=== PATIENT | male | born 1960 | race Caucasian/White ===

== ENCOUNTER 2017-03-23 21:33 | Observation (INO) | payer SELFPAY ==
[~2017-03-23] VITALS: Ht 175.3 cm; Wt 68.0 kg
[~2017-03-23 21:33] MED LIST: ACHD5005 PO; AMOX-355 PO; APIX5TAB PO; MULT-609 PO; OXYC-471 PO; PRD10T PO; RIVA15TA PO
[2017-03-23] MEDS ORDERED: LACTATED RINGERS 1,000 ML IV ONE (21:44)
[2017-03-23 21:58] LABS: BASOPHILS # (AUTO) 0.1 10^3/uL (0.0-0.1); BASOPHILS % (AUTO) 1 % (0-10); EOSINOPHILS # (AUTO) 0.2 10^3/uL (0.0-0.3); EOSINOPHILS % (AUTO) 2 % (0-10); HEMATOCRIT 48 % (40-54); HEMOGLOBIN 17.4 G/DL (13.3-17.7); LYMPHOCYTES # (AUTO) 3.4 X 10^3 (1.0-4.0); LYMPHOCYTES % (AUTO) 42 % (12-44); MEAN CORPUSCULAR HEMOGLOBIN 37 PG (25-34); MEAN CORPUSCULAR HGB CONC 36 G/DL (32-36); MEAN CORPUSCULAR VOLUME 101 FL (80-99); MEAN PLATELET VOLUME 9.2 FL (7.4-10.4); MONOCYTES # (AUTO) 0.6 X 10^3 (0.0-1.0); MONOCYTES % (AUTO) 7 % (0-12); NEUTROPHILS # (AUTO) 3.9 X 10^3 (1.8-7.8); NEUTROPHILS % (AUTO) 48 % (42-75); PLATELET COUNT 192 10^3/uL (130-400); RED BLOOD COUNT 4.77 10^6/uL (4.35-5.85); RED CELL DISTRIBUTION WIDTH 13.4 % (10.0-14.5); WHITE BLOOD COUNT 8.2 10^3/uL (4.3-11.0)
[2017-03-23 22:11] LABS: INR 0.8 (0.8-1.4); PROTHROMBIN TIME PATIENT 11.6 SEC (12.2-14.7)
[2017-03-23] MEDS ORDERED: PRD20T (22:17)
[2017-03-23] MEDS ORDERED: ALBU2.5V4 (22:17)
[2017-03-23 22:18] LABS: ALANINE AMINOTRANSFERASE 16 U/L (0-55); ALBUMIN 4.4 GM/DL (3.2-4.5); ALKALINE PHOSPHATASE 69 U/L (40-136); AMYLASE 195 U/L (25-125); BILIRUBIN,TOTAL 0.9 MG/DL (0.1-1.0); BUN/CREATININE RATIO 9; CALCIUM 9.2 MG/DL (8.5-10.1); CARBON DIOXIDE 25 MMOL/L (21-32); CHLORIDE 99 MMOL/L (98-107); CREATININE SERUM 0.85 MG/DL (0.60-1.30); GFR ESTIMATED > 60; GLUCOSE 88 MG/DL (70-105); LIPASE 370 U/L (8-78); SODIUM 139 MMOL/L (135-145); TOTAL PROTEIN 7.2 GM/DL (6.4-8.2)
[2017-03-23 22:22] LABS: BILIRUBIN,URINE NEGATIVE (NEGATIVE); CLARITY,URINE CLEAR; COLOR,URINE YELLOW; GLUCOSE, URINE (UA) NEGATIVE (NEGATIVE); KETONES,URINE NEGATIVE (NEGATIVE); LEUKOCYTE ESTERASE ,URINE NEGATIVE (NEGATIVE); NITRITE,URINE NEGATIVE (NEGATIVE); PH,URINE 6.5 (5-9); PROTEIN,URINE NEGATIVE (NEGATIVE); UROBILINOGEN,URINE NORMAL (NORMAL)
[2017-03-23 22:29] LABS: SQUAMOUS EPITHELIAL CELL,UR RARE /HPF
[2017-03-23 22:43] LABS: AMPHETAMINE SCREEN, URINE NEGATIVE (NEGATIVE); BARBITURATE SCREEN URINE NEGATIVE (NEGATIVE); BENZODIAZEPINES SCREEN URINE NEGATIVE (NEGATIVE); CANNABINOID SCREEN, URINE NEGATIVE (NEGATIVE); COCAINE SCREEN URINE NEGATIVE (NEGATIVE); METHADONE STAT NEGATIVE (NEGATIVE); METHAMPHETAMINE SCREEN URINE S NEGATIVE (NEGATIVE); OPIATE SCREEN URINE NEGATIVE (NEGATIVE); OXYCODONE STAT NEGATIVE (NEGATIVE); PROPOXYPHENE STAT NEGATIVE (NEGATIVE); TRICYCLIC ANTIDEPRESSANTS SCRE NEGATIVE (NEGATIVE)
[2017-03-24] VITALS (16 sets, daily range): BP systolic 92–113; BP diastolic 64–84
[2017-03-24] MEDS ORDERED: D5 1/2 NS 1000 ML IV SOLUTION 1,000 ML IV ONE (01:34)
[2017-03-24] MEDS: D5 1/2 NS 1000 ML IV SOLUTION 1,000 ML IV SCH ×2 (02:53→10:21)
[2017-03-24 04:06] LABS: BASOPHILS % (AUTO) 0 % (0-10); EOSINOPHILS # (AUTO) 0.2 10^3/uL (0.0-0.3); EOSINOPHILS % (AUTO) 3 % (0-10); HEMATOCRIT 42 % (40-54); LYMPHOCYTES # (AUTO) 2.3 X 10^3 (1.0-4.0); LYMPHOCYTES % (AUTO) 33 % (12-44); MEAN CORPUSCULAR HEMOGLOBIN 36 PG (25-34); MEAN CORPUSCULAR HGB CONC 36 G/DL (32-36); MEAN CORPUSCULAR VOLUME 101 FL (80-99); MEAN PLATELET VOLUME 9.6 FL (7.4-10.4); MONOCYTES # (AUTO) 0.6 X 10^3 (0.0-1.0); MONOCYTES % (AUTO) 9 % (0-12); NEUTROPHILS # (AUTO) 3.8 X 10^3 (1.8-7.8); NEUTROPHILS % (AUTO) 56 % (42-75); PLATELET COUNT 191 10^3/uL (130-400); RED BLOOD COUNT 4.16 10^6/uL (4.35-5.85); RED CELL DISTRIBUTION WIDTH 13.2 % (10.0-14.5); WHITE BLOOD COUNT 6.9 10^3/uL (4.3-11.0)
[2017-03-24 04:36] LABS: ALANINE AMINOTRANSFERASE 13 U/L (0-55); ALBUMIN 3.6 GM/DL (3.2-4.5); ALKALINE PHOSPHATASE 58 U/L (40-136); AMYLASE 97 U/L (25-125); BILIRUBIN,TOTAL 0.7 MG/DL (0.1-1.0); BUN/CREATININE RATIO 10; CALCIUM 8.5 MG/DL (8.5-10.1); CARBON DIOXIDE 26 MMOL/L (21-32); CHLORIDE 107 MMOL/L (98-107); GFR ESTIMATED > 60; GLUCOSE 105 MG/DL (70-105); LIPASE 75 U/L (8-78); MAGNESIUM 1.6 MG/DL (1.8-2.4); PHOSPHORUS 2.2 MG/DL (2.3-4.7); SODIUM 143 MMOL/L (135-145); TOTAL PROTEIN 5.7 GM/DL (6.4-8.2)
[2017-03-24] MEDS ORDERED: POTASSIUM CL 10MEQ/50ML IVPB 50 ML IV SCH (06:00)
[2017-03-24] MEDS ORDERED: MAGNESIUM 1 GM/100 ML IVPB 100 ML IV SCH (06:00)
[2017-03-24] MEDS ORDERED: KCL 20 MEQ TAB (K-DUR) PO SCH (06:00)
[2017-03-24] MEDS: MAGNESIUM 1 GM/100 ML IVPB 100 ML IV SCH ×2 (06:37→08:37)
--- NOTE | 2017-03-24 07:42 | Diagnostic Imaging Report ---
INDICATION: Trauma. Exam compared with CT chest, abdomen and pelvis performed 08/14/2015 which include sagittal and coronal reconstructions. FINDINGS: Endplate concavities with vertebral stature loss involving the C7, T2, T3, T4 and T5 levels are redemonstrated from prior and showed no progressive stature loss and these are believed stable and chronic. There are old healed deformities to the sternum partially visualized at this exam. Lower thoracic stature is unremarkable. The lumbar vertebral body heights and their alignment appeared unremarkable. The visualized ribs segments showed no acute fracture. There is no evidence for paravertebral hematoma. Advanced COPD with right greater than left biapical parenchymal scarring. No dislocation. IMPRESSION: Stable old healed spinal deformities. No acute injury evident. Dictated by: Dictated on workstation # [id number]
--- NOTE | 2017-03-24 07:54 | Diagnostic Imaging Report ---
PROCEDURE: CT chest, abdomen, and pelvis with contrast. TECHNIQUE: Multiple contiguous axial images were obtained through the chest, abdomen, and pelvis after the administration of intravenous contrast. INDICATION: Trauma. Chest: Exam compared with previous dated 08/14/2015. Old healed deformities to the clavicles, left shoulder, multiple ribs and multiple lower cervical and upper thoracic vertebral bodies are unchanged. An acute or unhealed fracture deformity is not identified. Severe COPD chronic with right greater than left apical pleural-parenchymal scarring. No findings of lung contusion. No pneumothorax or hemothorax. The aorta is intact. No pericardial hemorrhage. Abdomen and pelvis: There is no free fluid or hemoperitoneum. There is no free air. No acute fracture deformity. No mass or adenopathy. No bowel, biliary or urinary tract obstruction. IMPRESSION: Chest: COPD and old osseous deformities. No acute posttraumatic sequelae identified. Abdomen and pelvis: No findings of solid or hollow visceral injury or acute bony injury. Dictated by: Dictated on workstation # [id number]
--- NOTE | 2017-03-24 07:59 | Diagnostic Imaging Report ---
PROCEDURE: CT head, face, and cervical spine without contrast. TECHNIQUE: Multiple contiguous axial images were obtained through the head, neck, and facial bones without the use of intravenous contrast. Sagittal and coronal reformations through the cervical spine and facial bones were also performed. INDICATION: Fall, bruising and pain CT HEAD: There is no hemorrhage, hydrocephalus, edema, mass, mass effect or evidence for elevated intracranial pressures. There is some right preseptal and facial soft tissue swelling, the calvarium revealed no fracture deformity or depressed injury. There is no hemo-sinus although there is membrane thickening of ethmoid air cells anteriorly as well as the left maxillary sinus. The mastoids are clear. No fracture deformity evident. CT cervical spine: Chronic superior end plate concavity smooth and well marginated. C7 is unchanged when correlated with reconstruction views obtained during the time of a chest CT 08/14/2015. Remaining levels maintain a normal stature and are aligned anatomically. The skull base intact. Incidental incomplete fusion of the C1 arch posteriorly is a variant noted. No paravertebral hemorrhage. No substantial canal stenosis. CT facial bones: Mandible is intact. Zygomatic arches intact. Nasal bones and bony nasal septum intact. There is mild paranasal sinus membrane thickening without air-fluid level or hemo-sinus. Pterygoid plates intact. There is some preseptal orbital soft tissue swelling on the right, no retrobulbar or post-septal hematoma. No proptosis. Globe morphology unremarkable. Anterior and posterior portillo of frontal sinus is intact. IMPRESSION: CT head: Negative. CT cervical spine: Chronic stature loss and endplate concavity is at the C7 level stable from priors. No acute cervical abnormality. CT facial bones: Right facial and preseptal orbital soft tissue swelling with chronic paranasal sinus membrane thickening. However, no facial fracture or hemo-sinus demonstrated. Dictated by: Dictated on workstation # [id number]
[2017-03-24] MEDS ORDERED: THIAMINE INJECTION 100 MG, FOLIC ACID INJECTION 1 MG, VITAMIN MULTI INJECTION 10 ML, MA... IV SCH ×5 (09:00)
[2017-03-24] MEDS ORDERED: MUPIROCIN 2% OINT 22 GM (BACTROBAN) TUBE TOP SCH (09:00)
[2017-03-24] MEDS ORDERED: TRAM50TA2 PO (12:02)
--- NOTE | 2017-03-24 12:03 | Discharge Inst-Simple/Standard ---
Discharge Inst-Standard Discharge Medications New, Converted or Re-Newed RX: RX on Chart Patient Instructions/Follow Up Plan of Care/Instructions/FU: Triple antibiotic ointment to the face. F/.U with his primary Activity as Tolerated: Yes Discharge Diet: No Restrictions Planned Outpatient Orders/Ref. Pneu Vac Indicated: Yes LAILA SALAMANCA MD Mar 24, 2017 12:03 pm
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
--- OUTSIDE RECORDS SUMMARY | 2017-03-25 10:48 | XMS REPORT ---
Author Author MARCIA GUZMÁN Organization [employer] Address Unknown Phone Unavailable Care Team Providers Care Grocery Sacker Name Role Phone MARCIA GUZMÁN CP Unavailable Allergies No Known Allergies Problems Problem Type Condition Code Onset Dates Condition Status Problem Acute deep vein thrombosis (DVT) of proximal vein of left lower extremity I82.4Y2 Active Medications Medication Code System Code Instructions Start Date End Date Status Dosage Eliquis [facility] [address]-59 5 mg Orally 2 times a day Nov 17, 2015 1 tablet Results No Known Results Summary Purpose [employer] Submission
--- OUTSIDE RECORDS SUMMARY | 2017-03-25 10:49 | XMS REPORT ---
Author Author RIC LI [facility] Address [address] [place] [address] Care Team Providers Care Plant Control Aide Name Role Phone RIC LI Unavailable PROBLEMS Type Condition ICD9-CM Code PUL34-LQ Code Onset Dates Condition Status SNOMED Code Problem Pulmonary emphysema, unspecified emphysema type J43.9 Active 11094296 Problem Age related osteoporosis M81.0 Active 932525237 Problem Chronic deep vein thrombosis (DVT) of popliteal vein of both lower extremities I82.533 Active 479728387701680 Problem Acute deep vein thrombosis (DVT) of proximal vein of left lower extremity I82.4Y2 Active 480262307036 ALLERGIES Unknown Allergies SOCIAL HISTORY No smoking Hx information available PLAN OF CARE VITAL SIGNS MEDICATIONS Unknown Medications RESULTS No Results PROCEDURES No Known procedures IMMUNIZATIONS No Known Immunizations
--- OUTSIDE RECORDS SUMMARY | 2017-03-25 10:49 | XMS REPORT ---
Author Author RIC LI Organization [facility] Address [address] [place] [address] Care Team Providers Care Green Prize Packer Name Role Phone RIC LI Unavailable PROBLEMS Type Condition ICD9-CM Code LXZ83-LN Code Onset Dates Condition Status SNOMED Code Problem Acute exacerbation of chronic obstructive pulmonary disease (COPD) J44.1 Active 358075086 Problem Chronic deep vein thrombosis (DVT) of popliteal vein of both lower extremities I82.533 Active 184479252628466 Problem Acute deep vein thrombosis (DVT) of proximal vein of left lower extremity I82.4Y2 Active 734101535699 Problem Pulmonary emphysema, unspecified emphysema type J43.9 Active 34433067 Problem Age related osteoporosis M81.0 Active 482566705 ALLERGIES No Known Allergies SOCIAL HISTORY Never Assessed PLAN OF CARE Activity Details Follow Up 3 Months with [place] Reason: VITAL SIGNS Height 67 in 2016-07-04 Weight 110 lbs 2016-07-04 Temperature 98 degrees Fahrenheit 2016-07-04 Heart Rate 80 bpm 2016-07-04 Respiratory Rate 20 2016-07-04 BMI 17.23 kg/m2 2016-07-04 Blood pressure systolic 90 mmHg 2016-07-04 Blood pressure diastolic 60 mmHg 2016-07-04 MEDICATIONS Medication Instructions Dosage Frequency Start Date End Date Duration Status Eliquis 5 mg Orally 2 times a day 1 tablet 12h Nov, Active Combivent Respimat 20-100 MCG/ACT Inhalation Four times a day 1 puff 6h June, Active Advair Diskus 100-50 MCG/DOSE Inhalation Twice a day 1 puff 12h Active Combivent Active RESULTS No Results PROCEDURES Procedure Date Ordered Result Body Site PCV 13 July 04, 2016 SINGLE IMMUNIZATION ADMIN July 04, 2016 IMMUNIZATIONS Vaccine Route Administration Date Status PCV 13 IM Intramuscular July 04, 2016 Administered MEDICAL (GENERAL) HISTORY Type Description Date Medical History 2016 blood clot Medical History emphysema Surgical History thoracoscopy Surgical History osteomyelitis right leg x 4 Hospitalization History pneumonia Hospitalization History blood clots x5 Hospitalization History broken ribs, clavicle, scapula and collapsed left lung.
--- OUTSIDE RECORDS SUMMARY | 2017-03-25 10:49 | XMS REPORT ---
Author Author RIC LI Organization [employer] Address Unknown Phone Unavailable Care Team Providers Care Senior Financial Accountant Name Role Phone RIC LI CP Unavailable Allergies No Known Allergies Problems No Known Problems Medications No Known Medications Results No Known Results Summary Purpose [employer] Submission
--- OUTSIDE RECORDS SUMMARY | 2017-03-25 10:49 | XMS REPORT ---
Author Author MARCIA GUZMÁN [facility] [employer] Address Unknown Phone Unavailable Care Team Providers Care Power Screwdriver Operator Name Role Phone MARCIA GUZMÁN CP Unavailable Allergies, Adverse Reactions, Alerts Substance Reaction Event Type N.K.D.A. Info Not Available Non Drug Allergy Problems Problem Type Condition Code Onset Dates Condition Status Assessment Acute deep vein thrombosis (DVT) of proximal vein of left lower extremity I82.4Y2 Active Problem Acute deep vein thrombosis (DVT) of proximal vein of left lower extremity I82.4Y2 Active Medications Medication Code System Code Instructions Start Date End Date Status Dosage Eliquis [facility] [address]-57 5 mg Orally 2 times a day Nov 17, 2015 as directed Procedures Procedure Coding System Code Date Office Visit, New Pt., Level 3 CPT-4 37823 Nov 17, 2015 Vital Signs Date/Time: Nov 17, 2015 Cardiac Monitoring Heart Rate 96 bpm Weight 99.4 lbs Height 67 in BMI 15.57 Index Blood Pressure Diastolic 70 mmHg Blood Pressure Systolic 118 mmHg Results No Known Results Summary Purpose [employer] Submission
--- OUTSIDE RECORDS SUMMARY | 2017-03-25 10:49 | XMS REPORT ---
Author Author RIC LI Organization [employer] Address Unknown Phone Unavailable Care Team Providers Care Reproduction Technician Name Role Phone RIC LI CP Unavailable Allergies, Adverse Reactions, Alerts Substance Reaction Event Type N.K.D.A. Info Not Available Non Drug Allergy Problems Problem Type Condition Code Onset Dates Condition Status Problem Age related osteoporosis M81.0 Active Problem Chronic deep vein thrombosis (DVT) of popliteal vein of both lower extremities I82.533 Active Problem Pulmonary emphysema, unspecified emphysema type J43.9 Active Assessment Tobacco use Z72.0 Active Assessment Encounter for immunization Z23 Active Assessment Chronic lung disease J98.4 Active Assessment Acute deep vein thrombosis (DVT) of both lower extremities, unspecified vein I82.403 Active Medications Medication Code System Code Instructions Start Date End Date Status Dosage Eliquis NDC [address]-55 5 mg Orally 2 times a day Nov 17, 2015 1 tablet Combivent NDC 0 not defined Procedures Procedure Coding System Code Date SINGLE IMMUNIZATION ADMIN CPT-4 20403 Dec 01, 2015 Office Visit, Est Pt., Level 4 CPT-4 26335 Dec 01, 2015 FLUARIX QUAD P-FREE 3 AND UP .50 2015 CPT-4 12974 Dec 01, 2015 Vital Signs Date/Time: Dec 01, 2015 Cardiac Monitoring Heart Rate 88 bpm Weight 105 lbs Height 67 in BMI 16.44 Index Blood Pressure Diastolic 80 mmHg Blood Pressure Systolic 118 mmHg Results No Known Results Immunizations Vaccine Administration Date FLUARIX QUAD P-FREE 3 AND UP .50 2015Dec 01, 2015 Summary Purpose [employer] Submission
--- NOTE | 2017-03-26 12:23 | ED Fall/Injury ---
General Chief Complaint: Trauma-Non Activation Stated Complaint: CLOSED HEAD INJURY W/UNKNOWN LOSS OF CONSCIOUSNESS Nursing Triage Note: fell leaving bar- laceration times 2 over rt eye and at heair line- bleeding controlled. C/O neck and head pain, rt side pain in ribs. C Collar on at 2135 Source: EMS Exam Limitations: intoxication, other (PT ABLE TO GIVE ONLY MINIMAL INFORMATION DUE TO INTOXICATION) History of Present Illness Date Seen by Provider: Mar 23, 2017 Time Seen by Provider: 21:37 Initial Comments PT ARRIVES VIA EMS--NO CERVICAL COLLAR IN PLACE PT VERY INTOXICATED AND REPORTEDLY PT FELL HE WAS WALKING OUT OF LOCAL BAR IS UNKNOWN IF PT HAD LOSS OF CONSCIOUSNESS OR IF THIS WAS WITNESSED BY ANYONE ON ARRIVAL TO ER, PT C/O NECK PAIN AND PT IMMEDIATELY PLACED IN CERVICAL COLLAR C/O RIGHT RIB PAIN NO PARESTHESIAS OR MOTOR DEFICITS NO NAUSEA/VOMITING PT HAS BEEN INCONTINENT OF STOOL PRIOR TO ARRIVAL TO ER. Location Injury Occurred: bar NO PCP--MOVED HERE 2 YEARS AGO FROM [place] Allergies and Home Medications Allergies Coded Allergies: No Known Drug Allergies (Unverified , 03/23/17) Home Medications Albuterol Sulfate 2.5 Mg/3 Ml Vial.neb, (Reported) Multivitamin 1 Each Tablet, 1 EACH PO, (Reported) Prednisone 20 Mg Tab, (Reported) Rivaroxaban 15 Mg Tablet, 15 MG PO BID, #42 Prescribed by: MEE AGUILAR on 11/15/15 1922 Tramadol HCl 50 Mg Tablet, 50 MG PO Q12H PRN for PAIN-MODERATE, #20 Prescribed by: LAILA SALAMANCA on 03/24/17 1202 Constitutional: no symptoms reported Eyes: No Symptoms Reported Ears, Nose, Mouth, Throat: no symptoms reported Respiratory: no symptoms reported Cardiovascular: see HPI, chest pain Gastrointestinal: no symptoms reported Genitourinary: no symptoms reported Musculoskeletal: see HPI, neck pain Skin: no symptoms reported Psychiatric/Neurological: No Symptoms Reported Past Tcyxyxj-Dndtep-Fdzoty Hx Patient Social History Alcohol Use: Regular Use (HEAVY, DAILY USE--VODKA AND BEER) Number of Drinks Today: FF Alcohol Beverage of Choice: Beer, Vodka Recreational Drug Use: No Smoking Status: Current Everyday Smoker Type Used: Cigarettes Recent Foreign Travel: No Contact w/Someone Who Travel: No Recent Infectious Disease Expo: No Recent Hopitalizations: No Physical Abuse: No Sexual Abuse: No Mistreated: No Fear: No Immunizations Up To Date Tetanus Booster (TDap): Unknown Date of Pneumonia Vaccine: Sep 07, 2011 Date of Influenza Vaccine: Oct 22, 2016 Seasonal Allergies Seasonal Allergies: No Surgeries History of Surgeries: Yes (thoracoscopy rt lobe, rt knee scope & bone graft; BILATERAL CHEST TUBES--LAST ONE IN 2016 ON LEFT. ) Surgeries: Orthopedic Respiratory History of Respiratory Disorde: Yes Respiratory Disorders: Asthma, COPD, Emphysema Currently Using CPAP: No Currently Using BIPAP: No Cardiovascular History of Cardiac Disorders: Yes (HYPOTENSION) Cardiac Disorders: Deep Vein Thrombosis Neurological History of Neurological Disord: No Reproductive System Hx Reproductive Disorders: No Gastrointestinal History of Gastrointestinal Di: Yes Gastrointestinal Disorders: Gastroesophageal Reflux, Wallis's Esophagus, Polyps, Ulcer Musculoskeletal History of Musculoskeletal Dis: Yes (MULTIPLE FALLS, LIKELY RELATED TO ALCOHOL ABUSE. RIB FRACTURES ) Musculoskeletal Disorders: Osteoporosis, Arthritis, Back Injury, Chronic Back Pain Endocrine History of Endocrine Disorders: No Cancer History of Cancer: No Psychosocial History of Psychiatric Problem: Yes Behavioral Health Disorders: Anxiety, PTSD, Bipolar, Personality Disorder, Depression Suicide Risk Score: 0 Integumentary History of Skin or Integumenta: No Blood Transfusions History of Blood Disorders: Yes (hx of DVT) Adverse Reaction to a Blood Tr: No Family Medical History Significant Family History: No Pertinent Family Hx Family Medial History: Asthma 19 MOTHER Cardiovascular disease G8 SISTER (blood clots) Colon cancer 19 MOTHER (polyps/hiatal hernia) Congenital disease 19 MOTHER (nuerogenic syncope) Neoplasm Physical Exam Vital Signs Vital Signs - First Documented 03/23/17 21:35 Temp 97.4 Pulse 87 Resp 18 B/P (MAP) 100/77 (85) Pulse Ox 95 Capillary Refill : Less Than 3 Seconds General Appearance: no apparent distress, thin, other (PT REEKS OF ETOH AND CIRAGETTES. ) HEENT: PERRL/EOMI, other (EXTENSIVE ABRASIONS /SKIN AVULSIONS TO FOREHEAD, PERIORBITAL HEMATOMA TO RIGHT EYE AND IT IS SWOLLEN SHUT AT THIS TIME. ) Neck: tender lateral, tender midline Cardiovascular: regular rate, rhythm, no murmur Respiratory: no respiratory distress, wheezing, expiration, other (DIFFUSE CHEST WALL / RIB TENDERNESS, BUT MOST TENDER OVER RIGHT LOWER RIBS. 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 UNABLE TO DETERMINE LEVEL OF ORIENTATION DUE TO INTOXICATION) Skin: normal color, warm/dry Progress/Results/Core Measures Results/Orders Lab Results Laboratory Tests Test 03/23/17 21:45 03/23/17 22:16 Range/Units White Blood Count 8.2 4.3-11.0 10^3/uL Red Blood Count 4.77 4.35-5.85 10^6/uL Hemoglobin 17.4 13.3-17.7 G/DL Hematocrit 48 40-54 % Mean Corpuscular Volume 101 H 80-99 FL Mean Corpuscular Hemoglobin 37 H 25-34 PG Mean Corpuscular Hemoglobin Concent 36 32-36 G/DL Red Cell Distribution Width 13.4 10.0-14.5 % Platelet Count 192 130-400 10^3/uL Mean Platelet Volume 9.2 7.4-10.4 FL Neutrophils (%) (Auto) 48 42-75 % Lymphocytes (%) (Auto) 42 12-44 % Monocytes (%) (Auto) 7 0-12 % Eosinophils (%) (Auto) 2 0-10 % Basophils (%) (Auto) 1 0-10 % Neutrophils # (Auto) 3.9 1.8-7.8 X 10^3 Lymphocytes # (Auto) 3.4 1.0-4.0 X 10^3 Monocytes # (Auto) 0.6 0.0-1.0 X 10^3 Eosinophils # (Auto) 0.2 0.0-0.3 10^3/uL Basophils # (Auto) 0.1 0.0-0.1 10^3/uL Prothrombin Time 11.6 L 12.2-14.7 SEC INR Comment 0.8 0.8-1.4 Activated Partial Thromboplast Time 28 24-35 SEC Sodium Level 139 135-145 MMOL/L Potassium Level 4.0 3.6-5.0 MMOL/L Chloride Level 99 98-107 MMOL/L Carbon Dioxide Level 25 21-32 MMOL/L Anion Gap 15 H 5-14 MMOL/L Blood Urea Nitrogen 8 7-18 MG/DL Creatinine 0.85 0.60-1.30 MG/DL Estimat Glomerular Filtration Rate > 60 BUN/Creatinine Ratio 9 Glucose Level 88 70-105 MG/DL Calcium Level 9.2 8.5-10.1 MG/DL Magnesium Level 2.0 1.8-2.4 MG/DL Total Bilirubin 0.9 0.1-1.0 MG/DL Aspartate Amino Transf (AST/SGOT) 27 5-34 U/L Alanine Aminotransferase (ALT/SGPT) 16 0-55 U/L Alkaline Phosphatase 69 40-136 U/L Troponin I < 0.30 <0.30 NG/ML Total Protein 7.2 6.4-8.2 GM/DL Albumin 4.4 3.2-4.5 GM/DL Amylase Level 195 H 25-125 U/L Lipase 370 H 8-78 U/L Serum Alcohol 306 *H <10 MG/DL Urine Color YELLOW Urine Clarity CLEAR Urine pH 6.5 5-9 Urine Specific [place] 1.010 L 1.016-1.022 Urine Protein NEGATIVE NEGATIVE Urine Glucose (UA) NEGATIVE NEGATIVE Urine Ketones NEGATIVE NEGATIVE Urine Nitrite NEGATIVE NEGATIVE Urine Bilirubin NEGATIVE NEGATIVE Urine Urobilinogen NORMAL NORMAL MG/DL Urine Leukocyte Esterase NEGATIVE NEGATIVE Urine RBC (Auto) NEGATIVE NEGATIVE Urine RBC NONE /HPF Urine WBC NONE /HPF Urine Squamous Epithelial Cells RARE /HPF Urine Crystals NONE /LPF Urine Bacteria NONE /HPF Urine Casts NONE /LPF Urine Mucus NEGATIVE /LPF Urine Culture Indicated NO Urine Opiates Screen NEGATIVE NEGATIVE Urine Oxycodone Screen NEGATIVE NEGATIVE Urine Methadone Screen NEGATIVE NEGATIVE Urine Propoxyphene Screen NEGATIVE NEGATIVE Urine Barbiturates Screen NEGATIVE NEGATIVE Ur Tricyclic Antidepressants Screen NEGATIVE NEGATIVE Urine Phencyclidine Screen NEGATIVE NEGATIVE Urine Amphetamines Screen NEGATIVE NEGATIVE Urine Methamphetamines Screen NEGATIVE NEGATIVE Urine Benzodiazepines Screen NEGATIVE NEGATIVE Urine Cocaine Screen NEGATIVE NEGATIVE Urine Cannabinoids Screen NEGATIVE NEGATIVE My Orders Orders - MARYCRUZ,JUAN ANTONIO K DO Saline Lock/Iv-Start (03/23/17 21:44) Ekg Tracing (03/23/17 21:44) Monitor-Rhythm Ecg Trace Only (03/23/17 21:44) Ct Head/Face/Cervical Wo (03/23/17 21:44) Ct Thoracic/Lumbar Spine Wo (03/23/17 21:44) Alcohol (03/23/17 21:44) Amylase (03/23/17 21:44) Cbc With Automated Diff (03/23/17 21:44) Comprehensive Metabolic Panel (03/23/17 21:44) Drug Screen Stat (Urine) (03/23/17 21:44) Lipase (03/23/17 21:44) Magnesium (03/23/17 21:44) Protime With Inr (03/23/17 21:44) Partial Thromboplastin Time (03/23/17 21:44) Troponin I (03/23/17 21:44) Ua Culture If Indicated (03/23/17 21:44) Saline Lock/Iv-Start (03/23/17 21:44) Lactated Ringers (Lr 1000 Ml Iv Solution (03/23/17 21:44) Ct Chest/Abdomen/Pelvis W (03/23/17 21:44) Vital Signs/I&O Vital Sign - Last 12Hours 03/23/17 21:35 Temp 97.4 Pulse 87 Resp 18 B/P (MAP) 100/77 (85) Pulse Ox 95 Blood Pressure Mean: 86 Progress Note : Progress Note PT REMAINED BELLIGERANT DURING ER STAY TO ALL STAFF MEMBERS PT RIPPED CERVICAL COLLAR OFF MORE THAN ONCE DURING ER STAY PT GOT UP AND STOOD ON BED IN CT SCAN, AND ALSO DID SAME WHEN BACK IN ER ROOM [place] [employer] CONTACTED FOR ASSIST. NO DETERIORATION IN PT'S CONDITION DURING ER STAY PT TRYING TO LEAVE--IS VERY OBVIOUS THAT PT IS TOO INTOXICATED TO LEAVE, WELL HAVING HAD A HEAD INJURY, AND HAS NECK PAIN, AND IS AT RISK FOR INJURING HIMSELF BASED ON BEHAVIOR DURING ER STAY WOUNDS TO FOREHEAD ARE NOT REPAIRABLE, ARE DEEP ABRASIONS, SKIN AVULSIONS. PT REFUSES TETANUS VACCINATION ECG Initial ECG Impression Date: Mar 23, 2017 Initial ECG Impression Time: 23:30 Initial ECG Rate: 96 Initial ECG Rhythm: Normal Sinus Initial ECG Impression: Nonspecific Changes Initial ECG Comparisson: No Previous ECG Available Departure Communication (Admissions) Time/Spoke to Admitting Phy: 00:[address] SALAMANCA, TRAUMA SURGEON PATHOLOGY TECH, ACCEPTS PT FOR ADMIT. Impression Impression: Primary Impression: Alcohol intoxication in active alcoholic Additional Impressions: HEAD INJURY WITH UNKNOWN LOSS OF CONSCIOUSNESS Neck pain Chest wall contusion MILDLY ELEVATED PANCREATIC ENZYMES Disposition: ADMITTED INPATIENT Condition: Stable/Unchanged Admissions Decision to Admit Reason: Admit from ER (Trauma) Decision to Admit/Date: Mar 24, 2017 Time/Decision to Admit Time: 00:30 Departure-Patient Inst. Referrals: [facility] (PCP) Primary Care Physician RIC LI MD (Family) Primary Care Physician Patient Instructions: Closed Head Injury Scripts Tramadol HCl (Tramadol HCl) 50 Mg Tablet 50 MG PO Q12H Y for PAIN-MODERATE, #20 TAB Prov: LAILA SALAMANCA MD 03/24/17 JUAN ANTONIO JOEL DO Mar 26, 2017 12:23
== END 2017-03-24 12:02 | disposition home or self-care (01) ==
LOC: EDUNIT# 21:33 → ER 21:34 → ICU 21:35 → UNDOADMOB 03-24 00:30 → ICU 03-24 00:30 → UNDODISOB 03-24 13:33
PROVIDERS: ADMIT Surgery; ATTEND Surgery
DX: S00.81XA Abrasion of other part of head, initial encounter (principal); S20.20XA Contusion of thorax, unspecified, initial encounter; F10.129 Alcohol abuse with intoxication, unspecified; R74.8 Abnormal levels of other serum enzymes; M81.0 Age-related osteoporosis without current pathological fracture; K21.9 Gastro-esophageal reflux disease without esophagitis; J43.8 Other emphysema; Z86.718 Personal history of other venous thrombosis and embolism; F31.9 Bipolar disorder, unspecified; F41.9 Anxiety disorder, unspecified; F43.10 Post-traumatic stress disorder, unspecified; F17.210 Nicotine dependence, cigarettes, uncomplicated; W19.XXXA Unspecified fall, initial encounter
CPT/HCPCS: 36415; 70450; 70486; 71260; 72125; 72128; 72131; 74177; 80053; 80306; 80320; 81000; 82150; 83690; 83735; 84100; 84484; 85025; 85610; 85730; 93005; 93041; 96360; G0378

== ENCOUNTER 2017-06-03 18:50 | Observation (INO) | payer SELFPAY ==
[~2017-06-03] VITALS: Ht 170.2 cm; Wt 47.6 kg
[~2017-06-03 18:50] MED LIST changes: +ALBU2.5V4; +PRD20T; +TRAM50TA2 PO
--- NOTE | 2017-06-03 19:44 | ED EENT ---
History of Present Illness General Chief Complaint: Oral/Throat Problems Stated Complaint: SOMETHING CAUGHT IN THROAT,TROUBLE SWALLOWING Nursing Triage Note: pt presents to er with complaint of meat stuck in his throat. states it has been caught since 8pm yesterday. states he is unable to eat or drink. Source: patient (PT GIVES MUCH CONFLICTING INFORMATION ), old records History of Present Illness Date Seen by Provider: Jun 03, 2017 Time Seen by Provider: 19:05 Initial Comments PT ARRIVES VIA POV FROM HOME PT STATES HE HAS HAD A PIECE OF STEAK STUCK IN HIS THROAT SINCE 1999 LAST NIGHT STATES HE HAS NOT BEEN ABLE TO EVEN SWALLOW HIS OWN SALIVA SINCE THEN PT DENIES ANY HISTORY OF SIMILAR, BUT STATES HE HAS HEBERT'S ESOPHAGUS, BUT IS NOT TAKING ANY ACID REDUCERS / GI MEDICATIONS PT HAS EXTENSIVE HISTORY OF ALCOHOL ABUSE, CLAIMS HE HAS NOT HAD ANY ALCOHOL SINCE Sunday06/01/17 PT DENIES ANY DT SYMPTOMS PT HAS HISTORY OF DVT'S AND IS SUPPOSED TO BE ON ELIQUIS, BUT HAS NOT TAKEN ANY FOR A WEEK--STATES HE RAN OUT. PCP: DR. LI/ [facility] [place] Allergies and Home Medications Allergies Coded Allergies: No Known Drug Allergies (Unverified , 03/23/17) Home Medications Rivaroxaban 15 Mg Tablet, 15 MG PO BID Prescribed by: MEE AGUILAR on 11/15/151921 Patient Home Medication List Home Medication List Reviewed: Yes Review of Systems Constitutional: no symptoms reported Throat: see HPI Respiratory: no symptoms reported Cardiovascular: no symptoms reported Gastrointestinal: see HPI Neurological: No Symptoms Reported Past Pxnjotu-Jalcir-Yiqeup Hx Patient Social History Alcohol Use: Regular Use (HEAVY, DAILY USE--WILL NOT STATE HOW MUCH) Number of Drinks Today: FF Alcohol Beverage of Choice: Beer, Vodka Recreational Drug Use: No Smoking Status: Current Everyday Smoker (UP TO 2 1/2 PPD) Type Used: Cigarettes (UP TO 2 1/2 PPD) Recent Foreign Travel: No Contact w/Someone Who Travel: No Recent Infectious Disease Expo: No Recent Hopitalizations: No Immunizations Up To Date Tetanus Booster (TDap): Unknown Date of Pneumonia Vaccine: Sep 07, 2011 Date of Influenza Vaccine: Oct 22, 2016 Seasonal Allergies Seasonal Allergies: No Past Medical History Surgeries: Yes (TRAUMA LEFT CHEST/PNEUMOTHORAX/MULTIPLE RIB FX'S; BILATERAL CHEST TUBES--LAST ONE ON LEFT IN 2016; RIGHT THORACOSCOPY; RIGHT KNEE SCOPE AND BONE GRAFT) Orthopedic Respiratory: Yes Asthma, COPD, Emphysema Currently Using CPAP: No Currently Using BIPAP: No Cardiac: Yes (HYPOTENSION; MULTIPLE DVT'S =--NON COMPLIANT WITH ANTICOAGULANTS) Deep Vein Thrombosis Neurological: No Reproductive Disorders: No Genitourinary: No Gastrointestinal: Yes Gastroesophageal Reflux, Hebert's Esophagus, Polyps, Ulcer Musculoskeletal: Yes (MULTIPLE FALLS, LIKELY RELATED TO ALCOHOL ABUSE. RIB FRACTURES WITH PNEUMOTHORAX; LEFT CLAVICLE FX ) Osteoporosis, Arthritis, Back Injury, Chronic Back Pain, Fractures Endocrine: No HEENT: No Cancer: No Psychosocial: Yes Anxiety, PTSD, Bipolar, Personality Disorder, Depression Integumentary: No Blood Disorders: Yes (MULTIPLE DVT'S ) Adverse Reaction/Blood Tranf: No Family Medical History Asthma 19 MOTHER Cardiovascular disease G8 SISTER (blood clots) Colon cancer 19 MOTHER (polyps/hiatal hernia) Congenital disease 19 MOTHER (nuerogenic syncope) Neoplasm No Pertinent Family Hx Physical Exam Vital Signs Vital Signs - First Documented 06/03/17 06/03/17 19:02 20:10 Temp 98.2 Pulse 115 Resp 21 B/P (MAP) 107/76 (86) Pulse Ox 95 O2 Delivery Room Air O2 Flow Rate 2.00 General Appearance: cachetic, other (FREQUENT WET COUGH; CONSTANTLY SPITTING UP SALIVA; REEKS OF CIGARETTES) Eyes: bilateral eye normal inspection, bilateral eye PERRL Mouth/Throat: excessive drooling Neck: normal inspection Cardiovascular: regular rate, rhythm, no edema, no murmur Respiratory: chest non-tender, no respiratory distress, no accessory muscle use , rales (IN BASES BILATERALLY) Gastrointestinal: normal bowel sounds, non tender, soft 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, no motor/sensory deficits, alert, normal mood/affect, oriented x 3 Skin: normal color, warm/dry Progress/Results/Core Measures Lab Results Laboratory Tests Test 06/03/17 20:10 Range/Units White Blood Count 12.3 H 4.3-11.0 10^3/uL Red Blood Count 4.78 4.35-5.85 10^6/uL Hemoglobin 17.1 13.3-17.7 G/DL Hematocrit 49 40-54 % Mean Corpuscular Volume 102 H 80-99 FL Mean Corpuscular Hemoglobin 36 H 25-34 PG Mean Corpuscular Hemoglobin Concent 35 32-36 G/DL Red Cell Distribution Width 12.7 10.0-14.5 % Platelet Count 247 130-400 10^3/uL Mean Platelet Volume 9.5 7.4-10.4 FL Neutrophils (%) (Auto) 78 H 42-75 % Lymphocytes (%) (Auto) 12 12-44 % Monocytes (%) (Auto) 9 0-12 % Eosinophils (%) (Auto) 0 0-10 % Basophils (%) (Auto) 0 0-10 % Neutrophils # (Auto) 9.6 H 1.8-7.8 X 10^3 Lymphocytes # (Auto) 1.5 1.0-4.0 X 10^3 Monocytes # (Auto) 1.2 H 0.0-1.0 X 10^3 Eosinophils # (Auto) 0.0 0.0-0.3 10^3/uL Basophils # (Auto) 0.0 0.0-0.1 10^3/uL Prothrombin Time 12.6 12.2-14.7 SEC INR Comment 0.9 0.8-1.4 Activated Partial Thromboplast Time 29 24-35 SEC Sodium Level 146 H 135-145 MMOL/L Potassium Level 3.8 3.6-5.0 MMOL/L Chloride Level 105 98-107 MMOL/L Carbon Dioxide Level 26 21-32 MMOL/L Anion Gap 15 H 5-14 MMOL/L Blood Urea Nitrogen 14 7-18 MG/DL Creatinine 0.84 0.60-1.30 MG/DL Estimat Glomerular Filtration Rate > 60 BUN/Creatinine Ratio 17 Glucose Level 82 70-105 MG/DL Calcium Level 9.6 8.5-10.1 MG/DL Total Bilirubin 1.7 H 0.1-1.0 MG/DL Aspartate Amino Transf (AST/SGOT) 22 5-34 U/L Alanine Aminotransferase (ALT/SGPT) 18 0-55 U/L Alkaline Phosphatase 71 40-136 U/L Total Protein 7.2 6.4-8.2 GM/DL Albumin 4.6 H 3.2-4.5 GM/DL Serum Alcohol < 10 <10 MG/DL My Orders Orders - JUAN ANTONIO JOEL DO Saline Lock/Iv-Start (06/03/17 19:48) Monitor-Rhythm Ecg Trace Only (06/03/17 19:48) Ct Neck (Soft Tissue) Wo (06/03/17 19:48) Cbc With Automated Diff (06/03/17 19:48) Comprehensive Metabolic Panel (06/03/17 19:48) Protime With Inr (06/03/17 19:48) Partial Thromboplastin Time (06/03/17 19:48) Chest Pa/Lat (2 View) (06/03/17 19:48) Saline Lock/Iv-Start (06/03/17 19:48) Lactated Ringers (Lr 1000 Ml Iv Solution (06/03/17 19:48) Ondansetron Injection (Zofran Injectio (06/03/17 20:00) Fentanyl Injection (Sublimaze Injection (06/03/17 19:48) Pantoprazole Injection (Protonix Injecti (06/03/17 20:00) Glucagon Emergency Kit (Glucagon Emergen (06/03/17 20:00) Ct Chest Wo (06/03/17 20:02) O2 (06/03/17 20:16) Alcohol (06/03/17 20:23) Ua Culture If Indicated (06/03/17 20:23) Albuterol/Ipra Inhalation Soln (Duoneb I (06/03/17 21:00) Rt Request For Service (Other) (06/03/17 20:56) Svn Small Volume Nebulizer (06/03/17 20:56) Vital Signs/I&O 06/03/17 06/03/17 06/03/17 06/03/17 20:10 21:12 21:24 21:35 Temp 99.1 Pulse 106 108 Resp 21 20 B/P (MAP) 109/74 125/65 (85) Pulse Ox 92 94 97 98 O2 Delivery Nasal Cannula OxyMask OxyMask OxyMask O2 Flow Rate 2.00 5.00 3.00 5.00 Blood Pressure Mean: 86 Progress Note : Progress Note ON RETURN FROM XRAY, PT HAD SOME SHORTNESS OF BREATH, O2 SATS DROPPED INTO 80'S , UP TO MID 90'S ON O2 RT GAVE NEB TREATMENT WITH IMPROVEMENT, AND PT REFUSED ANY SUCTION ATTEMPTS. Comments CXR--EMPHYSEMATOUS CHANGES, NO ACUTE PROCESS CT NECK SOFT TISSUES--PROMINENT FOOD BOLUS IN CERVICAL PORTION OF ESOPHAGUS AT C6 LEVEL. NO AIRWAY COMPROMISE CT CHEST--FOOD BOLUS IN CERVICAL PORTION OF ESOPHAGUS, EMPHYSEMATOUS CHANGES OF LUNGS, WITH MULTIPLE GROUND-GLASS AREAS--FAVOR INFLAMMATION/INFECTION, NO AIRWAY COMPROMISE, NO SUB Q AIR ALL PER RADIOLOGIST REPORTS Reviewed: Reviewed by Me Departure Communication (Admissions) 1942--SPOKE WITH DR. COUCH, HE ADVISES TO ADMIT PT TO THE FLOOR, LAY FLAT AT ALL TIMES, GIVEN ATIVAN 1 MG Q 6 HOURS, PAIN MEDICATION, GLUCAGON, SUCTION AT BEDSIDE. IV FLUIDS, NPO AND HE WILL SEE TOMORROW. Impression Primary Impression: Esophageal obstruction due to food impaction Additional Impressions: Alcoholism COPD (chronic obstructive pulmonary disease) Disposition: ADMITTED INPATIENT Condition: Stable Admissions Decision to Admit Reason: Admit from ER (General) Decision to Admit/Date: Jun 03, 2017 Time/Decision to Admit Time: 19:45 Departure-Patient Inst. Referrals: [facility] (PCP) Primary Care Physician RIC LI MD (Family) Primary Care Physician JUAN ANTONIO JOEL DO Jun 03, 2017 19:44
[2017-06-03] MEDS ORDERED: LACTATED RINGERS 1,000 ML IV ONE (19:48)
[2017-06-03] MEDS ORDERED: fentaNYL INJECTION 100 MCG/2 ML AMP IVP STA (19:48)
[2017-06-03] MEDS ORDERED: PANTOPRAZOLE 40 MG/10 ML (PROTONIX) VIAL IV ONE (20:00)
[2017-06-03] MEDS ORDERED: ONDANSETRON 4 MG/2 ML (SDV) Z0FRAN IVP ONE (20:00)
[2017-06-03] MEDS ORDERED: GLUCAGON EMERGENCY 1 MG/KIT IV ONE (20:00)
[2017-06-03 20:25] LABS: BASOPHILS % (AUTO) 0 % (0-10); EOSINOPHILS % (AUTO) 0 % (0-10); HEMATOCRIT 49 % (40-54); HEMOGLOBIN 17.1 G/DL (13.3-17.7); LYMPHOCYTES # (AUTO) 1.5 X 10^3 (1.0-4.0); LYMPHOCYTES % (AUTO) 12 % (12-44); MEAN CORPUSCULAR HEMOGLOBIN 36 PG (25-34); MEAN CORPUSCULAR HGB CONC 35 G/DL (32-36); MEAN CORPUSCULAR VOLUME 102 FL (80-99); MEAN PLATELET VOLUME 9.5 FL (7.4-10.4); MONOCYTES # (AUTO) 1.2 X 10^3 (0.0-1.0); MONOCYTES % (AUTO) 9 % (0-12); NEUTROPHILS # (AUTO) 9.6 X 10^3 (1.8-7.8); NEUTROPHILS % (AUTO) 78 % (42-75); PLATELET COUNT 247 10^3/uL (130-400); RED BLOOD COUNT 4.78 10^6/uL (4.35-5.85); RED CELL DISTRIBUTION WIDTH 12.7 % (10.0-14.5); WHITE BLOOD COUNT 12.3 10^3/uL (4.3-11.0)
--- OUTSIDE RECORDS SUMMARY | 2017-06-03 20:30 | XMS REPORT ---
Author Author RIC LI Organization [facility] Address [address] [place] [address] Care Team Providers Care Steel Estimator Name Role Phone RIC LI Unavailable PROBLEMS Type Condition ICD9-CM Code UIZ50-BS Code Onset Dates Condition Status SNOMED Code Problem Acute exacerbation of chronic obstructive pulmonary disease (COPD) J44.1 Active 916305516 Problem Chronic deep vein thrombosis (DVT) of popliteal vein of both lower extremities I82.533 Active 440338495988918 Problem Acute deep vein thrombosis (DVT) of proximal vein of left lower extremity I82.4Y2 Active 974522281145 Problem Pulmonary emphysema, unspecified emphysema type J43.9 Active 52096424 Problem Age related osteoporosis M81.0 Active [id number] ALLERGIES No Information ENCOUNTERS Encounter Location Date Diagnosis [facility] IN [facility] [id number] [place] [phone] Nov, Acute exacerbation of chronic obstructive pulmonary disease (COPD) J44.1 [facility] [id number] [place] [phone] Nov, Pulmonary emphysema, unspecified emphysema type J43.9 [facility] [id number] [place] [phone] Oct, Acute deep vein thrombosis (DVT) of proximal vein of left lower extremity I82.4Y2 [facility] [id number] [place] [phone] Sep, Pulmonary emphysema, unspecified emphysema type J43.9 [facility] [id number] [place] [phone] Jul, [facility] [id number] [place] [phone] June, Pulmonary emphysema, unspecified emphysema type J43.9 and Encounter for immunization Z23 [place] [address] [place] [address] Apr, [place] [address] [place] [address] Feb, [place] [id number] [place] [phone] Dec, Pulmonary emphysema, unspecified emphysema type J43.9 and Chronic deep vein thrombosis (DVT) of popliteal vein of both lower extremities I82.533 [place] [address] [place] [phone] Nov, Chronic lung disease J98.4 ; Acute deep vein thrombosis (DVT ) of both lower extremities, unspecified vein I82.403 ; Tobacco use Z72.0 and Encounter for immunization [place]23 [place] [id number] [place] [phone] Nov, [place] [id number] [place] [address] Nov, Acute deep vein thrombosis (DVT) of proximal vein of left lower extremity I82.4Y2 [place] [address] [place] [address] Nov, IMMUNIZATIONS No Known Immunizations SOCIAL HISTORY Never Assessed REASON FOR VISIT Medication refill request PLAN OF CARE VITAL SIGNS MEDICATIONS Medication Instructions Dosage Frequency Start Date End Date Duration Status Combivent Respimat 20-100 MCG/ACT Inhalation Four times a day 1 puff 6h June, Active Advair Diskus 100-50 MCG/DOSE Inhalation Twice a day 1 puff 12h Active RESULTS No Results PROCEDURES No Known procedures INSTRUCTIONS MEDICATIONS ADMINISTERED No Known Medications MEDICAL (GENERAL) HISTORY Type Description Date Medical History 2015 blood clot Medical History emphysema Surgical History thoracoscopy Surgical History osteomyelitis right leg x 4 Hospitalization History pneumonia Hospitalization History blood clots x5 Hospitalization History broken ribs, clavicle, scapula and collapsed left lung.
--- OUTSIDE RECORDS SUMMARY | 2017-06-03 20:30 | XMS REPORT ---
Author Author RIC LI Organization [facility] Address [address] [place] [address] Care Team Providers Care Health Professor Name Role Phone RIC LI Unavailable PROBLEMS Type Condition ICD9-CM Code [id number] Code Onset Dates Condition Status SNOMED Code Problem Acute exacerbation of chronic obstructive pulmonary disease (COPD) J44.1 Active 945753599 Problem Chronic deep vein thrombosis (DVT) of popliteal vein of both lower extremities I82.533 Active 363473815860245 Problem Acute deep vein thrombosis (DVT) of proximal vein of left lower extremity I82.4Y2 Active 600364926137 Problem Pulmonary emphysema, unspecified emphysema type J43.9 Active 10366125 Problem Age related osteoporosis M81.0 Active 779576135 ALLERGIES No Information ENCOUNTERS Encounter Location Date Diagnosis [facility] WALK IN [facility] [id number] [place] [phone] Nov, Acute exacerbation of chronic obstructive pulmonary disease (COPD) J44.1 [facility] [address] [place] [address] Nov, Pulmonary emphysema, unspecified emphysema type J43.9 [facility] [address] [place] [address] Oct, Acute deep vein thrombosis (DVT) of proximal vein of left lower extremity I82.4Y2 [facility] [address] [place] [address] Sep, Pulmonary emphysema, unspecified emphysema type J43.9 [facility] [id number] [place] [address] Jul, [facility] [id number] [place] [address] June, Pulmonary emphysema, unspecified emphysema type J43.9 and Encounter for immunization Z23 [facility] [address] [address] Apr, [facility] [address] [address] Feb, [place] [address] [place] [address] Dec, Pulmonary emphysema, unspecified emphysema type J43.9 and Chronic deep vein thrombosis (DVT) of popliteal vein of both lower extremities I82.533 [place] [address] [place] [address] Nov, Chronic lung disease J98.4 ; Acute deep vein thrombosis (DVT ) of both lower extremities, unspecified vein I82.403 ; Tobacco use Z72.0 and Encounter for immunization Z23 [place] [address] [place] [address] Nov, [place] [address] [place] [address] Nov, Acute deep vein thrombosis (DVT) of proximal vein of left lower extremity I82.4Y2 [place] [address] [address] Nov, IMMUNIZATIONS No Known Immunizations SOCIAL HISTORY Never Assessed REASON FOR VISIT PALS-Eliquis PLAN OF CARE VITAL SIGNS MEDICATIONS No Known Medications RESULTS No Results PROCEDURES No Known procedures INSTRUCTIONS MEDICATIONS ADMINISTERED No Known Medications MEDICAL (GENERAL) HISTORY Type Description Date Medical History 2016 blood clot Medical History emphysema Surgical History thoracoscopy Surgical History osteomyelitis right leg x 4 Hospitalization History pneumonia Hospitalization History blood clots x5 Hospitalization History broken ribs, clavicle, scapula and collapsed left lung.
[2017-06-03 20:31] LABS: INR 0.9 (0.8-1.4); PROTHROMBIN TIME PATIENT 12.6 SEC (12.2-14.7)
[2017-06-03 20:40] LABS: ALANINE AMINOTRANSFERASE 18 U/L (0-55); ALBUMIN 4.6 GM/DL (3.2-4.5); ALKALINE PHOSPHATASE 71 U/L (40-136); BILIRUBIN,TOTAL 1.7 MG/DL (0.1-1.0); BUN/CREATININE RATIO 17; CALCIUM 9.6 MG/DL (8.5-10.1); CARBON DIOXIDE 26 MMOL/L (21-32); CHLORIDE 105 MMOL/L (98-107); CREATININE SERUM 0.84 MG/DL (0.60-1.30); GFR ESTIMATED > 60; GLUCOSE 82 MG/DL (70-105); POTASSIUM 3.8 MMOL/L (3.6-5.0); SODIUM 146 MMOL/L (135-145); TOTAL PROTEIN 7.2 GM/DL (6.4-8.2)
--- NOTE | 2017-06-03 20:44 | Diagnostic Imaging Report ---
PROCEDURE: CT neck soft tissue without contrast. TECHNIQUE: Multiple contiguous axial images were obtained through the neck without the use of intravenous contrast. INDICATION: Food stuck in esophagus. COMPARISON: None FINDINGS: Evaluation of the soft tissues of the neck demonstrates focal prominence of bolus within the cervical esophagus at approximately the C6 level. The bolus measures approximately 2.2 x 2.2 cm in diameter by approximately 2.7 cm in CC dimension. Evaluation for underlying obstructive esophageal lesion is not possible. Adjacent airway has a normal appearance. There is no evidence of compromise of the airway. No soft tissue masses are seen on this noncontrast exam. There is no focal fluid collection. No unexpected radiopaque foreign bodies or soft tissue emphysema is seen. The bilateral thyroid lobes, parotid glands, and submandibular glands have a normal CT appearance. There is no evidence of significant cervical adenopathy. Included portions of the intracranial structures are unremarkable. Paranasal sinuses show small mucosal retention cyst versus polyps in the left maxillary sinus. Mastoid air cells are clear. No acute osseous abnormalities are seen. Included portions of the lung apices show emphysematous change with scarring in the right apex. IMPRESSION: 1. Prominent food bolus within the cervical portion of the esophagus as described above. Evaluation for underlying obstructive esophageal lesion is not possible. Correlation with esophagram may be of benefit. 2. No evidence of compromise of the airway. Dictated by: Dictated on workstation # [id number]
[2017-06-03] MEDS ORDERED: RT-ALBUTEROL/IPRATROPIUM 3 ML (DUONEB) VIAL INH ONE (21:00)
--- NOTE | 2017-06-03 21:00 | Diagnostic Imaging Report ---
PROCEDURE: CT chest without contrast. TECHNIQUE: Multiple contiguous axial images were obtained through the chest without the use of intravenous contrast. INDICATION: Choking incident. COMPARISON: CT neck from earlier the same day. FINDINGS: Again identified is prominent bolus within the lower cervical portions of the esophagus. The esophagus cannot be adequately evaluated for underlying obstructive lesion. Cardiomediastinal structures show normal heart size. There is no large pericardial effusion. No pathologically enlarged or morphologically abnormal adenopathy is seen within the mediastinum, cabrera or axilla on this noncontrast exam. Lung windows show moderate air trapping consistent with emphysematous disease, bilaterally. Groundglass nodular densities are identified, bilaterally. Within the left upper lobe, there is a 1.4 x 1.1 cm groundglass nodular density. At the same level in the right upper lobe, there is a 1.5 x 1.5 cm groundglass nodular density. Groundglass nodular density is also seen within the superior segment of the left lower lobe and measures 1.9 x 0.8 cm (image 42, series 2). Similar-appearing hazy groundglass density is also present within the right lower lobe and measures 1.1 x 0.9 cm (image 41, series 2). These all appear to be new when compared to recent prior exam dated 03/23/2017. There is no large effusion or pneumothorax on either side. Bony structures show no acute abnormality. Included portions of the upper abdomen are unremarkable. IMPRESSION: 1. Redemonstration of focal bolus of food stuff within the lower cervical esophagus. Exam is suboptimal to evaluate for underlying obstructive esophageal lesion. 2. Scattered areas of nodular groundglass density within the bilateral lungs, as described above. Given that these are new when compared to recent prior exam dated 03/23/2017, they likely represent nonspecific areas of infection or inflammation. Neoplasm is felt to be much less likely. Followup could be performed to ensure adequate interval resolution. 3. Background of COPD. Dictated by: Dictated on workstation # [id number]
--- NOTE | 2017-06-03 21:17 | Diagnostic Imaging Report ---
INDICATION: Food stuck in esophagus COMPARISON: 08/18/2015 FINDINGS: Frontal and lateral views of the chest demonstrate normal heart size and pulmonary vascularity. The lungs are significantly hyperinflated, but are otherwise clear. There are no signs of infiltrate, pleural effusions or pneumothoraces. The visualized osseous structures show no acute abnormalities. IMPRESSION: 1. No acute process. No signs of infiltrates, effusions or pneumothoraces. 2. Significant hyperinflated appearance to the lungs suggestive of underlying COPD. Dictated by: Dictated on workstation # [id number]
[2017-06-03 21:35] VITALS: BP 125/65
== END 2017-06-03 22:25 | disposition left against medical advice (07) ==
LOC: EDUNIT# 18:50 → ER 18:52 → 4TH 19:45 → UNDOADMOB 19:45 → 4TH 21:35 → UNDODISOB 22:12
PROVIDERS: ADMIT Surgery; ATTEND Surgery
DX: K22.2 Esophageal obstruction (principal); F10.20 Alcohol dependence, uncomplicated; J44.9 Chronic obstructive pulmonary disease, unspecified; Z86.718 Personal history of other venous thrombosis and embolism; Z91.19 Patient's noncompliance with other medical treatment and regimen
CPT/HCPCS: 36415; 70490; 71046; 71250; 80053; 80320; 85025; 85610; 85730; 93041; 94640

== ENCOUNTER 2018-08-05 01:35 | Inpatient (IN) | payer SELFPAY ==
[~2018-08-05] VITALS: Ht 162.6 cm; Wt 45.4 kg
[~2018-08-05 01:35] MED LIST changes: -RIVA15TA PO; +RIVA15TA2 PO
--- OUTSIDE RECORDS SUMMARY | 2018-08-05 01:45 | XMS REPORT ---
Author Author RIC LI Organization [facility] Address [address] [place] [address] Care Team Providers Care Metal Casting Trades Worker Name Role Phone RIC LI Unavailable PROBLEMS Type Condition ICD9-CM Code [id number] Code Onset Dates Condition Status SNOMED Code Problem Acute exacerbation of chronic obstructive pulmonary disease (COPD) J44.1 Active 814432598 Problem Chronic deep vein thrombosis (DVT) of popliteal vein of both lower extremities I82.533 Active 557043190886159 Problem Acute deep vein thrombosis (DVT) of proximal vein of left lower extremity I82.4Y2 Active 290262351689 Problem Pulmonary emphysema, unspecified emphysema type J43.9 Active 82880576 Problem Age related osteoporosis M81.0 Active 108965615 ALLERGIES No Information ENCOUNTERS Encounter Location Date Diagnosis [facility] IN [facility] [id number] [place] [phone] Nov, Acute exacerbation of chronic obstructive pulmonary disease (COPD) J44.1 [facility] [address] [place] [address] Nov, Pulmonary emphysema, unspecified emphysema type J43.9 [facility] [address] [place] [address] Oct, Acute deep vein thrombosis (DVT) of proximal vein of left lower extremity I82.4Y2 [facility] [address] [place] [address] Sep, Pulmonary emphysema, unspecified emphysema type J43.9 [facility] [id number] [place] [address] Jul, [facility] [id number] [place] [address] June, Pulmonary emphysema, unspecified emphysema type J43.9 and Encounter for immunization Z23 [place] [address] [address] Apr, [place] [address] [address] Feb, [place] [address] [place] [address] Dec, Pulmonary emphysema, unspecified emphysema type J43.9 and Chronic deep vein thrombosis (DVT) of popliteal vein of both lower extremities I82.533 [place] [address] [place] [address] Nov, Chronic lung disease J98.4 ; Acute deep vein thrombosis (DVT) of both lower extremities, unspecified vein I82.403 ; Tobacco use Z72.0 and Encounter for immunization Z23 [place] [address] [place] [address] Nov, [place] [address], [place] [address] Nov, Acute deep vein thrombosis (DVT) of proximal vein of left lower extremity I82.4Y2 [place] [address], [place] [address] Nov, IMMUNIZATIONS No Known Immunizations SOCIAL HISTORY Never Assessed REASON FOR VISIT Refill requests PLAN OF CARE VITAL SIGNS MEDICATIONS Medication Instructions Dosage Frequency Start Date End Date Duration Status Advair Diskus 100-50 MCG/DOSE Inhalation Twice a day 1 puff 12h Active Combivent Respimat 20-100 MCG/ACT Inhalation Four times a day 1 puff 6h June, Active RESULTS No Results PROCEDURES No Known procedures INSTRUCTIONS MEDICATIONS ADMINISTERED No Known Medications MEDICAL (GENERAL) HISTORY Type Description Date Medical History 2015 blood clot Medical History emphysema Surgical History thoracoscopy Surgical History osteomyelitis right leg x 4 Hospitalization History pneumonia Hospitalization History blood clots x5 Hospitalization History broken ribs, clavicle, scapula and collapsed left lung.
--- OUTSIDE RECORDS SUMMARY | 2018-08-05 01:45 | XMS REPORT ---
Author Author RIC LI Organization [facility] Address [address] [place] [address] Care Team Providers Care Litigation Partner Name Role Phone RIC LI Unavailable PROBLEMS Type Condition ICD9-CM Code [id number] Code Onset Dates Condition Status SNOMED Code Problem Acute exacerbation of chronic obstructive pulmonary disease (COPD) J44.1 Active 922743017 Problem Chronic deep vein thrombosis (DVT) of popliteal vein of both lower extremities I82.533 Active 503148141278026 Problem Acute deep vein thrombosis (DVT) of proximal vein of left lower extremity I82.4Y2 Active 679167939204 Problem Pulmonary emphysema, unspecified emphysema type J43.9 Active 44514690 Problem Age related osteoporosis M81.0 Active 049149199 ALLERGIES No Information ENCOUNTERS Encounter Location Date Diagnosis [facility] WALK IN [facility] [id number] [place] [phone] Nov, Acute exacerbation of chronic obstructive pulmonary disease (COPD) J44.1 [facility] [address] [place] [address] Nov, Pulmonary emphysema, unspecified emphysema type J43.9 [facility] [address] [place] [address] Oct, Acute deep vein thrombosis (DVT) of proximal vein of left lower extremity I82.4Y2 [facility] [address] [place] [address] Sep, Pulmonary emphysema, unspecified emphysema type J43.9 [facility] [id number] [place] [phone] Jul, [facility] [id number] [place] [address] June, Pulmonary emphysema, unspecified emphysema type J43.9 and Encounter for immunization Z23 [facility] [address], [place] [address] Apr, [place] [address] [place] [address] Feb, [place] [address] [place] [address] Dec, Pulmonary emphysema, unspecified emphysema type J43.9 and Chronic deep vein thrombosis (DVT) of popliteal vein of both lower extremities I82.533 [place] [address] [place] [address] Nov, Chronic lung disease J98.4 ; Acute deep vein thrombosis (DVT) of both lower extremities, unspecified vein I82.403 ; Tobacco use Z72.0 and Encounter for immunization Z23 [place] [address] [place] [address] Nov, [place] [address] [place] [address] Nov, Acute deep vein thrombosis (DVT) of proximal vein of left lower extremity I82.4Y2 [place] [address] [place] [address] Nov, IMMUNIZATIONS No Known Immunizations SOCIAL HISTORY Never Assessed REASON FOR VISIT PALS PLAN OF CARE VITAL SIGNS MEDICATIONS Medication Instructions Dosage Frequency Start Date End Date Duration Status Eliquis 5 mg Orally 2 times a day 1 tablet 12h Nov, Active RESULTS No Results PROCEDURES No Known procedures INSTRUCTIONS MEDICATIONS ADMINISTERED No Known Medications MEDICAL (GENERAL) HISTORY Type Description Date Medical History 2016 blood clot Medical History emphysema Surgical History thoracoscopy Surgical History osteomyelitis right leg x 4 Hospitalization History pneumonia Hospitalization History blood clots x5 Hospitalization History broken ribs, clavicle, scapula and collapsed left lung.
--- OUTSIDE RECORDS SUMMARY | 2018-08-05 01:45 | XMS REPORT ---
Author Author MARGY Stroud [facility] Address [address] [place] [address] Care Team Providers Care Application Security Engineer Name Role Phone [email or web address] MARGY Unavailable PROBLEMS Type Condition ICD9-CM Code OLI42-BX Code Onset Dates Condition Status SNOMED Code Problem Acute exacerbation of chronic obstructive pulmonary disease (COPD) J44.1 Active 271852312 Problem Chronic deep vein thrombosis (DVT) of popliteal vein of both lower extremities I82.533 Active 849682180633006 Problem Acute deep vein thrombosis (DVT) of proximal vein of left lower extremity I82.4Y2 Active 971647874837 Problem Pulmonary emphysema, unspecified emphysema type J43.9 Active 89718750 Problem Age related osteoporosis M81.0 Active 644087091 ALLERGIES No Known Allergies ENCOUNTERS Encounter Location Date Diagnosis [facility] [id number] [place] [address] Nov, Acute exacerbation of chronic obstructive pulmonary disease (COPD) J44.1 [facility] [id number] [place] [address] Nov, Pulmonary emphysema, unspecified emphysema type J43.9 [facility] [id number] [place] [address] Oct, Acute deep vein thrombosis (DVT) of proximal vein of left lower extremity I82.4Y2 [facility] [id number] [place] [phone] Sep, Pulmonary emphysema, unspecified emphysema type J43.9 [facility] [id number] [place] [address] Jul, [facility] [address] [address] June, Pulmonary emphysema, unspecified emphysema type J43.9 and Encounter for immunization Z23 [place] [address] [address] Apr, [place] [address] [place] [address] Feb, [place] [id number] [place] [address] Dec, Pulmonary emphysema, unspecified emphysema type J43.9 and Chronic deep vein thrombosis (DVT) of popliteal vein of both lower extremities I82.533 [place] [id number] [place] [address] Nov, Chronic lung disease J98.4 ; Acute deep vein thrombosis (DVT) of both lower extremities, unspecified vein I82.403 ; Tobacco use Z72.0 and Encounter for immunization Z23 [place] [id number] [place] [address] Nov, [place] [address] [place] [address] Nov, Acute deep vein thrombosis (DVT) of proximal vein of left lower extremity I82.4Y2 [place] [address] [place] [address] Nov, IMMUNIZATIONS No Known Immunizations SOCIAL HISTORY Never Assessed REASON FOR VISIT Shortness of breath. States he thinks his COPD is flairing up and his inhalers a anupam't helping. EDDIE Mckeon. PLAN OF CARE Activity Details Follow Up prn Reason: VITAL SIGNS Height 67 in 2016-12-01 Weight 107.8 lbs 2016-12-01 Temperature 97.8 degrees Fahrenheit 2016-12-01 Heart Rate 86 bpm 2016-12-01 Respiratory Rate 18 2016-12-01 Oximetry 98 % 2016-12-01 BMI 16.88 kg/m2 2016-12-01 Blood pressure systolic 96 mmHg 2016-12-01 Blood pressure diastolic 58 mmHg 2016-12-01 MEDICATIONS Medication Instructions Dosage Frequency Start Date End Date Duration Status Combivent Active PredniSONE 20 MG Orally Once a day 2 tablet 24h Nov, Nov, 5 days Active Doxycycline Monohydrate 100 MG Orally every 12 hrs 1 capsule 12h Nov, Nov, 7 days Active Combivent Respimat 20-100 MCG/ACT Inhalation Four times a day 1 puff 6h June, Active Nebulizer - as directed Nov, Active Albuterol Sulfate (2.5 MG/3ML) 0.083% Inhalation every 6 hrs as directed 6h Nov, 30 days Active Eliquis 5 mg Orally 2 times a day 1 tablet 12h 05 Nov, 2015 Active Advair Diskus 100-50 MCG/DOSE Inhalation Twice a day 1 puff 12h Active RESULTS Name Result Date Reference Range Xray : Chest (IN HOUSE) 2016-12-01 PROCEDURES Procedure Date Ordered Result Body Site MEASURE BLOOD OXYGEN LEVEL Dec 01, 2016 CHEST X-RAY Dec 01, 2016 INSTRUCTIONS MEDICATIONS ADMINISTERED No Known Medications MEDICAL (GENERAL) HISTORY Type Description Date Medical History 2016 blood clot Medical History emphysema Surgical History thoracoscopy Surgical History osteomyelitis right leg x 4 Hospitalization History pneumonia Hospitalization History blood clots x5 Hospitalization History broken ribs, clavicle, scapula and collapsed left lung.
[2018-08-05] MEDS ORDERED: RT-ALBUTEROL/IPRATROPIUM 3 ML (DUONEB) VIAL ONE ×2 (01:50→10:46)
[2018-08-05] MEDS ORDERED: RT-ALBUTEROL SULF 2.5 MG/3 ML PRE-MIX VIAL ONE (01:50)
[2018-08-05] MEDS ORDERED: RT-ALBUTEROL SULF 2.5 MG/3 ML PRE-MIX VIAL INH STA ×3 (01:53→04:03)
[2018-08-05] MEDS ORDERED: NS IV 500 ML 500 ML IV ONE (01:54)
[2018-08-05] MEDS ORDERED: RT-IPRATROPIUM (ATROVENT) 0.5MG/2.5ML AMP IH ONE ×2 (02:00→04:15)
[2018-08-05 02:02] LABS: BASOPHILS % (AUTO) 0 % (0-10); EOSINOPHILS % (AUTO) 0 % (0-10); HEMATOCRIT 47 % (40-54); HEMOGLOBIN 16.3 G/DL (13.3-17.7); LYMPHOCYTES # (AUTO) 1.6 X 10^3 (1.0-4.0); LYMPHOCYTES % (AUTO) 17 % (12-44); MEAN CORPUSCULAR HEMOGLOBIN 36 PG (25-34); MEAN CORPUSCULAR HGB CONC 35 G/DL (32-36); MEAN CORPUSCULAR VOLUME 102 FL (80-99); MEAN PLATELET VOLUME 9.1 FL (7.4-10.4); MONOCYTES # (AUTO) 0.7 X 10^3 (0.0-1.0); MONOCYTES % (AUTO) 7 % (0-12); NEUTROPHILS # (AUTO) 7.5 X 10^3 (1.8-7.8); NEUTROPHILS % (AUTO) 76 % (42-75); PLATELET COUNT 176 10^3/uL (130-400); RED CELL DISTRIBUTION WIDTH 14.4 % (10.0-14.5); WHITE BLOOD COUNT 9.8 10^3/uL (4.3-11.0)
[2018-08-05 02:15] LABS: ALANINE AMINOTRANSFERASE 24 U/L (0-55); ALBUMIN 4.3 GM/DL (3.2-4.5); ALKALINE PHOSPHATASE 77 U/L (40-136); BILIRUBIN,TOTAL 0.7 MG/DL (0.1-1.0); BUN/CREATININE RATIO 12; CALCIUM 8.6 MG/DL (8.5-10.1); CARBON DIOXIDE 23 MMOL/L (21-32); CHLORIDE 104 MMOL/L (98-107); CREATININE SERUM 0.76 MG/DL (0.60-1.30); GFR ESTIMATED > 60; GLUCOSE 81 MG/DL (70-105); MAGNESIUM 1.7 MG/DL (1.8-2.4); POTASSIUM 3.7 MMOL/L (3.6-5.0); SODIUM 145 MMOL/L (135-145); TOTAL PROTEIN 6.9 GM/DL (6.4-8.2)
[2018-08-05] MEDS ORDERED: methylPREDNISolone 125 MG (Solu-MEDROL) VIAL IV STA (03:00)
--- NOTE | 2018-08-05 03:20 | ED General ---
General Chief Complaint: General Problems/Pain Stated Complaint: SEVERE PAIN IN RT SIDE Nursing Triage Note: Patient advises that he has not been feeling well. He advises that he has not been feeling well and has not been eating. Nursing Sepsis Screen: No Definite Risk Source of Information: Patient, EMS Exam Limitations: No Limitations (MARLYN LOCO MEDICAL STUDENT) History of Present Illness Date Seen by Provider: Aug 05, 2018 Time Seen by Provider: 01:54 Initial Comments Pt presents to ED by EMS complaining that he just doesn't feel right. He notes that he feels weak and frustrated. He states that he does not eat anything, but drinks three mixed alcoholic drinks per day. Pt admits to SOA and denies chest pain and fever. Denies N/V/D or urinary issues. He notes that he has seen Dr. Castro and Dr. Sutherland once before but does not have health insurance for a regular primary care doctor. Timing/Duration: 1-2 Days Severity: Moderate Associated Systoms: Malaise (MARLYN LOCO MEDICAL STUDENT) Initial Comments Here with her for any complaints including fatigue and feeling like he is given a diet if he goes to sleep. He has been unable to sleep due to that. EMS called because it overwhelmed him tonight. Does not normally wear oxygen but was noted to be hypoxic on arrival. This did improve with oxygen. Associated Systoms: Cough; No Fever/Chills, No Nausea/Vomiting; Shortness of Air, Weakness (TRUDY STERLING MD) Allergies and Home Medications Allergies Coded Allergies: No Known Drug Allergies (Unverified , 08/05/18) Home Medications Rivaroxaban 15 Mg Tablet, 15 MG PO BID Prescribed by: MEE AGUILAR on 11/15/151921 Patient Home Medication List Home Medication List Reviewed: Yes (MARLYN LOCO STUDENT) Home Medication List Reviewed: Yes (TRUDY STERLING MD) Review of Systems Review of Systems Constitutional: malaise EENTM: no symptoms reported Respiratory: cough, short of breath Cardiovascular: no symptoms reported Gastrointestinal: no symptoms reported Genitourinary: no symptoms reported Musculoskeletal: no symptoms reported Skin: no symptoms reported Psychiatric/Neurological: No Symptoms Reported Hematologic/Lymphatic: No Symptoms Reported Immunological/Allergic: no symptoms reported (MARLYN LOCO STUDENT) Constitutional: No chills, No fever Cardiovascular: No chest pain, No edema Gastrointestinal: No nausea, No vomiting Musculoskeletal: No back pain, No muscle pain Psychiatric/Neurological: See HPI, Weakness (TRUDY STERLING MD) All Other Systems Reviewed Negative Unless Noted: Yes (TRUDY STERLING MD) Past Bhgggcv-Txwfqx-Dtrdae Hx Past Med/Social Hx: Reviewed Nursing Past Med/Soc Hx (TRUDY STERLING MD) Patient Social History Alcohol Use: Regular Use (three mixed drinks each day) Number of Drinks Today: FF Alcohol Beverage of Choice: Beer, Vodka Recreational Drug Use: No Smoking Status: Current Everyday Smoker (2-3 ppd) Type Used: Cigarettes Recent Foreign Travel: No Contact w/Someone Who Travel: No Recent Infectious Disease Expo: No Recent Hopitalizations: No (MARLYN LOCO MEDICAL STUDENT) Immunizations Up To Date Tetanus Booster (TDap): Unknown Date of Pneumonia Vaccine: Sep 07, 2011 Date of Influenza Vaccine: Oct 22, 2016 (MARLYN LOCO MEDICAL STUDENT) Seasonal Allergies Seasonal Allergies: No (MARLYN LOCO STUDENT) Past Medical History Surgeries: Yes Orthopedic Respiratory: Yes Asthma, COPD, Emphysema Currently Using CPAP: No Currently Using BIPAP: No Cardiac: Yes (HYPOTENSION; MULTIPLE DVT'S =--NON COMPLIANT WITH ANTICOAGULANTS) Deep Vein Thrombosis Neurological: No Reproductive Disorders: No Genitourinary: No Gastrointestinal: Yes Gastroesophageal Reflux, Wallis's Esophagus, Polyps, Ulcer Musculoskeletal: Yes Osteoporosis, Arthritis, Back Injury, Chronic Back Pain, Fractures Endocrine: No HEENT: No Cancer: No Psychosocial: Yes Anxiety, PTSD, Bipolar, Personality Disorder, Depression Integumentary: No Blood Disorders: Yes (MULTIPLE DVT'S ) Adverse Reaction/Blood Tranf: No (MARLYN LOCO STUDENT) Family Medical History Asthma 19 MOTHER Cardiovascular disease G8 SISTER (blood clots) Colon cancer 19 MOTHER (polyps/hiatal hernia) Congenital disease 19 MOTHER (nuerogenic syncope) Neoplasm No Pertinent Family Hx (MARLYN LOCO STUDENT) Physical Exam Vital Signs Vital Signs - First Documented 08/05/18 01:49 Temp 96.1 Pulse 93 Resp 14 B/P (MAP) 112/74 (87) Pulse Ox 97 O2 Delivery Nasal Cannula O2 Flow Rate 2.00 (TRUDY STERLING MD) Vital Signs Capillary Refill : Less Than 3 Seconds (MARLYN LOCO STUDENT) Height, Weight, BMI Height: 5'4.00" Weight: 115lbs. 0.0oz. 52.269259go; 22.2 BMI Method:Estimated General Appearance: No Apparent Distress, Cachetic Eyes: Bilateral Eye PERRL, Bilateral Eye EOMI HEENT: TMs Normal, Pharynx Normal Neck: Non Tender, Limited Range of Motion Respiratory: Chest Non Tender, Decreased Breath Sounds, Respiratory Distress Cardiovascular: Regular Rate, Rhythm, No Murmur, Normal Peripheral Pulses Gastrointestinal: Normal Bowel Sounds, Non Tender Back: No Vertebral Tenderness, Decreased Range of Motion Extremity: Normal Capillary Refill, No Pedal Edema Neurologic/Psychiatric: Alert, Oriented x3 Skin: Normal Color, Warm/Dry (MARLYN LOCO MEDICAL STUDENT) General Appearance: No Apparent Distress, Thin HEENT: PERRL/EOMI, TMs Normal, Pharynx Normal Neck: Non Tender, Limited Range of Motion (kyphosis) Respiratory: Chest Non Tender, Decreased Breath Sounds Cardiovascular: No Murmur, Tachycardia Gastrointestinal: Non Tender, Soft Back: No CVA Tenderness, No Vertebral Tenderness Extremity: Normal Range of Motion, Non Tender Neurologic/Psychiatric: Alert, Oriented x3 (TRUDY STERLING MD) Progress/Results/Core Measures Suspected Sepsis Recent Fever Within 48 Hours: No Infection Criteria Present: None New/Unexplained Altered Menta: No Sepsis Screen: No Definite Risk SIRS Temperature:96.1 Pulse: 93 Respiratory Rate: 14 Laboratory Tests 08/05/18 01:40: White Blood Count 9.8 Blood Pressure 112 /74 Mean: 87 Laboratory Tests 08/05/18 01:40: Creatinine 0.76, Platelet Count 176, Total Bilirubin 0.7 (MARLYN LOCO MEDICAL STUDENT) Results/Orders Lab Results Laboratory Tests Test 08/05/18 01:40 Range/Units White Blood Count 9.8 4.3-11.0 10^3/uL Red Blood Count 4.54 4.35-5.85 10^6/uL Hemoglobin 16.3 13.3-17.7 G/DL Hematocrit 47 40-54 % Mean Corpuscular Volume 102 H 80-99 FL Mean Corpuscular Hemoglobin 36 H 25-34 PG Mean Corpuscular Hemoglobin Concent 35 32-36 G/DL Red Cell Distribution Width 14.4 10.0-14.5 % Platelet Count 176 130-400 10^3/uL Mean Platelet Volume 9.1 7.4-10.4 FL Neutrophils (%) (Auto) 76 H 42-75 % Lymphocytes (%) (Auto) 17 12-44 % Monocytes (%) (Auto) 7 0-12 % Eosinophils (%) (Auto) 0 0-10 % Basophils (%) (Auto) 0 0-10 % Neutrophils # (Auto) 7.5 1.8-7.8 X 10^3 Lymphocytes # (Auto) 1.6 1.0-4.0 X 10^3 Monocytes # (Auto) 0.7 0.0-1.0 X 10^3 Eosinophils # (Auto) 0.0 0.0-0.3 10^3/uL Basophils # (Auto) 0.0 0.0-0.1 10^3/uL Sodium Level 145 135-145 MMOL/L Potassium Level 3.7 3.6-5.0 MMOL/L Chloride Level 104 98-107 MMOL/L Carbon Dioxide Level 23 21-32 MMOL/L Anion Gap 18 H 5-14 MMOL/L Blood Urea Nitrogen 9 7-18 MG/DL Creatinine 0.76 0.60-1.30 MG/DL Estimat Glomerular Filtration Rate > 60 BUN/Creatinine Ratio 12 Glucose Level 81 70-105 MG/DL Calcium Level 8.6 8.5-10.1 MG/DL Corrected Calcium 8.4 L 8.5-10.1 MG/DL Magnesium Level 1.7 L 1.8-2.4 MG/DL Total Bilirubin 0.7 0.1-1.0 MG/DL Aspartate Amino Transf (AST/SGOT) 45 H 5-34 U/L Alanine Aminotransferase (ALT/SGPT) 24 0-55 U/L Alkaline Phosphatase 77 40-136 U/L C-Reactive Protein High Sensitivity 0.16 0.00-0.50 MG/DL Total Protein 6.9 6.4-8.2 GM/DL Albumin 4.3 3.2-4.5 GM/DL (TRUDY STERLING MD) My Orders Orders - TRUDY STERLING MD Albuterol Pre-Mix Nebs (Rt) (Proventil (08/05/18 01:53) Ipratropium 0.02% Neb Solution (Atrovent (08/05/18 02:00) Svn Small Volume Nebulizer (08/05/18 01:53) Svn Small Volume Nebulizer (08/05/18 01:53) Chest 1 View, Ap/Pa Only (08/05/18 01:54) Cbc With Automated Diff (08/05/18 01:54) Comprehensive Metabolic Panel (08/05/18 01:54) Hs C Reactive Protein (08/05/18 01:54) Magnesium (08/05/18 01:54) Ed Iv/Invasive Line Start (08/05/18 01:54) Ns Iv 500 Ml (Sodium Chloride 0.9%) (08/05/18 01:54) Albuterol Pre-Mix Nebs (Rt) (Proventil (08/05/18 01:50) Albuterol/Ipra Inhalation Soln (Duoneb I (08/05/18 01:50) Albuterol Pre-Mix Nebs (Rt) (Proventil (08/05/18 02:12) Svn Small Volume Nebulizer (08/05/18 02:12) Methylprednisolone Sod Succ (Solu-Medrol (08/05/18 03:00) (TURDY STERLING MD) Medications Given in ED Current Medications Medications Dose Ordered Sig/Arabella Route Start Time Stop Time Status Last Admin Dose Admin Albuterol/ Ipratropium 3 ml STK-MED ONCE .ROUTE 08/05/18 01:50 08/05/18 01:56 DC 08/05/18 01:57 3 ML Sodium Chloride 500 ml @ 0 mls/hr Q0M ONCE IV 08/05/18 01:54 08/05/18 01:56 DC 08/05/18 02:03 0 MLS/HR (TRUDY STERLING MD) Vital Signs/I&O 08/05/18 08/05/18 08/05/18 01:49 01:58 02:15 Temp 96.1 Pulse 93 Resp 14 B/P (MAP) 112/74 (87) Pulse Ox 97 97 98 O2 Delivery Nasal Cannula Nasal Cannula Nasal Cannula O2 Flow Rate 2.00 4.00 4.00 (TRUDY STERLING MD) Vital Signs/I&O Capillary Refill : Less Than 3 Seconds (MARLYN LOCO MEDICAL STUDENT) Blood Pressure Mean: 87 Progress Note : Progress Note Seen and evaluated. IV, labs, chest x-ray, EKG and DuoNeb ordered. Repeat albuterol 3 ordered. Solu-Medrol 125 mg IV ordered. Patient placed on O2 initi ally at 5 L and decreased to 4 L. Patient not normally on oxygen but is requiring oxygen to keep sats greater than 92%. Due to persistence of symptoms and not at baseline after several treatments, we will initiate continuous hour- long treatment and admission. I did discuss the case with Dr. Castro, on-call for [facility] at [phone]. She accepts patient for admission inpatient [facility]. We will consult Dr. Sutherland in the morning. This was discussed with the patient who agrees. (TRUDY STERLING MD) ECG Initial ECG Impression Date: Aug 05, 2018 Initial ECG Impression Time: 01:41 Initial ECG Rate: 103 Initial ECG Rhythm: S.Tach Initial ECG Comparisson: Unchanged Comment Sinus tachycardia with normal but rightward axis. No evidence of ST elevation GA. Similar to previous of 03/23/17. Interpreted by me. (TRUDY STERLING MD) Diagnostic Imaging Diagonstic Imaging: Xray Plain Films/CT/US/NM/MRI: chest Comments Chronic clavicle and rib fractures but no acute findings. (TRUDY STERLING MD) Departure Communication (Admissions) Time/Spoke to Admitting Phy: 03:55 (TRUDY STERLING MD) Impression Primary Impression: Acute exacerbation of chronic obstructive pulmonary disease (COPD) Disposition: 09 ADMITTED INPATIENT Condition: Stable Admissions Decision to Admit Reason: Admit from ER (General) Decision to Admit/Date: Aug 05, 2018 Time/Decision to Admit Time: 03:55 (TRUDY STERLING MD) Departure-Patient Inst. Referrals: [facility] (PCP) Primary Care Physician RIC LI MD (Family) Primary Care Physician MARLYN LOCO MEDICAL STUDENT Aug 05, 2018 03:20 TRUDY STERLING MD Aug 05, 2018 04:01
[2018-08-05 05:31] VITALS: BP 129/63
--- NOTE | 2018-08-05 05:37 | NUR ---
Patient admitted to room 431. Arrived per cart from ER. Easily transfers self to bed. A/O x 4, skin jamaal. Currently receiving HHN, mild sob noted, lung sounds wheezy. C/O feeling cold. Offered hospital gown and refused, prefers to keep jeans on. Strong odor of alcohol noted, admits to drinking vodka before admission. Reports he has not felt well for last few days and that chest hurts/aches from coughing. Admission explained. Call light given. V/U and agrees to care.
[2018-08-05] MEDS ORDERED: ONDANSETRON 4 MG/2 ML (SDV) Z0FRAN IV PRN (05:45)
[2018-08-05] MEDS: NS IV 1000 ML 1,000 ML IV SCH ×2 (06:15→21:17)
--- NOTE | 2018-08-05 07:31 | Diagnostic Imaging Report ---
EXAM: CHEST 1 VIEW, AP/PA ONLY INDICATION: Cough and congestion. COMPARISON: Chest radiograph 06/03/2017. FINDINGS: Hyperinflation. Normal heart size and central pulmonary vascularity. No focal pulmonary opacity, pleural effusion or pneumothorax. Biapical scarring. Chronic left rib and bilateral clavicle fractures. IMPRESSION: 1. No acute cardiopulmonary findings. 2. COPD. 3. Chronic bilateral clavicle and left rib fractures. Dictated by: Dictated on workstation # [id number]
[2018-08-05 08:10] VITALS: BP 98/58
[2018-08-05] MEDS ORDERED: methylPREDNISolone 125 MG (Solu-MEDROL) VIAL IV SCH (09:00)
[2018-08-05 10:40] VITALS: BP 98/58
[2018-08-05] MEDS ORDERED: RT-ALBUTEROL/IPRATROPIUM 3 ML (DUONEB) VIAL INH PRN (11:00)
[2018-08-05 12:10] VITALS: BP 88/52
--- NOTE | 2018-08-05 12:51 | History & Physicial (CHS) ---
HPI History of Present Illness: 58 yo male presented to ER with chest pain (he states this morning as reason, although in ER he denied chest pain) and productive cough and shortness of breath. He has a history of COPD, and used to be on inhalers but has not had them in a couple of years due to not seeing a physician and concern about finances. He does not usually use supplemental oxygen. He reports he is "always thin" and when asked about recent weight loss, he states "not more than normal". He also notes drinking "3 drinks" of vodka per day- reports a drink is a double shot. Has had withdrawal symptoms in past and is interested in detox. Date seen by provider: Aug 05, 2018 Time Seen by Provider: 10:45 Attending Physician Raffy Pastor MD [facility] Consult Date of Admission Aug 05, 2018 at 04:00 Home Medications Home Medications Reviewed patient Home Medication Reconciliation performed by pharmacy medication reconciliations cryptological technician and/or nursing. Patients Allergies have been reviewed. Allergies Coded Allergies: No Known Drug Allergies (Unverified , 08/05/18) TPH-Ghkqhn-Bhahbn Hx Patient Social History Alcohol Use: Regular Use (three mixed drinks each day) Recreational Drug Use: No Smoking Status: Current Everyday Smoker (2-3 ppd) Type Used: Cigarettes Recent Foreign Travel: No Contact w/other who traveled: No Recent Hopitalizations: No Recent Infectious Disease Expo: No Immunizations Up To Date Tetanus Booster (TDap): Unknown Date of Pneumonia Vaccine: Sep 07, 2011 Date of Influenza Vaccine: Oct 22, 2016 Past Medical History PMHx: DVTs COPD Neurocardiogenic syncope Osteoporosis SurgHx: Multiple right leg surgeries for osteomyelitis Thoracotomy for pneuomothorax after trauma Family Medical History Significant Family History: No Pertinent Family Hx, Asthma, Cancer (colon, mother), DVT/PE (sister) Family History: Asthma 19 MOTHER Cardiovascular disease G8 SISTER (blood clots) Colon cancer 19 MOTHER (polyps/hiatal hernia) Congenital disease 19 MOTHER (nuerogenic syncope) Neoplasm Review of Systems (CHC) Constitutional: No fever; malaise, weight loss EENTM: nose congestion; No throat pain Respiratory: see HPI Cardiovascular: see HPI Gastrointestinal: No abdominal pain, No constipation, No diarrhea; nausea, vomiting Genitourinary: No dysuria Skin: No rash Psychiatric/Neurological: No Symptoms Reported Reviewed Test Results Reviewed Test Results Lab Laboratory Tests Test 08/05/18 01:40 Range/Units White Blood Count 9.8 4.3-11.0 10^3/uL Red Blood Count 4.54 4.35-5.85 10^6/uL Hemoglobin 16.3 13.3-17.7 G/DL Hematocrit 47 40-54 % Mean Corpuscular Volume 102 H 80-99 FL Mean Corpuscular Hemoglobin 36 H 25-34 PG Mean Corpuscular Hemoglobin Concent 35 32-36 G/DL Red Cell Distribution Width 14.4 10.0-14.5 % Platelet Count 176 130-400 10^3/uL Mean Platelet Volume 9.1 7.4-10.4 FL Neutrophils (%) (Auto) 76 H 42-75 % Lymphocytes (%) (Auto) 17 12-44 % Monocytes (%) (Auto) 7 0-12 % Eosinophils (%) (Auto) 0 0-10 % Basophils (%) (Auto) 0 0-10 % Neutrophils # (Auto) 7.5 1.8-7.8 X 10^3 Lymphocytes # (Auto) 1.6 1.0-4.0 X 10^3 Monocytes # (Auto) 0.7 0.0-1.0 X 10^3 Eosinophils # (Auto) 0.0 0.0-0.3 10^3/uL Basophils # (Auto) 0.0 0.0-0.1 10^3/uL Sodium Level 145 135-145 MMOL/L Potassium Level 3.7 3.6-5.0 MMOL/L Chloride Level 104 98-107 MMOL/L Carbon Dioxide Level 23 21-32 MMOL/L Anion Gap 18 H 5-14 MMOL/L Blood Urea Nitrogen 9 7-18 MG/DL Creatinine 0.76 0.60-1.30 MG/DL Estimat Glomerular Filtration Rate > 60 BUN/Creatinine Ratio 12 Glucose Level 81 70-105 MG/DL Calcium Level 8.6 8.5-10.1 MG/DL Corrected Calcium 8.4 L 8.5-10.1 MG/DL Magnesium Level 1.7 L 1.8-2.4 MG/DL Total Bilirubin 0.7 0.1-1.0 MG/DL Aspartate Amino Transf (AST/SGOT) 45 H 5-34 U/L Alanine Aminotransferase (ALT/SGPT) 24 0-55 U/L Alkaline Phosphatase 77 40-136 U/L C-Reactive Protein High Sensitivity 0.16 0.00-0.50 MG/DL Total Protein 6.9 6.4-8.2 GM/DL Albumin 4.3 3.2-4.5 GM/DL Radiology CXR: IMPRESSION: 1. No acute cardiopulmonary findings. 2. COPD. 3. Chronic bilateral clavicle and left rib fractures. Physical Exam-(CHC) Physical Exam Vital Signs VS - Last 72 Hours, by Label 08/05/18 08/05/18 08/05/18 08/05/18 01:49 01:58 02:15 04:08 Temp 96.1 Pulse 93 Resp 14 B/P (MAP) 112/74 (87) Pulse Ox 97 97 98 95 O2 Delivery Nasal Cannula Nasal Cannula Nasal Cannula Nasal Cannula O2 Flow Rate 2.00 4.00 4.00 4.00 08/05/18 08/05/18 08/05/18 08/05/18 04:44 05:25 05:31 08:00 Temp 97.6 Pulse 98 109 Resp 16 22 B/P (MAP) 112/74 (87) 129/63 Pulse Ox 98 96 O2 Delivery Nasal Cannula Nasal Cannula Nasal Cannula Nasal Cannula O2 Flow Rate 5.00 3.00 3.50 08/05/18 08/05/18 08/05/18 08/05/18 08:10 10:40 10:40 10:57 Temp 98.5 Pulse 96 92 Resp 20 B/P (MAP) 98/58 (71) Pulse Ox 91 94 94 93 O2 Delivery Nasal Cannula Nasal Cannula Nasal Cannula O2 Flow Rate 4.00 3.50 3.50 08/05/18 12:10 Temp 98.8 Pulse 79 Resp 22 B/P (MAP) 88/52 (64) Pulse Ox 94 O2 Delivery Room Air O2 Flow Rate 0.00 Capillary Refill : Less Than 3 Seconds General Appearance: thin Respiratory: decreased breath sounds, wheezing (LL) Cardiovascular: regular rate, rhythm, no murmur Gastrointestinal: normal bowel sounds, non tender, soft Neurologic/Psychiatric: alert, normal mood/affect Skin: normal color, warm/dry Assessment/Plan Assessment/Plan Admission Dx COPD exacerbation Heavy alcohol use Admission Status: Inpatient Order (span 2 midnights) Reason for Inpatient Admission: Severe COPD exacerbation requiring new supplemental oxygen. (1) Acute exacerbation of chronic obstructive pulmonary disease (COPD) Status: Acute Assessment & Plan: Solumedrol 60 mg q6, RT MAT protocol. Given history of recurrent VTE and not on anticoagulation as well as weight loss and heavy smoking, will check CTA for PE/mass. (2) Elevated AST (SGOT) Status: Acute Assessment & Plan: Check hepatitis panel. Consider alcoholic hepatitis. (3) Macrocytosis Status: Acute Assessment & Plan: Likely related to alcohol use and/or liver disease, check B12 and folate. (4) Hypomagnesemia Status: Acute Assessment & Plan: Replace and recheck. (5) COPD (chronic obstructive pulmonary disease) Status: Chronic Assessment & Plan: Will need to get assistance for inhalers at d/c. (6) Heavy alcohol use Status: Chronic Assessment & Plan: Monitor for withdrawal. SW consult. 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 Start therapeutic enoxaparin for now. Clinical Quality Measures DVT/VTE Risk/Contraindication: Risk Factor Score Per Nursin RFS Level Per Nursing on Admit: 3=High RAFFY PASTOR MD Aug 05, 2018 12:51
[2018-08-05] MEDS: MAGNESIUM 1 GM/100 ML IVPB 100 ML IV SCH ×2 (13:26→14:39)
[2018-08-05] MEDS: ENOXAPARIN 40 MG/0.4 ML (LOVENOX) SYR SC SCH (13:27)
[2018-08-05] MEDS ORDERED: MULT-974 PO (14:11)
[2018-08-05] MEDS ORDERED: ACET-93 PO (14:11)
[2018-08-05] MEDS: RT-ALBUTEROL/IPRATROPIUM 3 ML (DUONEB) VIAL INH SCH ×3 (14:14→22:14)
--- NOTE | 2018-08-05 14:16 | NUR ---
SPOKE WITH PATIENT ABOUT HIS HOME MEDICATIONS, HE DOES NOT TAKE ANY PRESCRIPTIONS BUT DOES TAKE TYLENOL PRN AND A MULTIVITAMIN ONCE D.
--- NOTE | 2018-08-05 14:29 | Pulmonary Consultation ---
History of Present Illness History of Present Illness Date of Consultation 08/05/18 14:24 Time Seen by Provider: 14:24 Date of Admission History of Present Illness 58yo with hx of tobacc, COPD, and alcohol abuse presented to ED secondary to CP, productive cough, and worsening SOB. PT has had withdrawal symptoms in the past and is wanting to detox. I am consulted for pulmonary management. Allergies and Home Medications Allergies Coded Allergies: No Known Drug Allergies (Unverified , 08/05/18) Home Medications Acetaminophen 500 Mg Tablet, 1,000 MG PO Q6H PRN for PAIN-MILD, (Reported) Multivitamin 1 Each Tablet, 1 TAB PO DAILY, (Reported) Past Toxbbpv-Kbgsxc-Vlgslx Hx Past Med/Social Hx: Reviewed Nursing Past Med/Soc Hx Patient Social History Alcohol Use: Regular Use (three mixed drinks each day) Number of Drinks Today: FF Alcohol Beverage of Choice: Beer, Vodka Recreational Drug Use: No Smoking Status: Current Everyday Smoker (2-3 ppd) Type Used: Cigarettes Recent Foreign Travel: No Contact w/Someone Who Travel: No Recent Infectious Disease Expo: No Recent Hopitalizations: No Immunizations Up To Date Tetanus Booster (TDap): Unknown Date of Pneumonia Vaccine: Sep 07, 2011 Date of Influenza Vaccine: Oct 22, 2016 Seasonal Allergies Seasonal Allergies: No Past Medical History Surgeries: Yes Orthopedic Respiratory: Yes Asthma, COPD, Emphysema Currently Using CPAP: No Currently Using BIPAP: No Cardiac: Yes (HYPOTENSION; MULTIPLE DVT'S =--NON COMPLIANT WITH ANTICOAGULANTS) Deep Vein Thrombosis Neurological: No Reproductive Disorders: No Genitourinary: No Gastrointestinal: Yes Gastroesophageal Reflux, Wallis's Esophagus, Polyps, Ulcer Musculoskeletal: Yes Osteoporosis, Arthritis, Back Injury, Chronic Back Pain, Fractures Endocrine: No HEENT: No Cancer: No Psychosocial: Yes Anxiety, PTSD, Bipolar, Personality Disorder, Depression Integumentary: No Blood Disorders: Yes (MULTIPLE DVT'S ) Adverse Reaction/Blood Tranf: No Family Medical History Asthma 19 MOTHER Cardiovascular disease G8 SISTER (blood clots) Colon cancer 19 MOTHER (polyps/hiatal hernia) Congenital disease 19 MOTHER (nuerogenic syncope) Neoplasm No Pertinent Family Hx, Asthma, Cancer, DVT/PE Review of Systems Time Seen by Provider: 11:40 Constitutional: Sweats, Weakness, Malaise; No: Fever, Chills, Other Eyes: No: Pain, Vision change, Conjunctivae inflammation, Eyelid inflammation, Other, Redness ENT: Nose congestion; No: Ear pain, Ear discharge, Nose pain, Nose discharge, Mouth pain, Mouth swelling, Throat pain, Throat swelling, Other Respiratory: Cough, Shortness of breath, SOB with excertion, Wheezing, Sputum; No: Hemoptysis, Pleuritic Pain Cardiovascular: Palpitations, Paroxysmal Noc. Dyspnea; No: Chest Pain, Orthopnea, Edema, Lt Headedness, Other Gastrointestinal: No: Nausea, Vomiting, Abdominal Pain, Diarrhea, Constipation, Melena, Hematochezia, Other Sepsis Event Evaluation Height, Weight, BMI Height: 5'4.00" Weight: 100lbs. 1.0oz. 45.563626ig; 17.2 BMI Method:Estimated Exam Exam Vital Signs Date Time Temp Pulse Resp B/P (MAP) Pulse Ox O2 Delivery O2 Flow Rate FiO2 08/05/18 14:14 94 Nasal Cannula 3.50 08/05/18 12:10 98.8 79 22 88/52 (64) 94 Room Air 0.00 08/05/18 10:57 93 Nasal Cannula 3.50 08/05/18 10:40 94 Nasal Cannula 3.50 08/05/18 10:40 92 94 08/05/18 08:10 98.5 96 20 98/58 (71) 91 Nasal Cannula 4.00 08/05/18 08:00 Nasal Cannula 3.50 08/05/18 05:31 97.6 109 22 129/63 96 Nasal Cannula 3.00 08/05/18 05:25 Nasal Cannula 5.00 08/05/18 04:44 98 16 112/74 (87) 98 Nasal Cannula 08/05/18 04:08 95 Nasal Cannula 4.00 08/05/18 02:15 98 Nasal Cannula 4.00 08/05/18 01:58 97 Nasal Cannula 4.00 08/05/18 01:49 96.1 93 14 112/74 (87) 97 Nasal Cannula 2.00 I & O 08/05/18 07:00 Intake Total 300 ml Output Total 0 ml Balance 300 ml Height & Weight Height: 5'4.00" Weight: 100lbs. 1.0oz. 45.926792bn; 17.2 BMI Method:Estimated General Appearance: No Apparent Distress, Thin HEENT: PERRL/EOMI, TMs Normal, Pharynx Normal Neck: Non Tender, Limited Range of Motion (kyphosis) Respiratory: Chest Non Tender, Decreased Breath Sounds Cardiovascular: No Murmur, Tachycardia Capillary Refill: Less Than 3 Seconds Gastrointestinal: normal bowel sounds, non tender, soft Extremity: Normal Range of Motion, Non Tender Neurologic/Psychiatric: Alert, Oriented x3 Skin: Normal Color, Warm/Dry Results Lab Laboratory Tests 08/05/18 01:40 Assessment/Plan Assessment/Plan COPDAE -SVNS -oxygen -Solumedrol - decrease to 40 Q6 Alcohol dependance -Education -Monitor Elevated AST -Monitor HARI JUSTIN DO Aug 05, 2018 14:29
[2018-08-05] MEDS: methylPREDNISolone 40 MG/ML (Solu-MEDROL) VIAL IV SCH ×2 (14:49→21:16)
[2018-08-05] MEDS ORDERED: NS 100 ML (IVPB) BAG IV ONE (15:00)
[2018-08-05] MEDS ORDERED: IOHEXOL 350 MG/ML 100 ML (OMNIPAQUE 350) VIAL IV ONE (15:00)
[2018-08-05] MEDS ORDERED: HOLD METFORMIN - RECEIVED CONTRAST 20 ML VIAL IV SCH (15:00)
[2018-08-05 16:00] VITALS: BP 88/54
--- NOTE | 2018-08-05 18:38 | Diagnostic Imaging Report ---
PROCEDURE: CT angiography of the chest with contrast. TECHNIQUE: Multiple contiguous axial images were obtained through the chest after uneventful bolus administration of intravenous contrast. 2D reconstructed CTA MIP acquisitions were also performed. Auto Exposure Controls were utilized during the CT exam to meet ALARA standards for radiation dose reduction. INDICATION: DVT with weight loss. COMPARISON: Study compared with 06/03/2017. FINDINGS: Pulmonary arterial branches are well opacified and widely patent. There are no filling defects. There are no findings of pulmonary arterial embolus. The thoracic aorta is patent and nonaneurysmal. No dissection, mural hemorrhage, or vessel rupture is seen. No consolidating pneumonia. There is some mild dependent atelectasis as well as changes of centrilobular emphysema and right greater than left biapical pleural-parenchymal scarring. No effusion or pneumothorax. The visualized upper abdomen is nonacute. IMPRESSION: Negative for PE or acute aortic disease. Changes of COPD and minimal atelectasis, otherwise unremarkable. Dictated by: Dictated on workstation # [id number]
[2018-08-05 19:35] VITALS: BP 96/59
[2018-08-05] MEDS ORDERED: MELATONIN 3 MG TABLET PO PRN (20:45)
[2018-08-05] MEDS ORDERED: KETOROLAC 30 MG/ML VIAL ONE (21:07)
[2018-08-05] MEDS: KETOROLAC 30 MG/ML VIAL IVP PRN (21:16)
[2018-08-06] VITALS: BP 90/59
[2018-08-06] MEDS: ENOXAPARIN 40 MG/0.4 ML (LOVENOX) SYR SC SCH ×2 (00:47→13:48)
[2018-08-06] MEDS: RT-ALBUTEROL/IPRATROPIUM 3 ML (DUONEB) VIAL INH SCH ×6 (03:12→23:11)
[2018-08-06] MEDS: methylPREDNISolone 40 MG/ML (Solu-MEDROL) VIAL IV SCH ×4 (03:47→21:13)
[2018-08-06] MEDS: KETOROLAC 30 MG/ML VIAL IVP PRN ×4 (03:51→21:13)
[2018-08-06 04:43] VITALS: BP 98/57
[2018-08-06 05:56] LABS: HEMOGLOBIN 13.3 G/DL (13.3-17.7); MEAN PLATELET VOLUME 9.3 FL (7.4-10.4); RED CELL DISTRIBUTION WIDTH 13.7 % (10.0-14.5); WHITE BLOOD COUNT 10.5 10^3/uL (4.3-11.0)
[2018-08-06 06:23] LABS: ALANINE AMINOTRANSFERASE 28 U/L (0-55); ALBUMIN 3.5 GM/DL (3.2-4.5); ALKALINE PHOSPHATASE 60 U/L (40-136); BILIRUBIN,TOTAL 0.7 MG/DL (0.1-1.0); BUN/CREATININE RATIO 24; CALCIUM 7.5 MG/DL (8.5-10.1); CARBON DIOXIDE 24 MMOL/L (21-32); CHLORIDE 105 MMOL/L (98-107); CREATININE SERUM 0.63 MG/DL (0.60-1.30); GFR ESTIMATED > 60; GLUCOSE 161 MG/DL (70-105); MAGNESIUM 1.9 MG/DL (1.8-2.4); POTASSIUM 3.6 MMOL/L (3.6-5.0); SODIUM 138 MMOL/L (135-145); TOTAL PROTEIN 5.4 GM/DL (6.4-8.2)
[2018-08-06 06:42] LABS: HEPATITIS C ANTIBODY C Non-Reactive (Non-Reactive)
[2018-08-06 08:00] VITALS: BP 90/57
[2018-08-06] MEDS: NS IV 1000 ML 1,000 ML IV SCH ×2 (08:17→23:48)
--- NOTE | 2018-08-06 08:18 | Pulmonary Progress Note ---
Subjective Time Seen by a Provider: 08:18 Subjective/Events-last exam c/o SOB no cp Sepsis Event Evaluation Height, Weight, BMI Height: 5'4.00" Weight: 100lbs. 1.0oz. 45.184456bc; 17.2 BMI Method:Estimated Exam Exam Vital Signs Date Time Temp Pulse Resp B/P (MAP) Pulse Ox O2 Delivery O2 Flow Rate FiO2 08/06/18 07:54 100 Nasal Cannula 3.00 08/06/18 04:43 96.7 68 17 98/57 (71) Nasal Cannula 3.00 08/06/18 03:13 97 Nasal Cannula 3.50 08/06/18 00:00 96.9 73 20 90/59 (69) 96 Nasal Cannula 3.50 3.50 08/05/18 23:30 96 Nasal Cannula 3.50 08/05/18 22:15 96 Nasal Cannula 3.50 08/05/18 19:35 96.9 73 20 96/59 (71) 96 Nasal Cannula 3.00 08/05/18 16:00 97.1 71 20 88/54 (65) 96 Nasal Cannula 3.00 08/05/18 14:14 94 Nasal Cannula 3.50 08/05/18 12:10 98.8 79 22 88/52 (64) 94 Room Air 0.00 08/05/18 10:57 93 Nasal Cannula 3.50 08/05/18 10:40 94 Nasal Cannula 3.50 08/05/18 10:40 92 94 08/05/18 08:10 98.5 96 20 98/58 (71) 91 Nasal Cannula 4.00 I & O 08/06/18 07:00 Intake Total 2921 ml Output Total 875 ml Balance 2046 ml Height & Weight Height: 5'4.00" Weight: 100lbs. 1.0oz. 45.921975sd; 17.2 BMI Method:Estimated General Appearance: No Apparent Distress, Thin HEENT: PERRL/EOMI, TMs Normal, Pharynx Normal Neck: Non Tender, Limited Range of Motion (kyphosis) Respiratory: Chest Non Tender, Decreased Breath Sounds Cardiovascular: No Murmur, Tachycardia Capillary Refill: Less Than 3 Seconds Gastrointestinal: normal bowel sounds, non tender, soft Extremity: Normal Range of Motion, Non Tender Neurologic/Psychiatric: Alert, Oriented x3 Skin: Normal Color, Warm/Dry Results Lab Laboratory Tests 08/05/18 01:40 08/06/18 05:35 Assessment/Plan Assessment/Plan COPDAE -SVNS -oxygen -Solumedrol - decrease to 40 Q6 Alcohol dependance -Education -Monitor Elevated AST -Monitor HARI JUSTIN DO Aug 06, 2018 08:18
--- NOTE | 2018-08-06 11:30 | Progress Note (SOAP) ---
Subjective Subjective/Events-last exam Afebrile, states he has chest pain that initially was on left and resolved with toradol, but this am is migrating to right. Is sharp and associated with deep breath. Review of Systems Date Seen by Provider: Aug 06, 2018 Time Seen by Provider: 10:55 Objective Exam Last Set of Vital Signs Vital Signs Date Time Temp Pulse Resp B/P (MAP) Pulse Ox O2 Delivery O2 Flow Rate FiO2 08/06/18 08:00 Nasal Cannula 3.50 08/06/18 08:00 98.3 68 20 90/57 (68) 100 Capillary Refill : Less Than 3 SecondsLess Than 3 Seconds I&O Intake and Output 08/06/18 00:00 Intake Total 2921 ml Output Total 525 ml Balance 2396 ml Intake Oral 2720 ml IV Total 201 ml Output Urine Total 525 ml Daily Weight Change Unsure General: Alert, No Acute Distress Lungs: Clear to Auscultation Heart: Regular Rate, No Murmurs Neuro: Normal Speech Psych/Mental Status: Mood NL Results/Procedures Lab Laboratory Tests 08/05/18 13:34: Vitamin B12 Level 668, Folate 12.6, Hepatitis A IgM Antibody Non-Reactive, Hepatitis B Surface Antigen Non-Reactive, Hepatitis B Core IgM Antibody Non- Reactive, Hepatitis C Antibody Non-Reactive 08/06/18 05:35: White Blood Count 10.5, Red Blood Count 3.77L, Hemoglobin 13.3, Hematocrit 38L, Mean Corpuscular Volume 102H, Mean Corpuscular Hemoglobin 35H, Mean Corpuscular Hemoglobin Concent 35, Red Cell Distribution Width 13.7, Platelet Count 80L, Mean Platelet Volume 9.3, Sodium Level 138, Potassium Level 3.6, Chloride Level 105, Carbon Dioxide Level 24, Anion Gap 9, Blood Urea Nitrogen 15, Creatinine 0.63, Estimat Glomerular Filtration Rate > 60, BUN/Creatinine Ratio 24, Glucose Level 161H, Calcium Level 7.5L, Corrected Calcium 7.9L, Magnesium Level 1.9, Total Bilirubin 0.7, Aspartate Amino Transf (AST/SGOT) 47H, Alanine Aminotransferase (ALT/SGPT) 28, Alkaline Phosphatase 60, Total Protein 5.4L, Albumin 3.5 Radiology CXR: IMPRESSION: 1. No acute cardiopulmonary findings. 2. COPD. 3. Chronic bilateral clavicle and left rib fractures. Assessment/Plan Assessment/Plan (1) Acute exacerbation of chronic obstructive pulmonary disease (COPD) Status: Acute Assessment & Plan: Solumedrol 60 mg q6, RT MAT protocol. Given history of recurrent VTE and not on anticoagulation as well as weight loss and heavy smoking, will check CTA for PE/mass. 08/06- CT chest with no PE or mass. Dr. Sutherland following, appreciate recommendations. Solumedrol decreased to 40 mg q6h. (2) Elevated AST (SGOT) Status: Acute Assessment & Plan: Check hepatitis panel. Consider alcoholic hepatitis. 08/06 Hepatitis panel neg (3) Macrocytosis Status: Acute Assessment & Plan: Likely related to alcohol use and/or liver disease, check B12 and folate. 08/06 B12/folate normal (4) Hypomagnesemia Status: Acute Assessment & Plan: Replace and recheck. (5) COPD (chronic obstructive pulmonary disease) Status: Chronic Assessment & Plan: Will need to get assistance for inhalers at d/c. (6) Heavy alcohol use Status: Chronic Assessment & Plan: Monitor for withdrawal. SW consult. (7) Thrombocytopenia Status: Acute Assessment & Plan: Unclear etiology, monitor closely given start of enoxaparin day prior. (8) Chest pain Status: Acute Assessment & Plan: Suspect pleuritic/cough associated chest pain, but will check troponin and EKG given migration today. 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 Start therapeutic enoxaparin for now. Clinical Quality Measures DVT/VTE Risk/Contraindication: Risk Factor Score Per Nursin RFS Level Per Nursing on Admit: 3=High RAFFY ELIZONDO MD Aug 06, 2018 11:30
[2018-08-06 12:00] VITALS: BP 87/54
[2018-08-06 15:31] VITALS: BP 85/54
[2018-08-06 19:57] VITALS: BP 92/53
[2018-08-07 00:15] VITALS: BP 96/63
[2018-08-07] MEDS: ENOXAPARIN 40 MG/0.4 ML (LOVENOX) SYR SC SCH ×2 (01:52→12:51)
[2018-08-07] MEDS: RT-ALBUTEROL/IPRATROPIUM 3 ML (DUONEB) VIAL INH SCH ×5 (03:15→23:07)
[2018-08-07] MEDS: methylPREDNISolone 40 MG/ML (Solu-MEDROL) VIAL IV SCH (03:35)
[2018-08-07 04:00] VITALS: BP 98/55
[2018-08-07 06:39] LABS: HEMOGLOBIN 14.1 G/DL (13.3-17.7); MEAN PLATELET VOLUME 9.2 FL (7.4-10.4); RED CELL DISTRIBUTION WIDTH 14.1 % (10.0-14.5); WHITE BLOOD COUNT 11.9 10^3/uL (4.3-11.0)
[2018-08-07 06:58] LABS: BUN/CREATININE RATIO 22; CALCIUM 7.9 MG/DL (8.5-10.1); CARBON DIOXIDE 23 MMOL/L (21-32); CHLORIDE 108 MMOL/L (98-107); CREATININE SERUM 0.64 MG/DL (0.60-1.30); GFR ESTIMATED > 60; GLUCOSE 128 MG/DL (70-105); SODIUM 140 MMOL/L (135-145)
--- NOTE | 2018-08-07 07:57 | Pulmonary Progress Note ---
Subjective Time Seen by a Provider: 11:37 Subjective/Events-last exam Appears to be doing better. Sepsis Event Evaluation Height, Weight, BMI Height: 5'4.00" Weight: 100lbs. 1.0oz. 45.048200to; 17.2 BMI Method:Estimated Exam Exam Vital Signs Date Time Temp Pulse Resp B/P (MAP) Pulse Ox O2 Delivery O2 Flow Rate FiO2 08/07/18 04:00 98.2 98 18 98/55 (69) 95 Nasal Cannula 1.00 08/07/18 03:16 96 Nasal Cannula 1.00 08/07/18 00:15 98.2 98 18 96/63 (74) 95 Nasal Cannula 1.00 08/06/18 23:12 94 Nasal Cannula 1.00 08/06/18 20:00 94 Nasal Cannula 1.00 08/06/18 19:57 99.3 73 16 92/53 (66) 94 Nasal Cannula 1.00 08/06/18 19:02 95 Nasal Cannula 1.00 08/06/18 15:31 99.0 81 18 85/54 (64) 96 Nasal Cannula 1.00 08/06/18 12:00 97.3 85 16 87/54 (65) 96 Nasal Cannula 08/06/18 08:00 Nasal Cannula 3.50 08/06/18 08:00 98.3 68 20 90/57 (68) 100 Nasal Cannula 3.50 3.50 I & O 08/07/18 07:00 Intake Total 2690 ml Output Total 1650 ml Balance 1040 ml Height & Weight Height: 5'4.00" Weight: 100lbs. 1.0oz. 45.027546cz; 17.2 BMI Method:Estimated General Appearance: No Apparent Distress, Thin HEENT: PERRL/EOMI, TMs Normal, Pharynx Normal Neck: Non Tender, Limited Range of Motion (kyphosis) Respiratory: Chest Non Tender, Decreased Breath Sounds Cardiovascular: No Murmur, Tachycardia Capillary Refill: Less Than 3 Seconds Gastrointestinal: normal bowel sounds, non tender, soft Extremity: Normal Range of Motion, Non Tender Neurologic/Psychiatric: Alert, Oriented x3 Skin: Normal Color, Warm/Dry Results Lab Laboratory Tests 08/06/18 05:35 08/07/18 06:34 Assessment/Plan Assessment/Plan COPDAE -SVNS -oxygen -Solumedrol - change to prednisone taper Alcohol dependance -Education -Monitor Elevated AST -Monitor HARI JUSTIN DO Aug 07, 2018 07:57
[2018-08-07 08:00] VITALS: BP 104/59
[2018-08-07] MEDS: predniSONE 10 MG TAB PO SCH (08:38)
[2018-08-07] MEDS: KETOROLAC 30 MG/ML VIAL IVP PRN ×2 (08:41→21:20)
[2018-08-07 12:00] VITALS: BP 111/62
[2018-08-07] MEDS: NS IV 1000 ML 1,000 ML IV SCH (12:51)
--- NOTE | 2018-08-07 13:25 | NUR ---
NOTIFIED DR PATEL OF CONSULT. ORDERS RECEIVED.
[2018-08-07 15:55] VITALS: BP 98/65
--- NOTE | 2018-08-07 16:37 | Progress Note (SOAP) ---
Subjective Subjective/Events-last exam Breathing improved, transitioned to oral prednisone. Reports feeling better. Review of Systems Date Seen by Provider: Aug 07, 2018 Time Seen by Provider: 11:35 Objective Exam Last Set of Vital Signs Vital Signs Date Time Temp Pulse Resp B/P (MAP) Pulse Ox O2 Delivery O2 Flow Rate FiO2 08/07/18 15:55 99.2 90 20 98/65 (76) 98 Nasal Cannula 1.00 Capillary Refill : Less Than 3 SecondsLess Than 3 Seconds I&O Intake and Output 08/06/18 23:59 Intake Total 2540 ml Output Total 1150 ml Balance 1390 ml Intake Oral 1540 ml IV Total 1000 ml Output Urine Total 1150 ml General: Alert, No Acute Distress Lungs: Clear to Auscultation, Normal Air Movement Heart: Regular Rate, No Murmurs Neuro: Normal Speech Psych/Mental Status: Mental Status NL Results/Procedures Lab Laboratory Tests 08/06/18 21:22: Troponin I < 0.028 08/07/18 06:34: White Blood Count 11.9H, Red Blood Count 4.01L, Hemoglobin 14.1, Hematocrit 41, Mean Corpuscular Volume 103H, Mean Corpuscular Hemoglobin 35H, Mean Corpuscular Hemoglobin Concent 34, Red Cell Distribution Width 14.1, Platelet Count 94L, Mean Platelet Volume 9.2, Sodium Level 140, Potassium Level 4.0, Chloride Level 108H, Carbon Dioxide Level 23, Anion Gap 9, Blood Urea Nitrogen 14, Creatinine 0.64, Estimat Glomerular Filtration Rate > 60, BUN/Creatinine Ratio 22, Glucose Level 128H, Calcium Level 7.9L Radiology CXR: IMPRESSION: 1. No acute cardiopulmonary findings. 2. COPD. 3. Chronic bilateral clavicle and left rib fractures. Assessment/Plan Assessment/Plan (1) Acute exacerbation of chronic obstructive pulmonary disease (COPD) Status: Acute Assessment & Plan: Solumedrol 60 mg q6, RT MAT protocol. Given history of recurrent VTE and not on anticoagulation as well as weight loss and heavy smoking, will check CTA for PE/mass. 08/06- CT chest with no PE or mass. Dr. Sutherland following, appreciate recommendations. Solumedrol decreased to 40 mg q6h. 08/07 Changed to oral prednisone (2) Elevated AST (SGOT) Status: Acute Assessment & Plan: Check hepatitis panel. Consider alcoholic hepatitis. 08/06 Hepatitis panel neg (3) Macrocytosis Status: Acute Assessment & Plan: Likely related to alcohol use and/or liver disease, check B12 and folate. 08/06 B12/folate normal (4) Hypomagnesemia Status: Acute Assessment & Plan: Replace and recheck. (5) COPD (chronic obstructive pulmonary disease) Status: Chronic Assessment & Plan: Will need to get assistance for inhalers at d/c. (6) Heavy alcohol use Status: Chronic Assessment & Plan: Monitor for withdrawal. SW consult. (7) Thrombocytopenia Status: Acute Assessment & Plan: Unclear etiology, monitor closely given start of enoxaparin day prior. (8) Chest pain Status: Acute Assessment & Plan: Suspect pleuritic/cough associated chest pain, but will check troponin and EKG given migration today. 08/07 EKG okay, troponin elevated mildly and trended back down to normal, already on treatment dose enoxaparin. Will get Cardiology opinion before d/c. 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 Start therapeutic enoxaparin for now. Clinical Quality Measures DVT/VTE Risk/Contraindication: Risk Factor Score Per Nursin RFS Level Per Nursing on Admit: 3=High RAFFY ELIZONDO MD Aug 07, 2018 16:37
[2018-08-07 19:50] VITALS: BP 110/59
--- NOTE | 2018-08-07 20:33 | Consultation-Cardiology ---
HPI-Cardiology Cardiology Consultation: Date of Consultation 08/07/18 Time Seen by a Provider: 20:00 Date of Admission Attending Physician Aparna Pastor MD Admitting Physician [facility] Consulting Physician TIM PATEL MD, MA, FACP, FACC, [place], CCDS Physician requesting consult: Dr Pastor HPI: Chief Complaint: Reason for consultation: Chest pain HPI 58 yo man admitted to Dr Pastor with ac exac of COPD on 08/05/18. Has been having nearly continuous chest pain for several day: L or R parasternal, worse with inspiration or coughing, sharp, varying from mod to moderately severe, never experienced before, somewhat better over the course of last day. Has chronic shortness of breath with exertion that has been worse lately. Cough productive of small quantities of yellowish sputum. Gen malaise. Review of Systems-Cardiology Review of Systems Constitutional: As described under HPI Eyes: No vision change Ears/Nose/Throat: No ear discharge, No nasal drainage, No recent hearing loss Respiratory: As described under HPI Cardiovascular: As described under HPI Gastrointestinal: No diarrhea, No nausea, No vomiting Genitourinary: No dysuria, No hematuria, No urine frequency changes Musculoskeletal: back pain Skin: No rash, No ulcerations Psychiatric/Neurological: No seizure, No focal weakness, No syncope Hematologic: No bleeding abnormalities All Other Systems Reviewed Negative Unless Noted: Yes [facility] Hx Patient Social History Alcohol Use: Regular Use (three mixed drinks each day) Recreational Drug Use: No Smoking Status: Current Everyday Smoker (2-3 ppd) Type Used: Cigarettes Recent Foreign Travel: No Recent Infectious Disease Expo: No Immunizations Up To Date Tetanus Booster (TDap): Unknown Date of Pneumonia Vaccine: Sep 07, 2011 Date of Influenza Vaccine: Oct 22, 2016 Past Medical History PMH As described under Assessment. Family Medical History Family History: Asthma 19 MOTHER Cardiovascular disease G8 SISTER (blood clots) Colon cancer 19 MOTHER (polyps/hiatal hernia) Congenital disease 19 MOTHER (nuerogenic syncope) Neoplasm Allergies and Home Medications Allergies Coded Allergies: No Known Drug Allergies (Unverified , 08/05/18) Home Medications Acetaminophen 500 Mg Tablet, 1,000 MG PO Q6H PRN for PAIN-MILD, (Reported) Multivitamin 1 Each Tablet, 1 TAB PO DAILY, (Reported) Patient Home Medication List Home Medication List Reviewed: Yes Physical Exam-Cardiology Physical Exam Vital Signs/I&O 08/07/18 08/07/18 08/07/18 08/07/18 09:09 12:00 15:48 15:55 Temp 99.0 99.2 Pulse 111 90 Resp 18 20 B/P (MAP) 111/62 (78) 98/65 (76) Pulse Ox 93 97 92 98 O2 Delivery Nasal Cannula Nasal Cannula Nasal Cannula Nasal Cannula O2 Flow Rate 1.00 1.00 1.00 1.00 08/07/18 08/07/18 19:16 19:50 Temp 99.8 Pulse 118 Resp 20 B/P (MAP) 110/59 (76) Pulse Ox 93 92 O2 Delivery Room Air Room Air 08/07/18 00:00 Intake Total 2240 ml Output Total 800 ml Balance 1440 ml Capillary Refill : Less Than 3 SecondsLess Than 3 Seconds Constitutional: AAO x 3, well-developed, well-nourished HEENT: PERRL, EOMI, hearing is well preserved; No xanthelasmas are seen Neck: carotid pulses are 2 + bilaterally, with good upstrokes Respiratory: No accessory muscle use; other (Fair air entry, prolonged expiration, scattered rhonchi) Cardiovascular: regular rate-rhythm, S1 and S2, systolic murmur (faint HEMAL at card base) Gastrointestinal: No tender; soft; No guarding, No rebound; audible bowel sounds Extremities: No clubbing, No cyanosis, No significant edema Neurologic/Psychiatric: oriented x 3, grossly intact, power is 5/5 both on sides Skin: No rash on exposed areas, No ulcerations on exposed areas Data Review Labs Laboratory Tests 08/06/18 21:22: Troponin I < 0.028 08/07/18 06:34: White Blood Count 11.9H, Red Blood Count 4.01L, Hemoglobin 14.1, Hematocrit 41, Mean Corpuscular Volume 103H, Mean Corpuscular Hemoglobin 35H, Mean Corpuscular Hemoglobin Concent 34, Red Cell Distribution Width 14.1, Platelet Count 94L, Mean Platelet Volume 9.2, Sodium Level 140, Potassium Level 4.0, Chloride Level 108H, Carbon Dioxide Level 23, Anion Gap 9, Blood Urea Nitrogen 14, Creatinine 0.64, Estimat Glomerular Filtration Rate > 60, BUN/Creatinine Ratio 22, Glucose Level 128H, Calcium Level 7.9L Laboratory Tests 08/06/18 05:35 08/07/18 06:34 A/P-Cardiology Assessment/Admission Diagnosis Chest pain, likely pleurisy due to pneumonia/bronchitis Minimal troponin elevation, likely type 2 OK due to COPD exacerbation Echo on 08/07/18: LVEF 60-65%, RVSP approx 20 mmHg. ECG on 08/07/18 (during chest pain): No evidence of acute ischemia or infarction Acute exacerbation of chronic obstructive pulmonary disease (COPD) Chronic heavy tobacco and alcohol use Mild thrombocytopenia of unclear etiology, managed by the Med Svce Discussion and Recomendations * Advised to refrain from tobacco and alcohol use * Outpt f/u advised Clinical Quality Measures DVT/VTE Risk/Contraindication: Risk Factor Score Per Nursin RFS Level Per Nursing on Admit: 3=High TIM PATEL MD FACP FAC CCDS Aug 07, 2018 20:33
[2018-08-08] VITALS: BP 101/61
[2018-08-08] MEDS: ENOXAPARIN 40 MG/0.4 ML (LOVENOX) SYR SC SCH ×2 (01:21→13:40)
[2018-08-08] MEDS: NS IV 1000 ML 1,000 ML IV SCH (02:24)
[2018-08-08] MEDS: RT-ALBUTEROL/IPRATROPIUM 3 ML (DUONEB) VIAL INH SCH (02:34)
[2018-08-08] MEDS ORDERED: RT-ALBUTEROL/IPRATROPIUM 3 ML (DUONEB) VIAL INH PRN (02:45)
[2018-08-08 04:00] VITALS: BP 115/61
[2018-08-08 08:00] VITALS: BP 120/66
[2018-08-08] MEDS ORDERED: RT-ALBUTEROL/IPRATROPIUM 3 ML (DUONEB) VIAL INH SCH (08:00)
[2018-08-08] MEDS: predniSONE 10 MG TAB PO SCH (09:05)
[2018-08-08] MEDS: KETOROLAC 30 MG/ML VIAL IVP PRN (09:15)
--- NOTE | 2018-08-08 11:39 | Pulmonary Progress Note ---
Subjective Time Seen by a Provider: 11:38 Subjective/Events-last exam Pt wants to go home. Sepsis Event Evaluation Height, Weight, BMI Height: 5'4.00" Weight: 100lbs. 1.0oz. 45.909798sp; 17.2 BMI Method:Estimated Exam Exam Vital Signs Date Time Temp Pulse Resp B/P (MAP) Pulse Ox O2 Delivery O2 Flow Rate FiO2 08/08/18 08:00 93 Room Air 08/08/18 08:00 97.0 109 18 120/66 (84) 92 Room Air 08/08/18 08:00 93 Room Air 08/08/18 04:00 98.3 77 18 115/61 (79) 96 Room Air 08/08/18 00:00 84 94 08/08/18 00:00 98.6 84 18 101/61 (74) 94 Room Air 08/07/18 23:07 97 Room Air 08/07/18 20:00 Room Air 08/07/18 19:50 99.8 118 20 110/59 (76) 92 Room Air 08/07/18 19:16 93 Room Air 08/07/18 15:55 99.2 90 20 98/65 (76) 98 Nasal Cannula 1.00 08/07/18 15:48 92 Nasal Cannula 1.00 08/07/18 12:00 99.0 111 18 111/62 (78) 97 Nasal Cannula 1.00 I & O 08/08/18 07:00 Intake Total 2930 ml Output Total 1600 ml Balance 1330 ml Height & Weight Height: 5'4.00" Weight: 100lbs. 1.0oz. 45.162051ui; 17.2 BMI Method:Estimated General Appearance: No Apparent Distress, Thin HEENT: PERRL/EOMI, TMs Normal, Pharynx Normal Neck: Non Tender, Limited Range of Motion (kyphosis) Respiratory: Chest Non Tender, Decreased Breath Sounds Cardiovascular: No Murmur, Tachycardia Capillary Refill: Less Than 3 Seconds Gastrointestinal: normal bowel sounds, non tender, soft Extremity: Normal Range of Motion, Non Tender Neurologic/Psychiatric: Alert, Oriented x3 Skin: Normal Color, Warm/Dry Results Lab Laboratory Tests 08/07/18 06:34 Assessment/Plan Assessment/Plan COPDAE -SVNS -oxygen -Continue prednisone taper Alcohol dependance -Education -Monitor Elevated AST -Monitor PT is ok from pulmonary standpoint for discharge. HARI JUSTIN DO Aug 08, 2018 11:38
[2018-08-08 12:00] VITALS: BP 121/64
[2018-08-08] MEDS ORDERED: PRD10T PO (12:37)
[2018-08-08] MEDS ORDERED: TIOT4MIS2 IH (12:37)
[2018-08-08] MEDS ORDERED: RT-ALBUINH INH (12:37)
--- NOTE | 2018-08-08 12:40 | Discharge Instructions ---
Discharge Inst-[facility] Discharge Medications New, Converted or Re-Newed RX: Other New Medications: Albuterol Sulfate (Proventil Hfa) 6.7 Gm Hfa.aer.ad 2 PUFF INH Q4H for Shortness of Breath, #1 EACH 0 Refills Tiotropium [place] (Spiriva Respimat 2.5MCG/ACTUATION) 4 Gm Mist.inhal 2 PUFF IH DAILY, #5 INH 0 Refills Prednisone (Prednisone) 10 Mg Tab 0 PO UD for 9 Days, TAB Take 5 tabs(50mg)daily, decrease by 1 tab(10mg) every other day. Continued Medications: Acetaminophen (Acetaminophen) 500 Mg Tablet 1000 MG PO Q6H PRN for PAIN-MILD, TAB Multivitamin (Multi-Vitamin Daily) 1 Each Tablet 1 TAB PO DAILY, TAB Patient Instructions Goal/Follow Up Appt: Follow up at [facility] with Maryana Flanagan APRN (nurse practitioner with Dr. Calvo) on 08/12 at 1240 pm. Patient Instructions: In addition to the meds above which will be delivered to your home, there will also be a blood thinner delivered. It may be either Xarelto, Pradaxa or Eliquis depending on what is available in the repository. Instructions for this med will be on the bottle. Return to The Hospital For: Fever, inability to keep down medications, worsening shortness of breath Activity & Diet Discharge Diet: No Restrictions Activity as Tolerated: Yes Copy Copies To 1: RIC CALVO MD, BETHANY N MD Aug 08, 2018 12:40
--- NOTE | 2018-08-08 12:43 | Discharge Summary ---
Diagnosis/Chief Complaint Date of Admission Aug 05, 2018 at 04:00 Date of Discharge August 08, 2018 Admission Diagnosis Admission Diagnosis Acute exacerbation of COPD Discharge Diagnosis See problem list Problems/Diagnosis: (1) Acute exacerbation of chronic obstructive pulmonary disease (COPD) Assessment & Plan: Solumedrol 60 mg q6, RT MAT protocol. Given history of recurrent VTE and not on anticoagulation as well as weight loss and heavy smoking, will check CTA for PE/mass. 08/06- CT chest with no PE or mass. Dr. Sutherland following, appreciate recommendations. Solumedrol decreased to 40 mg q6h. 08/07 Changed to oral prednisone and continued on d/c with taper Status: Acute (2) Elevated AST (SGOT) Assessment & Plan: Check hepatitis panel. Consider alcoholic hepatitis. 08/06 Hepatitis panel neg Status: Acute (3) Macrocytosis Assessment & Plan: Likely related to alcohol use and/or liver disease, check B12 and folate. 08/06 B12/folate normal Status: Acute (4) Hypomagnesemia Assessment & Plan: Replaced Status: Acute (5) COPD (chronic obstructive pulmonary disease) Assessment & Plan: Proventil vouchered at [facility] and Spiriva obtained from [facility] repository on d/c. Status: Chronic (6) Heavy alcohol use Assessment & Plan: Monitored for withdrawal, no symptoms. SW consult. Status: Chronic (7) Thrombocytopenia Assessment & Plan: Unclear etiology, monitor closely given start of enoxaparin day prior. Trended up before d/c but still low, maybe related to alcoholic liver disease, needs outpt followup. Status: Acute (8) Chest pain Assessment & Plan: Suspect pleuritic/cough associated chest pain, but will check troponin and EKG given migration today. 08/07 EKG okay, troponin elevated mildly and trended back down to normal, already on treatment dose enoxaparin. Cardiology recommended outpt follow up. Qualifiers: Qualified Codes: R07.1 - Chest pain on breathing Status: Acute Chief Complaint/HPI Chief Complaint/HPI 58 yo male presented to ER with chest pain (he states this morning as reason, although in ER he denied chest pain) and productive cough and shortness of b reath. He has a history of COPD, and used to be on inhalers but has not had them in a couple of years due to not seeing a physician and concern about finances. He does not usually use supplemental oxygen. He reports he is "always thin" and when asked about recent weight loss, he states "not more than normal". He also notes drinking "3 drinks" of vodka per day- reports a drink is a double shot. Has had withdrawal symptoms in past and is interested in detox. Discharge Summary-Simple/Stand Consultations Discharge Physical Examination Allergies: Coded Allergies: No Known Drug Allergies (Unverified , 08/05/18) Vitals & I&Os Vital Sign - Last 12Hours Date Time Temp Pulse Resp B/P (MAP) Pulse Ox O2 Delivery O2 Flow Rate FiO2 08/08/18 12:00 98.4 94 18 121/64 (83) 93 Room Air 08/07/18 15:55 1.00 Intake and Output 08/08/18 00:00 Intake Total 1730 ml Output Total 625 ml Balance 1105 ml General Appearance: Alert, No Acute Distress Respiratory: Clear to Auscultation, Normal Air Movement Cardiovascular: Regular Rate, No Murmurs Psych/Mental Status: Mental Status NL Hospital Course See final discharge diagnosis. Labs Laboratory Tests Test 08/06/18 21:22 08/07/18 06:34 Range/Units Troponin I < 0.028 <0.028 NG/ML White Blood Count 11.9 H 4.3-11.0 10^3/uL Red Blood Count 4.01 L 4.35-5.85 10^6/uL Hemoglobin 14.1 13.3-17.7 G/DL Hematocrit 41 40-54 % Mean Corpuscular Volume 103 H 80-99 FL Mean Corpuscular Hemoglobin 35 H 25-34 PG Mean Corpuscular Hemoglobin Concent 34 32-36 G/DL Red Cell Distribution Width 14.1 10.0-14.5 % Platelet Count 94 L 130-400 10^3/uL Mean Platelet Volume 9.2 7.4-10.4 FL Sodium Level 140 135-145 MMOL/L Potassium Level 4.0 3.6-5.0 MMOL/L Chloride Level 108 H 98-107 MMOL/L Carbon Dioxide Level 23 21-32 MMOL/L Anion Gap 9 5-14 MMOL/L Blood Urea Nitrogen 14 7-18 MG/DL Creatinine 0.64 0.60-1.30 MG/DL Estimat Glomerular Filtration Rate > 60 BUN/Creatinine Ratio 22 Glucose Level 128 H 70-105 MG/DL Calcium Level 7.9 L 8.5-10.1 MG/DL Radiology Reviewed CXR: IMPRESSION: 1. No acute cardiopulmonary findings. 2. COPD. 3. Chronic bilateral clavicle and left rib fractures. Discharge Instructions to patient/family Please see electronic discharge instructions given to patient. Discharge Medications Reviewed and agree with Discharge Medication list on patient's Discharge Inst ruction sheet Clinical Quality Measures DVT/VTE Risk/Contraindication: Risk Factor Score Per Nursin RFS Level Per Nursing on Admit: 3=High Other: see interventions for details RAFFY ELIZONDO MD Aug 08, 2018 12:43
--- NOTE | 2018-08-08 13:40 | NUR ---
PATIENT DECLINED LOVENOX HE WILL DISCHARGE TODAY.
[2018-08-08 14:40] VITALS: BP 121/64
--- NOTE | 2018-08-09 11:07 | Physician Query Clarification ---
PQ-Conflicting Diagnosis Admission/Discharge Admission Date: Aug 05, 2018 at 04:00 Discharge Date: Aug 08, 2018 at 14:40 The medical record reflects the following clinical scenario: History/Risk Factors: Emphysema COPD exac, Alcohol dependence Clinical Findings: Troponin 0.078, Minimal troponin elevation, likely type 2 CA due to COPD exacerbation Treatment: refrain from alcohol and tobacco and followup Question: Do you agree with the impression of the type [address] Pineda. Please document a response in Progress Note or Discharge Summary. 1. Yes 2. No 3. Other, with explanation of clinical findings 4. Clinically undetermined, no explanation for clinical findings. PHYSICIAN RESPONSE Do you agree w/Consulting Dx?: Yes Please remember a lack of response to the above will prompt a phone page by CDI/Coding staff. In responding to this query, please exercise your independent professional judgment. The purpose of this communication is to more accurately reflect the complexity of your patients condition. The fact that a question is asked does not imply that any particular answer is desired or expected. Thank you for your timely response to this clarification. Requestors name: Lupillo THIS PHYSICIAN QUERY FORM IS A PERMANENT PART OF THE MEDICAL RECORD [place] GA Aug 09, 2018 11:07 RAFFY ELIZONDO MD Aug 09, 2018 15:13
== END 2018-08-08 14:40 | disposition home or self-care (01) | DRG 190 ==
LOC: EDUNIT# 01:35 → ER 01:41 → 4TH 04:00
PROVIDERS: ADMIT Internal Medicine; ATTEND Family Medicine
DX: J43.9 Emphysema, unspecified (principal); I21.A1 Myocardial infarction type 2; R09.02 Hypoxemia; D69.6 Thrombocytopenia, unspecified; R63.4 Abnormal weight loss; R53.1 Weakness; F10.20 Alcohol dependence, uncomplicated; F17.210 Nicotine dependence, cigarettes, uncomplicated; D75.89 Other specified diseases of blood and blood-forming organs; R74.8 Abnormal levels of other serum enzymes; E83.42 Hypomagnesemia; K21.9 Gastro-esophageal reflux disease without esophagitis; K22.70 Barrett's esophagus without dysplasia; M19.91 Primary osteoarthritis, unspecified site; M81.0 Age-related osteoporosis without current pathological fracture; M54.9 Dorsalgia, unspecified; F41.9 Anxiety disorder, unspecified; F43.10 Post-traumatic stress disorder, unspecified; F31.9 Bipolar disorder, unspecified; F60.9 Personality disorder, unspecified; Z86.718 Personal history of other venous thrombosis and embolism; Z91.19 Patient's noncompliance with other medical treatment and regimen; Z86.010 Personal history of colon polyps; Z87.11 Personal history of peptic ulcer disease
CPT/HCPCS: 36415; 71045; 71275; 80048; 80053; 80074; 82607; 82746; 83735; 84484; 85025; 85027; 86141; 90471; 93005; 93306; 94640; 94760; 96361; 96374

== ENCOUNTER 2018-08-20 04:57 | Emergency (ER) | payer SELFPAY ==
[~2018-08-20] VITALS: Ht 162.6 cm; Wt 45.4 kg
[~2018-08-20 04:57] MED LIST changes: +ACET-93 PO; +MULT-974 PO; +RT-ALBUINH INH; +TIOT4MIS2 IH
[2018-08-20] MEDS ORDERED: NS IV 1000 ML 1,000 ML IV ONE (05:11)
[2018-08-20] MEDS ORDERED: RT-ALBUTEROL/IPRATROPIUM 3 ML (DUONEB) VIAL INH ONE ×2 (05:15→10:45)
[2018-08-20 05:25] LABS: BASOPHILS % (AUTO) 1 % (0-10); EOSINOPHILS % (AUTO) 0 % (0-10); HEMATOCRIT 46 % (40-54); HEMOGLOBIN 16.3 G/DL (13.3-17.7); LYMPHOCYTES # (AUTO) 1.3 X 10^3 (1.0-4.0); LYMPHOCYTES % (AUTO) 15 % (12-44); MEAN CORPUSCULAR HEMOGLOBIN 37 PG (25-34); MEAN CORPUSCULAR HGB CONC 36 G/DL (32-36); MEAN CORPUSCULAR VOLUME 103 FL (80-99); MEAN PLATELET VOLUME 9.4 FL (7.4-10.4); MONOCYTES # (AUTO) 0.8 X 10^3 (0.0-1.0); MONOCYTES % (AUTO) 9 % (0-12); NEUTROPHILS # (AUTO) 6.3 X 10^3 (1.8-7.8); NEUTROPHILS % (AUTO) 75 % (42-75); PLATELET COUNT 140 10^3/uL (130-400); RED CELL DISTRIBUTION WIDTH 15.6 % (10.0-14.5); WHITE BLOOD COUNT 8.4 10^3/uL (4.3-11.0)
[2018-08-20 05:33] LABS: FIBRIN DEGRADATION PRODUCTS 2.64 UG/ML (0.00-0.49); INR 0.8 (0.8-1.4); PROTHROMBIN TIME PATIENT 11.9 SEC (12.2-14.7)
[2018-08-20 05:39] LABS: ALANINE AMINOTRANSFERASE 25 U/L (0-55); ALBUMIN 4.1 GM/DL (3.2-4.5); ALKALINE PHOSPHATASE 94 U/L (40-136); BILIRUBIN,TOTAL 0.4 MG/DL (0.1-1.0); BUN/CREATININE RATIO 20; CARBON DIOXIDE 26 MMOL/L (21-32); CHLORIDE 102 MMOL/L (98-107); CREATININE SERUM 0.74 MG/DL (0.60-1.30); GFR ESTIMATED > 60; GLUCOSE 127 MG/DL (70-105); POTASSIUM 3.6 MMOL/L (3.6-5.0); SODIUM 143 MMOL/L (135-145); TOTAL PROTEIN 6.6 GM/DL (6.4-8.2)
--- NOTE | 2018-08-20 05:51 | NUR ---
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 VALENTE, RADIOLOGIST WITH [facility], AND WAS NOTIFIED THAT CT HEAD WAS NEGATIVE. DR. OLIVA IN PROCEDURE WITH ANOTHER PT AT THIS TIME AND NOTIFIED OF RESULTS. NO FURTHER ORDERS AT THIS TIME.
[2018-08-20 05:52] LABS: BILIRUBIN,URINE NEGATIVE (NEGATIVE); CLARITY,URINE CLEAR; COLOR,URINE YELLOW; GLUCOSE, URINE (UA) NEGATIVE (NEGATIVE); KETONES,URINE 2+ (NEGATIVE); LEUKOCYTE ESTERASE ,URINE NEGATIVE (NEGATIVE); NITRITE,URINE NEGATIVE (NEGATIVE); PH,URINE 5 (5-9); PROTEIN,URINE 4+ (NEGATIVE); UROBILINOGEN,URINE 4 MG/DL (NORMAL)
[2018-08-20 06:05] LABS: BACTERIA,URINE TRACE /HPF; RBC,URINE 0-2 /HPF; SQUAMOUS EPITHELIAL CELL,UR 0-2 /HPF; WBC,URINE 0-2 /HPF
--- NOTE | 2018-08-20 06:53 | ED Neurological Problem ---
General Chief Complaint: Neuro-Stroke Like Symptoms Stated Complaint: LEFT SIDED WEAKNESS, STRKE LIKE SYMPTOMS Nursing Triage Note: TO ED [facility] WITH C/O NUMBNESS TO LEFT ARM AND LEFT LEG X12 HOURS APPROX. STATES HE JUST TRIED TO LAY DOWN AND REST, BUT IT DID NOT GET BETTER. STATES DRINKS ALCOHOL DAILY (3-4 DRINKS), HAS BEEN HAVING HEADACHES WHICH IS NORMAL FOR HIM. HAS HX OF BLOOD CLOTS IN BILATERAL LEGS AND STARTED ON XARELTO YESTERDAY. Nursing Sepsis Screen: No Definite Risk Source: patient, EMS Exam Limitations: no limitations (BRANDY OLIVA MD) History of Present Illness Date Seen by Provider: Aug 20, 2018 Time Seen by Provider: 04:53 Initial Comments This 58-year-old gentleman presents to the emergency room via EMS with complaints of left-sided numbness and weakness in the upper and lower extremity since yesterday around 15:00. He is able to ambulate but with some difficulty. He also states he has a headache which is not unusual for him. He presently takes Xarelto for lower extremity DVT. EMS notes oxygen is 90 percent on room room air during their assessment. They also note some crackles in the bases. Patient has had some cough recently but denies fever. Stroke activation was paged on patient's arrival. (BRANDY OLIVA MD) Allergies and Home Medications Allergies Coded Allergies: No Known Drug Allergies (Unverified , 08/05/18) Home Medications Acetaminophen 500 Mg Tablet, 1,000 MG PO Q6H PRN for PAIN-MILD, (Reported) Albuterol Sulfate 6.7 Gm Hfa.aer.ad, 2 PUFF INH Q4H Prescribed by: RAFYF ELIZONDO on 08/08/18 1237 Multivitamin 1 Each Tablet, 1 TAB PO DAILY, (Reported) Prednisone 10 Mg Tab, 0 PO UD Take 5 tabs(50mg)daily, decrease by 1 tab(10mg) every other day. Prescribed by: RAFFY ELIZONDO on 08/08/18 1237 Tiotropium Dime Box 4 Gm Mist.inhal, 2 PUFF IH DAILY Prescribed by: RAFFY ELIZONDO on 08/08/18 1237 Patient Home Medication List Home Medication List Reviewed: Yes (BRANDY OLIVA MD) Review of Systems Review of Systems Constitutional: no symptoms reported Eyes: No Symptoms Reported Ears, Nose, Mouth, Throat: no symptoms reported Respiratory: see HPI Cardiovascular: no symptoms reported Gastrointestinal: no symptoms reported Genitourinary: no symptoms reported Musculoskeletal: see HPI Skin: no symptoms reported Psychiatric/Neurological: See HPI Endocrine: No Symptoms Reported Hematologic/Lymphatic: No Symptoms Reported (BRANDY OLIVA MD) Past Cjrweof-Fmxgde-Mkjxmf Hx Past Med/Social Hx: Reviewed Nursing Past Med/Soc Hx (BRANDY OLIVA MD) Patient Social History Alcohol Use: Regular Use Number of Drinks Today: FF Alcohol Beverage of Choice: Beer, Vodka Recreational Drug Use: No Type Used: Cigarettes Recent Foreign Travel: No Contact w/Someone Who Travel: No Recent Infectious Disease Expo: No Recent Hopitalizations: No (BRANDY OLIVA MD) Immunizations Up To Date Tetanus Booster (TDap): Unknown Date of Pneumonia Vaccine: Sep 07, 2011 Date of Influenza Vaccine: Oct 22, 2016 (BRANDY OLIVA MD) Seasonal Allergies Seasonal Allergies: No (BRANDY OLIVA MD) Past Medical History Surgeries: Yes Orthopedic Respiratory: Yes Asthma, COPD, Emphysema Currently Using CPAP: No Currently Using BIPAP: No Cardiac: Yes (HYPOTENSION; MULTIPLE DVT'S =--NON COMPLIANT WITH ANTICOAGULANTS) Deep Vein Thrombosis Neurological: No Reproductive Disorders: No Genitourinary: No Gastrointestinal: Yes Gastroesophageal Reflux, Wallis's Esophagus, Polyps, Ulcer Musculoskeletal: Yes Osteoporosis, Arthritis, Back Injury, Chronic Back Pain, Fractures Endocrine: No HEENT: No Cancer: No Psychosocial: Yes Anxiety, PTSD, Bipolar, Personality Disorder, Depression Integumentary: No Blood Disorders: Yes (MULTIPLE DVT'S ) Adverse Reaction/Blood Tranf: No (BRANDY OLIVA MD) Family Medical History Asthma 19 MOTHER Cardiovascular disease G8 SISTER (blood clots) Colon cancer 19 MOTHER (polyps/hiatal hernia) Congenital disease 19 MOTHER (nuerogenic syncope) Neoplasm No Pertinent Family Hx, Asthma, Cancer, DVT/PE (BRANDY OLIVA MD) Physical Exam Vital Signs Vital Signs - First Documented 08/20/18 08/20/18 04:59 09:39 Temp 98.5 Pulse 128 Resp 18 B/P (MAP) 125/90 (102) Pulse Ox 98 O2 Delivery Nasal Cannula O2 Flow Rate 4.00 (TRUDY STERLING MD) Vital Signs Capillary Refill : Less Than 3 Seconds (BRANDY OLIVA MD) Height, Weight, BMI Height: 5'4.00" Weight: 100lbs. oz. 45.155103xl; 17.2 BMI Method:Stated General Appearance: WD/WN, no apparent distress HEENT: PERRL/EOMI, normal ENT inspection, pharynx normal Neck: normal inspection Respiratory: no respiratory distress, no accessory muscle use, wheezing Cardiovascular: no murmur, tachycardia (regular) Gastrointestinal: normal bowel sounds, non tender, soft Extremities: normal inspection, no pedal edema Neurologic/Psychiatric: supervisor inspection room II-XII nml as tested, alert, normal mood/affect, oriented x 3, motor weakness (drift in the left upper and lower extremity) Crainal Nerves: normal hearing, normal speech, PERRL Coordination/Gait: normal finger to nose Motor/Sensory: no sensory deficit, weak motor strength LUE, weak motor strength LLE Skin: normal color, warm/dry (BRANDY OLIVA MD) Stroke NIH Stroke Scale Assessment Level of Consciousness: 0=Alert (0), Level of Consciousness-Questions: 0=Answers both month/age (0), LOC Commands: 0=Performs both tasks (0), Visual Dale: 0=No visual loss (0), Facial Movement (Facial Paresis): 0=Normal symmetrical mnt (0), Motor Function-Arms Right: 0=No drift (0), Motor Function-Arms Left: 1=Drift (1), Motor Function-Legs Right: 0=No drift (0), Motor Function-Legs Left: 1=Drift (1), Limb Ataxia: 0=Absent (0), Sensory: 0=Normal:no loss (0), Best Language: 0=No aphasia (0), Dysarthria: 0=Normal (0), Extinction & Inattention: 0=No abnormality (0), Total: 2 Focused Exam Lactate Level 08/20/18 05:03: Lactic Acid Level 1.49 (TRUDY STERLING MD) Lactic Acid Level Laboratory Tests Test 08/20/18 05:03 Lactic Acid Level 1.49 MMOL/L (0.50-2.00) (TRUDY STERLING MD) Progress/Results/Core Measures Results/Orders Lab Results Laboratory Tests Test 08/20/18 05:03 08/20/18 05:16 08/20/18 05:43 Range/Units White Blood Count 8.4 4.3-11.0 10^3/uL Red Blood Count 4.43 4.35-5.85 10^6/uL Hemoglobin 16.3 13.3-17.7 G/DL Hematocrit 46 40-54 % Mean Corpuscular Volume 103 H 80-99 FL Mean Corpuscular Hemoglobin 37 H 25-34 PG Mean Corpuscular Hemoglobin Concent 36 32-36 G/DL Red Cell Distribution Width 15.6 H 10.0-14.5 % Platelet Count 140 130-400 10^3/uL Mean Platelet Volume 9.4 7.4-10.4 FL Neutrophils (%) (Auto) 75 42-75 % Lymphocytes (%) (Auto) 15 12-44 % Monocytes (%) (Auto) 9 0-12 % Eosinophils (%) (Auto) 0 0-10 % Basophils (%) (Auto) 1 0-10 % Neutrophils # (Auto) 6.3 1.8-7.8 X 10^3 Lymphocytes # (Auto) 1.3 1.0-4.0 X 10^3 Monocytes # (Auto) 0.8 0.0-1.0 X 10^3 Eosinophils # (Auto) 0.0 0.0-0.3 10^3/uL Basophils # (Auto) 0.0 0.0-0.1 10^3/uL Prothrombin Time 11.9 L 12.2-14.7 SEC INR Comment 0.8 0.8-1.4 Activated Partial Thromboplast Time 28 24-35 SEC D-Dimer 2.64 H 0.00-0.49 UG/ML Sodium Level 143 135-145 MMOL/L Potassium Level 3.6 3.6-5.0 MMOL/L Chloride Level 102 98-107 MMOL/L Carbon Dioxide Level 26 21-32 MMOL/L Anion Gap 15 H 5-14 MMOL/L Blood Urea Nitrogen 15 7-18 MG/DL Creatinine 0.74 0.60-1.30 MG/DL Estimat Glomerular Filtration Rate > 60 BUN/Creatinine Ratio 20 Glucose Level 127 H 70-105 MG/DL Lactic Acid Level 1.49 0.50-2.00 MMOL/L Calcium Level 9.0 8.5-10.1 MG/DL Corrected Calcium 8.9 8.5-10.1 MG/DL Total Bilirubin 0.4 0.1-1.0 MG/DL Aspartate Amino Transf (AST/SGOT) 31 5-34 U/L Alanine Aminotransferase (ALT/SGPT) 25 0-55 U/L Alkaline Phosphatase 94 40-136 U/L Troponin I < 0.028 <0.028 NG/ML Total Protein 6.6 6.4-8.2 GM/DL Albumin 4.1 3.2-4.5 GM/DL Serum Alcohol 155 H <10 MG/DL Glucometer 121 H 70-110 MG/DL Urine Color YELLOW Urine Clarity CLEAR Urine pH 5 5-9 Urine Specific [place] 1.025 H 1.016-1.022 Urine Protein 4+ NEGATIVE Urine Glucose (UA) NEGATIVE NEGATIVE Urine Ketones 2+ H NEGATIVE Urine Nitrite NEGATIVE NEGATIVE Urine Bilirubin NEGATIVE NEGATIVE Urine Urobilinogen 4 H NORMAL MG/DL Urine Leukocyte Esterase NEGATIVE NEGATIVE Urine RBC (Auto) 1+ H NEGATIVE Urine RBC 0-2 /HPF Urine WBC 0-2 /HPF Urine Squamous Epithelial Cells 0-2 /HPF Urine Crystals NONE /LPF Urine Bacteria TRACE /HPF Urine Casts NONE /LPF Urine Mucus SMALL H /LPF Urine Culture Indicated CULTURE PENDING (TRUDY STERLING MD) My Orders Orders - TRUDY STERLING MD Albuterol/Ipra Inhalation Soln (Duoneb I (08/20/18 10:45) Ed Iv/Invasive Line Start (08/20/18 10:32) Ns Iv 500 Ml (Sodium Chloride 0.9%) (08/20/18 10:32) Svn Small Volume Nebulizer (08/20/18 10:32) Rivaroxaban Tablet (Xarelto Tablet) (08/20/18 11:45) (TRUDY STERLING MD) Medications Given in ED Current Medications Medications Dose Ordered Sig/Arabella Route Start Time Stop Time Status Last Admin Dose Admin Albuterol/ Ipratropium 3 ml ONCE ONCE INH 08/20/18 05:15 08/20/18 05:16 DC 08/20/18 05:44 3 ML Albuterol/ Ipratropium 3 ml ONCE ONCE INH 08/20/18 10:45 08/20/18 10:46 DC 08/20/18 11:39 3 ML Iohexol 100 ml ONCE ONCE IV 08/20/18 07:30 08/20/18 07:31 DC 08/20/18 07:24 75 ML Sodium Chloride 100 ml ONCE ONCE IV 08/20/18 07:30 08/20/18 07:31 DC 08/20/18 07:24 80 ML Sodium Chloride 500 ml @ 0 mls/hr Q0M ONCE IV 08/20/18 10:32 08/20/18 10:34 DC 08/20/18 10:38 500 MLS/HR Sodium Chloride 1,000 ml @ 0 mls/hr Q0M ONCE IV 08/20/18 05:11 08/20/18 05:14 DC 08/20/18 05:38 999 MLS/HR (TRUDY STERLING MD) Vital Signs/I&O 08/20/18 08/20/18 08/20/18 08/20/18 04:59 09:39 11:19 11:39 Temp 98.5 Pulse 128 80 86 Resp 18 18 18 B/P (MAP) 125/90 (102) 113/80 (91) 109/75 (86) Pulse Ox 98 93 96 O2 Delivery Nasal Cannula Room Air Room Air O2 Flow Rate 4.00 (TRUDY STERLING MD) Blood Pressure Mean: 102 FSBG Bedside Testing Finger Stick Blood Glucose: 121 Blood Glucose Action Taken: rn notified (BRANDY OLIVA MD) Progress Progress Note : Time: 06:57 Progress Note Stroke activation was paged. The stroke and sepsis workups were initiated. Patient received a DuoNeb treatment for his wheezing. A liter of IV fluid was infused. CT of the head was obtained and reviewed with the [facility] radiologist. No acute abnormalities were appreciated. Further workup is pending including CT angiogram. Care of this patient is being transitioned to Dr. Sterling. (BRANDY OLIVA MD) Progress Note : Progress Note 0735: I have reevaluated the patient. He does have minor all 4 extremities although appears to be slightly weak on the left. He is still reporting decreased sensation on the left. CT angiogram of the head and neck has been ordered and is pending. Monitor patient. 0815: Care transferred to Dr. BRADSHAW pending CT scan. 1005: CT scan completed. No acute findings except for question of thyroid mass that can be evaluated nonemergent. We will get a breathing treatment and see how he does with that. Overall he is moving all extremities well and does not appear to have any limitations. He states he feels like he might be slightly weak on the left but this is not noted on exam. Monitor patient. 1155: Patient did have improvement overall. I discussed the case with Dr. Li. They will see him in clinic on at 10:20 AM. This was discussed with the patient who agrees. Discharged home with return precautions. Patient verbalize understanding instructions and agreement with plan. (TRUDY STERLING MD) Initial ECG Impression Date: Aug 20, 2018 Initial ECG Impression Time: 05:15 Initial ECG Rate: 126 Initial ECG Rhythm: S.Tach Initial ECG Intervals: Normal Initial ECG Impression: Normal Comment Sinus tachycardia with no ST elevation or depression. No abnormal intervals or axis deviation. (BRANDY OLIVA MD) Diagnostic Imaging Diagonstic Imaging: Xray Plain Films/CT/US/NM/MRI: chest Comments Chest x-ray viewed by me. Report not yet available. There are numerous old rib and clavicle fractures. Hyperinflation consistent with COPD. No other acute abnormalities appreciated. Diagonstic Imaging: CT Plain Films/CT/US/NM/MRI: head Comments CT head report reviewed from [facility]. No acute abnormalities appreciated. (BRANDY OLIVA MD) Diagonstic Imaging: CT Plain Films/CT/US/NM/MRI: head, other Comments NAME: KACI HILTON [facility] REC#: [id number] PT STATUS: REG ER : 1960 PHYSICIAN: BRANDY OLIVA MD ADMIT DATE: 08/20/18/ER Signed Date of Exam: 08/20/18 CT ANGIO HEAD/NECK PROCEDURE: CT angiography of the head and CT angiography of the neck with and without contrast. TECHNIQUE: Contiguous noncontrast images were obtained from the skull base through the vertex. After intravenous contrast administration, helical CT angiography of the neck was performed. Source data was reformatted into multiple MIP projections. Delayed post contrast acquisition was also obtained. Auto Exposure Controls were utilized during the CT exam to meet ALARA standards for radiation dose reduction. INDICATION: Weakness, cough, congestion, and left arm and leg numbness with onset 12 hours ago. CORRELATION STUDY: None. FINDINGS: The aortic arch is incompletely imaged. The visualized portion of the brachiocephalic trunk appears unremarkable. The left common carotid origin is not visualized. The visualized common carotid arteries are widely patent. Minimal calcification of the carotid bifurcations. The internal and external carotid arteries are patent. Posteriorly, there is a dominant left vertebral artery. The vertebral arteries appear patent with both terminating at the level of the basilar artery. There is rather significant heterogeneous contrast filling of the visualized intracranial ICAs. This appears relatively symmetric; however, small clots could easily go undetected. The bilateral middle cerebral arteries appear to be patent. The anterior cerebral arteries are patent. The posterior circulation demonstrates the posterior cerebral arteries to be patent. The dural venous system is patent. Post contrast imaging demonstrates no abnormal areas of intracranial enhancement. The low-density mass in the left lobe of the thyroid gland is unremarkable. Rather significantly advanced emphysematous changes about the lung apices. Likely surgical change in the right lung apex. IMPRESSION: 1. CTA of the [place] demonstrates no evidence to suggest a large vessel occlusion. 2. CTA of the neck demonstrates no significant stenosis or flow limitations. 3. Incidental note is made of a low-density heterogeneous mass in the left lobe of the thyroid gland. Correlation with nonemergent thyroid ultrasound imaging. Dictated by: Dictated on workstation # [id number] Dict: 08/20/18820 Trans: 08/20/18942 Interpreted by: KENDRA ROBLERO DO Electronically signed by: KENDRA ROBLERO DO 08/20/18942 (TRUDY STERLING MD) Departure Impression Primary Impression: Left-sided weakness Disposition: 01 HOME, SELF-CARE Condition: Improved Departure-Patient Inst. Decision time for Depature: 11:57 (TRUDY STERLING MD) Referrals: [facility] (PCP) Primary Care Physician RIC LI MD (Family) Primary Care Physician Patient Instructions: Transient Ischemic Attack (DC) Add. Discharge Instructions: All discharge instructions reviewed with patient and/or family. Voiced understanding. Continue home medications as previously prescribed. Follow-up with the clinic on at 10:20 AM with Maryana as scheduled. Return for worse pain, fever, vomiting, weakness, breathing problems or other concerns as needed. Continue to drink plenty of fluids and eat a normal diet. Decrease alcohol intake. BRANDY OLIVA MD Aug 20, 2018 06:53 TRUDY STERLING MD Aug 20, 2018 10:31
--- NOTE | 2018-08-20 06:55 | Diagnostic Imaging Report ---
INDICATION: Weakness, coughing congestion.. TECHNIQUE: Single view chest 5:14 AM. CORRELATION STUDY: 08/05/2018 FINDINGS: The heart size, mediastinal configuration and pulmonary vascularity are within normal limits. Lung avery hyperinflated with changes reflecting COPD. Suture line of the right lung apex. Displaced bilateral superior rib and clavicle fractures are present. IMPRESSION: 1. Stable chest demonstrates no acute abnormality. Findings of COPD. Dictated by: Dictated on workstation # [id number]
--- NOTE | 2018-08-20 07:12 | NUR ---
TO CT PER CART.
--- NOTE | 2018-08-20 07:20 | Diagnostic Imaging Report ---
PROCEDURE: CT head wo r/o stroke. TECHNIQUE: Multiple contiguous axial images were obtained through the brain without the use of intravenous contrast. Auto Exposure Controls were utilized during the CT exam to meet ALARA standards for radiation dose reduction. INDICATION: Weakness, cough and congestion. Left arm and leg numbness onset 12 hours ago. CORRELATION STUDY: 03/23/2017 FINDINGS: Ventricles and sulci appearing unremarkable. Slight asymmetry likely normal variant. No abnormal areas of decreased attenuation suggest edema. No midline shift or mass effect. No intracranial hemorrhage. No midline shift. Basal cisterns maintained. Bony calvarium intact. Probable cyst or polyp of left maxillary sinus. IMPRESSION: 1. Negative for acute intracranial abnormality. A preliminary report was provided by [facility]. Dictated by: Dictated on workstation # [id number]
[2018-08-20] MEDS ORDERED: NS 100 ML (IVPB) BAG IV ONE (07:30)
[2018-08-20] MEDS ORDERED: HOLD METFORMIN - RECEIVED CONTRAST 20 ML VIAL IV SCH (07:30)
[2018-08-20] MEDS ORDERED: IOHEXOL 350 MG/ML 100 ML (OMNIPAQUE 350) VIAL IV ONE (07:30)
--- NOTE | 2018-08-20 08:48 | Diagnostic Imaging Report ---
PROCEDURE: CT angiography of the head and CT angiography of the neck with and without contrast. TECHNIQUE: Contiguous noncontrast images were obtained from the skull base through the vertex. After intravenous contrast administration, helical CT angiography of the neck was performed. Source data was reformatted into multiple MIP projections. Delayed post contrast acquisition was also obtained. Auto Exposure Controls were utilized during the CT exam to meet ALARA standards for radiation dose reduction. INDICATION: Weakness, cough, congestion, and left arm and leg numbness with onset 12 hours ago. CORRELATION STUDY: None. FINDINGS: The aortic arch is incompletely imaged. The visualized portion of the brachiocephalic trunk appears unremarkable. The left common carotid origin is not visualized. The visualized common carotid arteries are widely patent. Minimal calcification of the carotid bifurcations. The internal and external carotid arteries are patent. Posteriorly, there is a dominant left vertebral artery. The vertebral arteries appear patent with both terminating at the level of the basilar artery. There is rather significant heterogeneous contrast filling of the visualized intracranial ICAs. This appears relatively symmetric; however, small clots could easily go undetected. The bilateral middle cerebral arteries appear to be patent. The anterior cerebral arteries are patent. The posterior circulation demonstrates the posterior cerebral arteries to be patent. The dural venous system is patent. Post contrast imaging demonstrates no abnormal areas of intracranial enhancement. The low-density mass in the left lobe of the thyroid gland is unremarkable. Rather significantly advanced emphysematous changes about the lung apices. Likely surgical change in the right lung apex. IMPRESSION: 1. CTA of the [place] demonstrates no evidence to suggest a large vessel occlusion. 2. CTA of the neck demonstrates no significant stenosis or flow limitations. 3. Incidental note is made of a low-density heterogeneous mass in the left lobe of the thyroid gland. Correlation with nonemergent thyroid ultrasound imaging. Dictated by: Dictated on workstation # [id number]
[2018-08-20 09:39] VITALS: BP 113/80
[2018-08-20] MEDS ORDERED: NS IV 500 ML 500 ML IV ONE (10:32)
[2018-08-20 11:19] VITALS: BP 109/75
[2018-08-20] MEDS ORDERED: RIVAROXABAN 20 MG TABLET (XARELTO) PO ONE (11:45)
--- NOTE | 2018-08-20 12:10 | NUR ---
PATIENT MOVING L SIDE WITH PROBLEM
[2018-08-20 12:12] VITALS: BP 121/9
== END 2018-08-20 12:28 | disposition home or self-care (01) ==
LOC: EDUNIT# 04:57 → ER 04:59
DX: R53.1 Weakness (principal); J43.9 Emphysema, unspecified; J45.909 Unspecified asthma, uncomplicated; K21.9 Gastro-esophageal reflux disease without esophagitis; M81.0 Age-related osteoporosis without current pathological fracture; F31.9 Bipolar disorder, unspecified; F43.10 Post-traumatic stress disorder, unspecified; F41.9 Anxiety disorder, unspecified; F60.9 Personality disorder, unspecified; Z79.01 Long term (current) use of anticoagulants; Z86.718 Personal history of other venous thrombosis and embolism; Z86.010 Personal history of colon polyps; Z87.19 Personal history of other diseases of the digestive system; Z82.49 Family history of ischemic heart disease and other diseases of the circulatory system; Z80.0 Family history of malignant neoplasm of digestive organs
CPT/HCPCS: 36415; 70450; 70496; 70498; 71045; 80053; 80320; 81000; 82962; 83605; 84484; 85025; 85379; 85610; 85730; 87040; 87088; 93005; 93041; 94640; 96360; 96361

== ENCOUNTER 2018-09-19 09:10 | Emergency (ER) | payer SELFPAY ==
[~2018-09-19] VITALS: Ht 170.2 cm; Wt 45.4 kg
[2018-09-19 10:31] LABS: BASOPHILS # (AUTO) 0.1 10^3/uL (0.0-0.1); BASOPHILS % (AUTO) 1 % (0-10); EOSINOPHILS % (AUTO) 0 % (0-10); HEMATOCRIT 41 % (40-54); HEMOGLOBIN 14.7 G/DL (13.3-17.7); LYMPHOCYTES # (AUTO) 1.3 X 10^3 (1.0-4.0); LYMPHOCYTES % (AUTO) 17 % (12-44); MEAN CORPUSCULAR HEMOGLOBIN 37 PG (25-34); MEAN CORPUSCULAR HGB CONC 36 G/DL (32-36); MEAN CORPUSCULAR VOLUME 103 FL (80-99); MEAN PLATELET VOLUME 9.8 FL (7.4-10.4); MONOCYTES % (AUTO) 13 % (0-12); NEUTROPHILS # (AUTO) 5.1 X 10^3 (1.8-7.8); NEUTROPHILS % (AUTO) 69 % (42-75); PLATELET COUNT 116 10^3/uL (130-400); RED CELL DISTRIBUTION WIDTH 16.5 % (10.0-14.5); WHITE BLOOD COUNT 7.4 10^3/uL (4.3-11.0)
--- NOTE | 2018-09-19 11:28 | ED General ---
General Chief Complaint: Chest Wall Stated Complaint: CHEST PAIN Source of Information: Patient Exam Limitations: No Limitations History of Present Illness Date Seen by Provider: Sep 19, 2018 Time Seen by Provider: 09:30 Initial Comments 58-year-old white male presents with chest discomfort and chills. Patient is concerned that he has an upper respiratory infection. The patient has had productive cough and symptoms for the past 2-4 weeks. Patient states this is similar to but worse than his normal episodes of bronchitis. Patient has required antibiotics and steroids in the past for these episodes. The patient plans on following up with count includes the [facility]. Allergies and Home Medications Allergies Coded Allergies: No Known Drug Allergies (Unverified , 08/05/18) Home Medications Acetaminophen 500 Mg Tablet, 1,000 MG PO Q6H PRN for PAIN-MILD, (Reported) Albuterol Sulfate 6.7 Gm Hfa.aer.ad, 2 PUFF INH Q4H Prescribed by: RAFFY ELIZONDO on 08/08/18 1237 Multivitamin 1 Each Tablet, 1 TAB PO DAILY, (Reported) Prednisone 10 Mg Tab, 0 PO UD Take 5 tabs(50mg)daily, decrease by 1 tab(10mg) every other day. Prescribed by: RAFFY ELIZONDO on 08/08/18 1237 Tiotropium [place] 4 Gm Mist.inhal, 2 PUFF IH DAILY Prescribed by: RAFFY ELIZONDO on 08/08/18 1237 Patient Home Medication List Home Medication List Reviewed: Yes Review of Systems Review of Systems Constitutional: see HPI, fever EENTM: No ear discharge, No epistaxis, No throat pain Respiratory: see HPI, cough, dyspnea on exertion, phlegm, short of breath (yellow) Cardiovascular: No chest pain (patient denies pressure-type chest pain), No palpitations Gastrointestinal: No abdominal pain, No constipation, No nausea, No vomiting Genitourinary: No decreased output, No dysuria, No frequency Musculoskeletal: No back pain Skin: No change in color, No rash Psychiatric/Neurological: No Symptoms Reported Hematologic/Lymphatic: No Symptoms Reported Immunological/Allergic: no symptoms reported Past Ofjweuz-Antzct-Tsjojo Hx Past Med/Social Hx: Reviewed Nursing Past Med/Soc Hx Patient Social History Alcohol Beverage of Choice: Beer, Vodka Type Used: Cigarettes Recent Hopitalizations: No Immunizations Up To Date Tetanus Booster (TDap): Unknown Date of Pneumonia Vaccine: Sep 07, 2011 Date of Influenza Vaccine: Oct 22, 2016 Seasonal Allergies Seasonal Allergies: No Past Medical History Surgeries: Yes Orthopedic Respiratory: Yes Asthma, COPD, Emphysema Currently Using CPAP: No Currently Using BIPAP: No Cardiac: Yes (HYPOTENSION; MULTIPLE DVT'S =--NON COMPLIANT WITH ANTICOAGULANTS) Deep Vein Thrombosis Neurological: No Reproductive Disorders: No Genitourinary: No Gastrointestinal: Yes Gastroesophageal Reflux, Wallis's Esophagus, Polyps, Ulcer Musculoskeletal: Yes Osteoporosis, Arthritis, Back Injury, Chronic Back Pain, Fractures Endocrine: No HEENT: No Cancer: No Psychosocial: Yes Anxiety, PTSD, Bipolar, Personality Disorder, Depression Integumentary: No Blood Disorders: Yes (MULTIPLE DVT'S ) Adverse Reaction/Blood Tranf: No Family Medical History Asthma 19 MOTHER Cardiovascular disease G8 SISTER (blood clots) Colon cancer 19 MOTHER (polyps/hiatal hernia) Congenital disease 19 MOTHER (nuerogenic syncope) Neoplasm No Pertinent Family Hx, Asthma, Cancer, DVT/PE Physical Exam Vital Signs Vital Signs - First Documented 09/19/18 09:30 Temp 98.0 Pulse 105 Resp 18 B/P (MAP) 118/76 (90) Pulse Ox 97 O2 Delivery Nasal Cannula O2 Flow Rate 2.00 Capillary Refill : Height, Weight, BMI Height: 5'4.00" Weight: 100lbs. oz. [id number]; 17.2 BMI Method:Stated General Appearance: No Apparent Distress, Cachetic Eyes: Bilateral Eye Normal Inspection HEENT: Normal ENT Inspection Neck: Normal Inspection Respiratory: No Respiratory Distress, Decreased Breath Sounds, Wheezing (scattered) Cardiovascular: Regular Rate, Rhythm, No Edema, No Murmur Gastrointestinal: Normal Bowel Sounds, Soft Back: Normal Inspection, No CVA Tenderness Extremity: Normal Capillary Refill, Normal Inspection Neurologic/Psychiatric: Oriented x3, No Motor/Sensory Deficits, Normal Mood/Affect Skin: Normal Color, Warm/Dry, Rash Progress/Results/Core Measures Suspected Sepsis SIRS Temperature: Pulse: Respiratory Rate: Laboratory Tests 09/19/18 09:15: White Blood Count 7.4 Blood Pressure / Mean: Laboratory Tests 09/19/18 09:15: Platelet Count 116L Results/Orders Lab Results Laboratory Tests Test 09/19/18 09:15 Range/Units White Blood Count 7.4 4.3-11.0 10^3/uL Red Blood Count 3.99 L 4.35-5.85 10^6/uL Hemoglobin 14.7 13.3-17.7 G/DL Hematocrit 41 40-54 % Mean Corpuscular Volume 103 H 80-99 FL Mean Corpuscular Hemoglobin 37 H 25-34 PG Mean Corpuscular Hemoglobin Concent 36 32-36 G/DL Red Cell Distribution Width 16.5 H 10.0-14.5 % Platelet Count 116 L 130-400 10^3/uL Mean Platelet Volume 9.8 7.4-10.4 FL Neutrophils (%) (Auto) 69 42-75 % Lymphocytes (%) (Auto) 17 12-44 % Monocytes (%) (Auto) 13 H 0-12 % Eosinophils (%) (Auto) 0 0-10 % Basophils (%) (Auto) 1 0-10 % Neutrophils # (Auto) 5.1 1.8-7.8 X 10^3 Lymphocytes # (Auto) 1.3 1.0-4.0 X 10^3 Monocytes # (Auto) 1.0 0.0-1.0 X 10^3 Eosinophils # (Auto) 0.0 0.0-0.3 10^3/uL Basophils # (Auto) 0.1 0.0-0.1 10^3/uL My Orders Orders - MARVIN DELAROSA MD Chest Pa/Lat (2 View) (09/19/18 10:23) Cbc With Automated Diff (09/19/18 10:23) Blood Culture (09/19/18 10:23) Lactic Acid Analyzer (09/19/18 10:23) Ekg Tracing (09/19/18 11:08) Vital Signs/I&O 09/19/18 09:30 Temp 98.0 Pulse 105 Resp 18 B/P (MAP) 118/76 (90) Pulse Ox 97 O2 Delivery Nasal Cannula O2 Flow Rate 2.00 Capillary Refill : Progress Note : Time: 11:30 Progress Note Patient's chest x-ray failed to demonstrate evidence of an infiltrate. Patient's white count was normal. EKG did not demonstrate an acute current of injury. I discussed findings with patient. Next Treat the patient for his bronchitis and asked that he follow up closely. Patient received 125 mg Solu-Medrol IV. Departure Impression Primary Impression: Bronchitis Disposition: 01 HOME, SELF-CARE Condition: Improved Departure-Patient Inst. Decision time for Depature: 11:41 Referrals: [facility] (PCP) Primary Care Physician RIC LI MD (Family) Primary Care Physician Patient Instructions: Acute Bronchitis, Adult (DC) Add. Discharge Instructions: Zithromax and prednisone as prescribed. Continue with your inhaler at home. Return if any problems or questions. All discharge instructions reviewed with patient and/or family. Voiced understanding. MARVIN DELAROSA MD Sep 19, 2018 11:28
--- NOTE | 2018-09-19 11:31 | Diagnostic Imaging Report ---
Clinical indication: Patient states chest pain. Exam: Chest x-ray PA and lateral views. Comparisons: Chest x-ray dated 08/20/2018. Findings: Lungs/pleura: There are slightly hyperinflated lungs, increased retrosternal clear space, and flattened hemidiaphragms which can be seen with COPD changes. Bilateral apical pleural-parenchymal thickening/scarring is seen. Lungs are otherwise clear. There is no pneumothorax. There is no pleural effusion. Mediastinum: Unremarkable. Pulmonary vasculature: Unremarkable. Heart: Unremarkable. Bones/extrathoracic soft tissue: Unremarkable. Impression: 1: Stable chest x-ray exam with no interval radiographic evidence of acute cardiopulmonary process. 2: COPD lung changes with bilateral apical pleural-parenchymal thickening/scarring. Dictated by: Dictated on workstation # [id number]
[2018-09-19] MEDS ORDERED: methylPREDNISolone 125 MG (Solu-MEDROL) VIAL IVP ONE (11:45)
[2018-09-19 12:25] VITALS: BP 98/64
== END 2018-09-19 12:25 | disposition home or self-care (01) ==
LOC: EDUNIT# 09:10 → ER 09:11
DX: J45.909 Unspecified asthma, uncomplicated (principal); J43.9 Emphysema, unspecified; K21.9 Gastro-esophageal reflux disease without esophagitis; M81.0 Age-related osteoporosis without current pathological fracture; F41.9 Anxiety disorder, unspecified; F43.10 Post-traumatic stress disorder, unspecified; F31.9 Bipolar disorder, unspecified; F60.9 Personality disorder, unspecified; Z86.718 Personal history of other venous thrombosis and embolism; Z86.010 Personal history of colon polyps; Z82.49 Family history of ischemic heart disease and other diseases of the circulatory system; Z80.0 Family history of malignant neoplasm of digestive organs
CPT/HCPCS: 36415; 71046; 85025; 93005

== ENCOUNTER 2018-10-01 09:44 | Observation (INO) | payer SELFPAY, OTHER | END 2018-10-03 12:19 | disposition home or self-care (01) | LOC: 4TH 13:55 → ER 09:44 → 4TH 13:34 ==

== ENCOUNTER 2018-10-16 16:05 | Inpatient (IN) | payer SELFPAY ==
[~2018-10-16] VITALS: Ht 170.2 cm; Wt 44.5 kg
[~2018-10-16 16:05] MED LIST changes: +ALBU6.7H8 INH; +FOLI1TAB24 PO; +PRD20T PO
[2018-10-16] MEDS ORDERED: NS IV 1000 ML 1,000 ML IV SCH (16:12)
[2018-10-16] MEDS ORDERED: ACETAMINOPHEN 500 MG TAB (TYLENOL) PO PRN (16:15)
[2018-10-16 16:29] LABS: BASOPHILS % (AUTO) 0 % (0-10); EOSINOPHILS % (AUTO) 1 % (0-10); HEMATOCRIT 29 % (40-54); HEMOGLOBIN 9.9 G/DL (13.3-17.7); LYMPHOCYTES # (AUTO) 0.8 X 10^3 (1.0-4.0); LYMPHOCYTES % (AUTO) 15 % (12-44); MEAN CORPUSCULAR HEMOGLOBIN 37 PG (25-34); MEAN CORPUSCULAR HGB CONC 34 G/DL (32-36); MEAN CORPUSCULAR VOLUME 110 FL (80-99); MEAN PLATELET VOLUME 9.4 FL (7.4-10.4); MONOCYTES # (AUTO) 0.8 X 10^3 (0.0-1.0); MONOCYTES % (AUTO) 16 % (0-12); NEUTROPHILS # (AUTO) 3.5 X 10^3 (1.8-7.8); NEUTROPHILS % (AUTO) 68 % (42-75); PLATELET COUNT 175 10^3/uL (130-400); WHITE BLOOD COUNT 5.1 10^3/uL (4.3-11.0)
[2018-10-16 16:39] LABS: PROTHROMBIN TIME PATIENT 13.3 SEC (12.2-14.7)
[2018-10-16 16:45] LABS: ALANINE AMINOTRANSFERASE 24 U/L (0-55); ALBUMIN 2.8 GM/DL (3.2-4.5); ALKALINE PHOSPHATASE 113 U/L (40-136); BILIRUBIN,TOTAL 0.5 MG/DL (0.1-1.0); BUN/CREATININE RATIO 12; CALCIUM 7.6 MG/DL (8.5-10.1); CARBON DIOXIDE 32 MMOL/L (21-32); CHLORIDE 93 MMOL/L (98-107); CREATININE SERUM 0.57 MG/DL (0.60-1.30); GFR ESTIMATED > 60; GLUCOSE 136 MG/DL (70-105); LIPASE 61 U/L (8-78); POTASSIUM 2.7 MMOL/L (3.6-5.0); SODIUM 136 MMOL/L (135-145)
[2018-10-16 16:53] LABS: BILIRUBIN,URINE NEGATIVE (NEGATIVE); CLARITY,URINE CLEAR; COLOR,URINE YELLOW; GLUCOSE, URINE (UA) NEGATIVE (NEGATIVE); KETONES,URINE 4+ (NEGATIVE); LEUKOCYTE ESTERASE ,URINE 1+ (NEGATIVE); NITRITE,URINE NEGATIVE (NEGATIVE); PH,URINE 6 (5-9); PROTEIN,URINE 2+ (NEGATIVE); UROBILINOGEN,URINE NORMAL (NORMAL)
[2018-10-16] MEDS ORDERED: POTASSIUM CL 10MEQ/50ML IVPB 50 ML IV ONE (17:00)
--- NOTE | 2018-10-16 17:00 | Diagnostic Imaging Report ---
CLINICAL INDICATION: Patient complains of chest pain, dizziness, and nonstop diarrhea and fever. EXAM: Portable chest x-ray, upright view. COMPARISONS: Chest x-ray dated 10/01/2018. FINDINGS: Stable hyperinflated lungs, increased retrosternal clear space, and flattened hemidiaphragms which can be seen with COPD changes. There is no interval lung infiltrate. There are increased lung markings throughout both lung bases, which may be related to scarring. Pulmonary vasculature and cardiac silhouette are within normal limits. There is no pleural effusion or pneumothorax. The remainder of this exam shows no significant interval change compared to the prior study of comparison. IMPRESSION: Stable chest x-ray exam with COPD lung changes. There is no definite interval lung infiltrate. Dictated by: Dictated on workstation # [id number]
[2018-10-16 17:05] LABS: BACTERIA,URINE TRACE /HPF; SQUAMOUS EPITHELIAL CELL,UR RARE /HPF; WBC,URINE RARE /HPF
[2018-10-16] MEDS ORDERED: NS 100 ML (IVPB) BAG IV ONE (17:45)
[2018-10-16] MEDS ORDERED: HOLD METFORMIN - RECEIVED CONTRAST 20 ML VIAL IV SCH (17:45)
[2018-10-16] MEDS ORDERED: IOHEXOL 350 MG/ML 100 ML (OMNIPAQUE 350) VIAL IV ONE (17:45)
--- NOTE | 2018-10-16 18:09 | ED General ---
General Chief Complaint: Chest Pain Stated Complaint: FEVER Nursing Triage Note: Pt to ED via EMS with c/o chest pain, dizziness, "non-stop diarrhea" and fever. Pt also reports new onset back pain. Pt reports symptoms have persisted for approximately one month. EMS reports temperature of 101.4 enroute to ED. Nursing Sepsis Screen: No Definite Risk Source of Information: Patient Exam Limitations: No Limitations (BRANDY OLIVA MD) History of Present Illness Date Seen by Provider: Oct 16, 2018 Time Seen by Provider: 16:05 Initial Comments This 58-year-old man presents to the emergency room with complaints of chest pain, abdominal pain, dizziness, fever, and profound diarrhea. Patient is very thin. He smokes heavily and drinks alcohol daily. His diarrhea has been present for more than a month. His other symptoms have developed in the last few days. He was admitted recently in September for COPD exacerbation. (BRANDY OLIVA MD) Allergies and Home Medications Allergies Coded Allergies: No Known Drug Allergies (Unverified , 08/05/18) Home Medications Acetaminophen 500 Mg Tablet, 1,000 MG PO Q6H PRN for PAIN-MILD, (Reported) Albuterol Sulfate 6.7 Gm Hfa.aer.ad, 2 PUFF INH Q4H PRN for SHORTNESS OF BREATH, (Reported) Folic Acid 1 Mg Tablet, 1 MG PO DAILY@0700 Prescribed by: NITIN ELLINGTON on 10/03/18 1039 Multivitamin 1 Each Tablet, 1 TAB PO DAILY, (Reported) Prednisone 20 Mg Tab, 40 MG PO DAILY@0700 Prescribed by: NITIN ELLINGTON on 10/03/18 1039 Tiotropium [place] 4 Gm Mist.inhal, 2 PUFF IH DAILY Prescribed by: RAFFY ELIZONDO on 08/08/18 1237 Patient Home Medication List Home Medication List Reviewed: Yes (BRANDY OLIVA MD) Review of Systems Review of Systems Constitutional: see HPI EENTM: no symptoms reported Respiratory: see HPI Cardiovascular: no symptoms reported Gastrointestinal: see HPI Genitourinary: no symptoms reported Musculoskeletal: no symptoms reported Skin: no symptoms reported Psychiatric/Neurological: No Symptoms Reported Hematologic/Lymphatic: No Symptoms Reported (BRANDY OLIVA MD) Past Ldnkkam-Ebfjqy-Hsteio Hx Past Med/Social Hx: Reviewed and Corrections made (BRANDY OLIVA MD) Patient Social History Alcohol Use: Regular Use Number of Drinks Today: FF Alcohol Beverage of Choice: Beer, Vodka Recreational Drug Use: No Smoking Status: Current Everyday Smoker Type Used: Cigarettes Recent Foreign Travel: No Contact w/Someone Who Travel: No Recent Infectious Disease Expo: No Recent Hopitalizations: No Physical Abuse: No Sexual Abuse: No (BRANDY OLIVA MD) Immunizations Up To Date Tetanus Booster (TDap): Unknown Date of Pneumonia Vaccine: Sep 07, 2011 Date of Influenza Vaccine: Oct 22, 2016 (BRANDY OLIVA MD) Seasonal Allergies Seasonal Allergies: No (BRANDY OLIVA MD) Past Medical History Surgeries: Yes Orthopedic Respiratory: Yes COPD, Emphysema Currently Using CPAP: No Currently Using BIPAP: No Cardiac: Yes Hypotension Neurological: No Reproductive Disorders: No Genitourinary: No Gastrointestinal: Yes Polyps Musculoskeletal: Yes Osteoporosis Endocrine: No HEENT: No Loss of Vision: Denies Hearing Impairment: Denies Cancer: No Psychosocial: Yes (alcohol dependence) Anxiety, PTSD, Bipolar, Personality Disorder, Depression Integumentary: No Blood Disorders: No Adverse Reaction/Blood Tranf: No (BRANDY OLIVA MD) Family Medical History Asthma 19 MOTHER Cardiovascular disease G8 SISTER (blood clots) Colon cancer 19 MOTHER (polyps/hiatal hernia) Congenital disease 19 MOTHER (nuerogenic syncope) Neoplasm No Pertinent Family Hx, Asthma, Cancer, DVT/PE (BRANDY OLIVA MD) Physical Exam Vital Signs Vital Signs - First Documented 10/16/18 16:05 Temp 99.1 Pulse 107 Resp 19 B/P (MAP) 108/67 (81) Pulse Ox 90 O2 Delivery Nasal Cannula O2 Flow Rate 2.0 (TABITHA LOPEZ) Vital Signs Capillary Refill : Less Than 3 Seconds (BRANDY OLIVA MD) Height, Weight, BMI Height: 5'7.00" Weight: 100lbs. 0.0oz. 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 Skin: Normal Color, Warm/Dry (BRANDY OLIVA MD) Focused Exam Lactate Level 10/16/18 16:10: Lactic Acid Level 0.87 (TABITHA LOPEZ) Lactic Acid Level (TABITHA LOPEZ) Progress/Results/Core Measures Suspected Sepsis Recent Fever Within 48 Hours: Yes Infection Criteria Present: None New/Unexplained Altered Menta: No Sepsis Screen: No Definite Risk SIRS Temperature:99.1 Pulse: 107 Respiratory Rate: 19 Laboratory Tests 10/16/18 16:10: White Blood Count 5.1 Blood Pressure 108 /67 Mean: 81 10/16/18 16:10: Lactic Acid Level 0.87 Laboratory Tests 10/16/18 16:10: Creatinine 0.57L, INR Comment 1.0, Platelet Count 175, Total Bilirubin 0.5 (BRANDY OLIVA MD) Results/Orders Lab Results Laboratory Tests Test 10/16/18 16:10 10/16/18 16:45 Range/Units White Blood Count 5.1 4.3-11.0 10^3/uL Red Blood Count 2.66 L 4.35-5.85 10^6/uL Hemoglobin 9.9 L 13.3-17.7 G/DL Hematocrit 29 L 40-54 % Mean Corpuscular Volume 110 H 80-99 FL Mean Corpuscular Hemoglobin 37 H 25-34 PG Mean Corpuscular Hemoglobin Concent 34 32-36 G/DL Red Cell Distribution Width 17.0 H 10.0-14.5 % Platelet Count 175 130-400 10^3/uL Mean Platelet Volume 9.4 7.4-10.4 FL Neutrophils (%) (Auto) 68 42-75 % Lymphocytes (%) (Auto) 15 12-44 % Monocytes (%) (Auto) 16 H 0-12 % Eosinophils (%) (Auto) 1 0-10 % Basophils (%) (Auto) 0 0-10 % Neutrophils # (Auto) 3.5 1.8-7.8 X 10^3 Lymphocytes # (Auto) 0.8 L 1.0-4.0 X 10^3 Monocytes # (Auto) 0.8 0.0-1.0 X 10^3 Eosinophils # (Auto) 0.0 0.0-0.3 10^3/uL Basophils # (Auto) 0.0 0.0-0.1 10^3/uL Prothrombin Time 13.3 12.2-14.7 SEC INR Comment 1.0 0.8-1.4 Activated Partial Thromboplast Time 29 24-35 SEC Sodium Level 136 135-145 MMOL/L Potassium Level 2.7 L 3.6-5.0 MMOL/L Chloride Level 93 L 98-107 MMOL/L Carbon Dioxide Level 32 21-32 MMOL/L Anion Gap 11 5-14 MMOL/L Blood Urea Nitrogen 7 7-18 MG/DL Creatinine 0.57 L 0.60-1.30 MG/DL Estimat Glomerular Filtration Rate > 60 BUN/Creatinine Ratio 12 Glucose Level 136 H 70-105 MG/DL Lactic Acid Level 0.87 0.50-2.00 MMOL/L Calcium Level 7.6 L 8.5-10.1 MG/DL Corrected Calcium 8.6 8.5-10.1 MG/DL Total Bilirubin 0.5 0.1-1.0 MG/DL Aspartate Amino Transf (AST/SGOT) 33 5-34 U/L Alanine Aminotransferase (ALT/SGPT) 24 0-55 U/L Alkaline Phosphatase 113 40-136 U/L Troponin I < 0.028 <0.028 NG/ML Total Protein 5.0 L 6.4-8.2 GM/DL Albumin 2.8 L 3.2-4.5 GM/DL Lipase 61 8-78 U/L Urine Color YELLOW Urine Clarity CLEAR Urine pH 6 5-9 Urine Specific [place] 1.015 L 1.016-1.022 Urine Protein 2+ H NEGATIVE Urine Glucose (UA) NEGATIVE NEGATIVE Urine Ketones 4+ H NEGATIVE Urine Nitrite NEGATIVE NEGATIVE Urine Bilirubin NEGATIVE NEGATIVE Urine Urobilinogen NORMAL NORMAL MG/DL Urine Leukocyte Esterase 1+ H NEGATIVE Urine RBC (Auto) 1+ H NEGATIVE Urine RBC NONE /HPF Urine WBC RARE /HPF Urine Squamous Epithelial Cells RARE /HPF Urine Crystals NONE /LPF Urine Bacteria TRACE /HPF Urine Casts NONE /LPF Urine Mucus SMALL H /LPF Urine Culture Indicated NO (JESSICA,TABITHA RECENTERER) Micro Results Microbiology 10/16/18 Fecal Leukocyte Stain - Final, Resulted 10/16/18 C. difficile GDH Antigen & Toxins - Final, Resulted 10/16/18 Stool Culture, Resulted Pending 10/16/18 Influenza Types A,B Antigen (DEMARCUS) - Final, Complete (TABITHA LOPEZ) My Orders Orders - TABITHA LOPEZ Ceftriaxone For Iv Use (Rocephin For I (10/16/18 18:45) Metronidazole 500mg/100ml Ivpb (Flagyl 5 (10/16/18 18:45) (TABITHA LOPEZ) Medications Given in ED Current Medications Medications Dose Ordered Sig/Arabella Route Start Time Stop Time Status Last Admin Dose Admin Acetaminophen 1,000 mg ONCE PRN PO 10/16/18 16:15 10/16/18 16:25 DC 10/16/18 16:24 1,000 MG Ceftriaxone Sodium 1000 mg/ Sterile Water 10 ml @ 200 mls/hr ONCE ONCE IV 10/16/18 18:45 10/16/18 18:47 DC 10/16/18 18:50 200 MLS/HR Potassium Chloride 50 ml @ 50 mls/hr ONCE ONCE IV 10/16/18 17:00 10/16/18 17:59 DC 10/16/18 17:11 50 MLS/HR (TABITHA LOPEZ) Vital Signs/I&O 10/16/18 10/16/18 10/16/18 10/16/18 16:05 16:05 16:09 19:31 Temp 99.1 99.1 Pulse 107 76 Resp 19 19 B/P (MAP) 108/67 (81) 111/75 (87) Pulse Ox 90 90 99 O2 Delivery Nasal Cannula Room Air Nasal Cannula Nasal Cannula O2 Flow Rate 2.0 2.00 2.00 10/16/18 10/16/18 19:50 19:50 Temp 98.2 98.2 Pulse 79 79 Resp 20 20 B/P (MAP) 90/67 (75) 90/67 Pulse Ox 100 100 O2 Delivery Nasal Cannula Nasal Cannula O2 Flow Rate 4.00 4.00 (TABITHA LOPEZ) Vital Signs/I&O Capillary Refill : Less Than 3 Seconds (BRANDY OLIVA MD) Blood Pressure Mean: 81 Progress Note : Time: 18:07 Progress Note Patient was seen and examined upon arrival. Chest pain workup and sepsis workup were both initiated. Patient was found to be severely hypokalemic. Potassium is being replaced by IV route. No source of infection or fever was found. CT of the abdomen and pelvis is being obtained to evaluate the abdominal pain as a possible source. Care of this patient is being transitioned to Tabitha Lopez NP. (BRANDY OLIVA MD) Progress Note : Progress Note 1830 Assumed care of patient, no complaints at this time. Awaiting CT results of abd/pelvis. 1844 CT results reviewed with patient. Will start ceftriaxone and Flagyl. Spoke to Dr. Ellington, agreed with plans for admission. Patient does report that he had a normal colonoscopy approximately 2-1/2 years ago in [place]. He denies a history of diverticulitis. 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 Spoke to the patient about this option and he will just use Ativan as he did at the previous admission. 1914 Admission orders completed. (TABITHA LOPEZ) ECG Initial ECG Impression Date: Oct 16, 2018 Initial ECG Impression Time: 10:40 Initial ECG Rate: 104 Initial ECG Rhythm: S.Tach Comment Sinus tachycardia with no ST elevation or depression. No abnormal intervals or axis deviation. (BRANDY OLIVA MD) Diagnostic Imaging Diagonstic Imaging: Xray Plain Films/CT/US/NM/MRI: chest Comments Chest x-ray viewed by me and report reviewed. See report below: NAME: KACI HILTON [facility] REC#: [id number] PT STATUS: REG ER : 1960 PHYSICIAN: BRANDY OLIVA MD ADMIT DATE: 10/16/18/ER Signed Date of Exam: 10/16/18 CHEST 1 VIEW, AP/PA ONLY CLINICAL INDICATION: Patient complains of chest pain, dizziness, and nonstop diarrhea and fever. EXAM: Portable chest x-ray, upright view. COMPARISONS: Chest x-ray dated 10/01/2018. FINDINGS: Stable hyperinflated lungs, increased retrosternal clear space, and flattened hemidiaphragms which can be seen with COPD changes. There is no interval lung infiltrate. There are increased lung markings throughout both lung bases, which may be related to scarring. Pulmonary vasculature and cardiac silhouette are within normal limits. There is no pleural effusion or pneumothorax. The remainder of this exam shows no significant interval change compared to the prior study of comparison. IMPRESSION: Stable chest x-ray exam with COPD lung changes. There is no definite interval lung infiltrate. Dictated by: Dictated on workstation # [id number] Dict: 10/16/18 165 Trans: 10/16/181701 Interpreted by: SUSI NOVOA MD Electronically signed by: SUSI NOVOA MD 10/16/181701 (BRANDY OLIVA MD) Diagonstic Imaging: CT Plain Films/CT/US/NM/MRI: abdomen, pelvis Comments NAME: KACI HILTON [facility] REC#: [id number] PT STATUS: REG ER : 1960 PHYSICIAN: BRANDY OLIVA MD ADMIT DATE: 10/16/18/ER Draft Date of Exam:10/16/18 CT ABDOMEN/PELVIS W PROCEDURE: CT abdomen and pelvis with contrast. TECHNIQUE: Multiple contiguous axial images were obtained through the abdomen and pelvis after administration of intravenous contrast. Auto Exposure Controls were utilized during the CT exam to meet ALARA standards for radiation dose reduction. INDICATION: Pain for approximately one month. Fever. New onset of back pain. FINDINGS: There is patchy infiltrate at the left lung base which is a change from a CT from 03/23/2017. No consolidations are seen. No focal mass is seen. There are fatty infiltrates of the liver. The gallbladder and bile ducts are normal. The spleen, pancreas, and adrenals are normal. The kidneys, ureters, and bladder are normal. There is diverticulosis of the colon. There is some edema of the sigmoid colon with no significant pericolonic edema seen. Changes may be related to colitis with no obstruction or perforation evident at this time. The small bowel is within normal limits. There is no free intraperitoneal air or fluid. IMPRESSION: There is diverticulosis of the colon. There is generalized mucosal edema of the sigmoid colon which may related to diverticulitis or other colitis. No abscess is present. No other acute abnormality in the abdomen is seen. There is patchy groundglass infiltrate seen in the left lower lobe. Dictated on workstation # [id number] Reviewed: Reviewed by Me (TABITHA LOPEZ) Departure Impression Primary Impression: Diverticulosis Additional Impressions: Hypokalemia Diarrhea Qualified Codes: R19.7 - Diarrhea, unspecified Alcohol abuse Disposition: ADMITTED INPATIENT Condition: Stable Admissions Decision to Admit Reason: Admit from ER (General) Decision to Admit/Date: Oct 16, 2018 Time/Decision to Admit Time: 18:45 (TABITHA LOPEZ) Departure-Patient Inst. Referrals: [facility] [place] (PCP) Primary Care Physician RIC LI MD (Family) Primary Care Physician BRANDY OLIVA MD Oct 16, 2018 18:09 TABITHA LOPEZ Oct 16, 2018 18:39
--- NOTE | 2018-10-16 18:29 | Diagnostic Imaging Report ---
PROCEDURE: CT abdomen and pelvis with contrast. TECHNIQUE: Multiple contiguous axial images were obtained through the abdomen and pelvis after administration of intravenous contrast. Auto Exposure Controls were utilized during the CT exam to meet ALARA standards for radiation dose reduction. INDICATION: Pain for approximately one month. Fever. New onset of back pain. FINDINGS: There is patchy infiltrate at the left lung base which is a change from a CT from 03/23/2017. No consolidations are seen. No focal mass is seen. There are fatty infiltrates of the liver. The gallbladder and bile ducts are normal. The spleen, pancreas, and adrenals are normal. The kidneys, ureters, and bladder are normal. There is diverticulosis of the colon. There is some edema of the sigmoid colon with no significant pericolonic edema seen. Changes may be related to colitis with no obstruction or perforation evident at this time. The small bowel is within normal limits. There is no free intraperitoneal air or fluid. IMPRESSION: There is diverticulosis of the colon. There is generalized mucosal edema of the sigmoid colon which may related to diverticulitis or other colitis. No abscess is present. No other acute abnormality in the abdomen is seen. There is patchy groundglass infiltrate seen in the left lower lobe. Dictated by: Dictated on workstation # [id number]
[2018-10-16] MEDS ORDERED: cefTRIAXone FOR IV USE 1,000 MG in WATER (STERILE) FOR INJECTION 10 ML IV ONE (18:45)
[2018-10-16] MEDS ORDERED: metroNIDAZOLE 500MG/100ML IVPB 100 ML IV ONE (18:45)
--- NOTE | 2018-10-16 19:15 | NUR ---
Report given to LUISA Marion.
[2018-10-16 19:50] VITALS: BP 90/67
--- NOTE | 2018-10-16 19:50 | NUR ---
KACI HILTON admitted to room 429-1, with an admitting diagnosis of ABD PAIN, on 10/16/18 from ED via WHEELCHAIR, accompanied by STAFF.KACI HILTON introduced to surroundings, call light, bed controls, phone, TV, temperature control, lights, meal times, smoking policy, visitor policy, side rail policy, bathrooms and showers. Patient Rights given to patient in the handbook. KACI HILTON verbalizes understanding that [facility] is not responsible for the loss or damage to any personal effects or valuables that are kept in the patients posession during their hospitalization.
[2018-10-16] MEDS ORDERED: LORazepam 0.5 MG (ATIVAN) TABLET PO PRN (20:00)
[2018-10-16] MEDS ORDERED: ACETAMINOPHEN 325 MG TABLET PO PRN (20:00)
[2018-10-16] MEDS ORDERED: CATHETER FLUSH 10 ML SYR IV PRN (20:00)
[2018-10-16] MEDS ORDERED: ONDANSETRON 4 MG/2 ML (SDV) Z0FRAN IV PRN (20:00)
[2018-10-16] MEDS ORDERED: DIPHENOXYLATE/ATROPINE 2.5MG/0.025MG (LOMOTIL) TAB PO PRN (20:30)
[2018-10-16] MEDS: POTASSIUM CHLORIDE INJ 10 MEQ in NS IV 1000 ML 1,000 ML IV SCH (20:38)
[2018-10-16] MEDS: metroNIDAZOLE 500 MG/100 ML IVPB (PRE-MIX) IV SCH (20:38)
[2018-10-16] MEDS: NICOTINE 21 MG (NICODERM) PATCH TD SCH (20:39)
--- NOTE | 2018-10-16 20:56 | CONSULTATION REPORT ---
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 HISTORY OF PRESENT ILLNESS: The patient is a 58-year-old male, who presented to the Emergency Department with complaints of abdominal pain as well as chest pain, fever, lightheadedness as well as profound diarrhea. He states that the diarrhea has been persistent for the past month. He does not report any red blood per rectum nor any dark tarry stools. He does not report any nausea nor vomiting. He does have a history of COPD and was recently admitted for COPD exacerbation. He does have a significant history of smoking as well as alcohol use. PAST MEDICAL HISTORY: Hypertension, COPD, osteoporosis, anxiety, PTSD, bipolar disorder, personality disorder, depression. PAST SURGERIES: Orthopedic procedure. ALLERGIES: No known drug allergies. MEDICATIONS: 1. Albuterol 2 puffs q.4 hours p.r.n. 2. Folic acid 1 mg daily. 3. Prednisone 20 mg daily. 4. Tiotropium bromide 4 mg 2 puffs daily. SOCIAL HISTORY: Positive smoke, 40 pack years, does drink a significant amount of alcohol with beer and vodka daily. FAMILY HISTORY: Noncontributory. REVIEW OF SYSTEMS: This is a thin appearing male with cough and some sputum production. He does not state any shortness of breath or difficulty breathing. No chest pain, palpitations or diaphoresis. He reports that he has had some abdominal pain, initially more diffuse; however, more in the lower abdominal quadrants. He has also had a persistent diarrhea for the past month. He does not report any red blood per rectum nor any dark tarry stools. He does report that he has had some intermittent fevers at home. He has also lost weight over a significant span of time, nothing recently. All other review of systems are negative. PHYSICAL EXAMINATION: VITAL SIGNS: Temperature 99.1, blood pressure 108/67, pulse 107, respirations 19, pulse ox 98% on 2 liters nasal cannula. CHEST: Distant breath sounds and scattered wheezes bilaterally. HEART: Regular, no murmurs. EXTREMITIES: No lower extremity edema. Negative Homans sign. HEENT: No scleral icterus. NECK: No cervical lymphadenopathy. ABDOMEN: Soft and nondistended. There is pain in the lower abdominal quadrants upon palpation, voluntary guarding, no rebound. SKIN: Warm, dry. LABORATORY DATA: WBC 5.1, hemoglobin 9.9, hematocrit 28, platelets 175. BUN 7, creatinine 0.57. Liver function enzymes are normal. UA positive for leukocyte esterase and bacteria. ASSESSMENT AND PLAN: A 58-year-old male with noncomplicated sigmoid colitis. It is unsure what the etiology of the colitis is. There are diverticula identified on the CT scan as well; however, the differential may include sigmoid diverticulitis versus ischemic colitis versus bacterial overgrowth from being on previous antibiotics for exacerbation of COPD. We will await the stool culture results as well as Clostridium difficile. We will recommend conservative therapy with IV hydration and antibiotics to cover anaerobes as well as bowel rest. Once he is less symptomatic, he may be discharged home; however, he will need a followup colonoscopy to evaluate and diagnose the potential etiology for his sigmoid colitis. Job ID: [id number] DocumentID: [id number] Dictated Date: 10/16/2018 20:14:59 Administrative Medical Director Date: 10/16/2018 20:55:43 Dictated By: VINCENT COUCH MD
[2018-10-16 23:00] VITALS: BP 90/67
[2018-10-16 23:34] VITALS: BP 104/57
[2018-10-17] MEDS ORDERED: RT-ALBUTEROL/IPRATROPIUM 3 ML (DUONEB) VIAL INH PRN (00:45)
[2018-10-17 03:53] VITALS: BP 101/62
[2018-10-17] MEDS: RT-ALBUTEROL/IPRATROPIUM 3 ML (DUONEB) VIAL INH SCH ×6 (04:03→22:46)
[2018-10-17 05:17] LABS: BASOPHILS % (AUTO) 0 % (0-10); EOSINOPHILS # (AUTO) 0.1 10^3/uL (0.0-0.3); EOSINOPHILS % (AUTO) 3 % (0-10); HEMATOCRIT 27 % (40-54); LYMPHOCYTES # (AUTO) 0.8 X 10^3 (1.0-4.0); LYMPHOCYTES % (AUTO) 18 % (12-44); MEAN CORPUSCULAR HEMOGLOBIN 37 PG (25-34); MEAN CORPUSCULAR HGB CONC 33 G/DL (32-36); MEAN CORPUSCULAR VOLUME 113 FL (80-99); MEAN PLATELET VOLUME 9.4 FL (7.4-10.4); MONOCYTES # (AUTO) 0.5 X 10^3 (0.0-1.0); MONOCYTES % (AUTO) 11 % (0-12); NEUTROPHILS # (AUTO) 3.1 X 10^3 (1.8-7.8); NEUTROPHILS % (AUTO) 69 % (42-75); PLATELET COUNT 146 10^3/uL (130-400); RED CELL DISTRIBUTION WIDTH 17.1 % (10.0-14.5); WHITE BLOOD COUNT 4.6 10^3/uL (4.3-11.0)
[2018-10-17] MEDS: metroNIDAZOLE 500 MG/100 ML IVPB (PRE-MIX) IV SCH ×3 (05:18→21:33)
[2018-10-17 05:57] LABS: ALANINE AMINOTRANSFERASE 20 U/L (0-55); ALBUMIN 2.5 GM/DL (3.2-4.5); ALKALINE PHOSPHATASE 89 U/L (40-136); BILIRUBIN,TOTAL 0.5 MG/DL (0.1-1.0); BUN/CREATININE RATIO 7; CALCIUM 6.4 MG/DL (8.5-10.1); CARBON DIOXIDE 31 MMOL/L (21-32); CHLORIDE 100 MMOL/L (98-107); CREATININE SERUM 0.44 MG/DL (0.60-1.30); GFR ESTIMATED > 60; GLUCOSE 67 MG/DL (70-105); SODIUM 142 MMOL/L (135-145); TOTAL PROTEIN 4.1 GM/DL (6.4-8.2)
[2018-10-17 06:17] LABS: POTASSIUM 2.4 MMOL/L (3.6-5.0)
[2018-10-17] MEDS ORDERED: KCL 20 MEQ TAB (K-DUR) PO NR (07:00)
[2018-10-17] MEDS: POTASSIUM CL 10MEQ/50ML IVPB 50 ML IV SCH ×3 (07:28→09:16)
[2018-10-17 08:00] VITALS: BP 99/60
[2018-10-17] MEDS ORDERED: MAGNESIUM 1 GM/100 ML IVPB 100 ML IV SCH (08:30)
[2018-10-17] MEDS: MAGNESIUM 1 GM/100 ML IVPB 100 ML IV SCH ×6 (08:41→10:58)
[2018-10-17] MEDS: NICOTINE 21 MG (NICODERM) PATCH TD SCH (08:44)
[2018-10-17] MEDS: POTASSIUM CHLORIDE INJ 10 MEQ in NS IV 1000 ML 1,000 ML IV SCH ×2 (08:50→16:32)
--- NOTE | 2018-10-17 09:44 | NUR ---
SPOKE WITH THE PATIENT ABOUT HIS MEDICATIONS. HE STATES NOTHING HAS CHANGED SINCE HIS LAST ADMISSION. HE VERIFIED HE FINISHED HIS PREDNISONE THAT WAS PRESCRIBED LAST TIME. 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
[2018-10-17] MEDS ORDERED: 1/2 NS IV SOLUTION 1,000 ML IV PRN (11:04)
[2018-10-17] MEDS ORDERED: LORazepam INJ 2 MG/ML (ATIVAN) VIAL IV PRN (11:15)
[2018-10-17] MEDS ORDERED: LORazepam INJ 2 MG/ML (ATIVAN) VIAL IM/IV PRN (11:15)
[2018-10-17] MEDS ORDERED: D5 1/2 NS 1000 ML IV SOLUTION 1,000 ML IV PRN (11:15)
[2018-10-17] MEDS ORDERED: ANTACID SUSP 30 ML UDC (MYLANTA) PO PRN (11:15)
[2018-10-17] MEDS ORDERED: ONDANSETRON 4 MG (ZOFRAN) ORAL DISSOLVE TAB SL PRN (11:15)
[2018-10-17] MEDS ORDERED: SENNA W/DOCUSATE (SENOKOT S) TABLET PO PRN (11:15)
[2018-10-17] MEDS ORDERED: ONDANSETRON 4 MG/2 ML (SDV) Z0FRAN IV PRN (11:15)
[2018-10-17] MEDS ORDERED: LORazepam 1 MG (ATIVAN) TAB PO PRN (11:15)
[2018-10-17 12:00] VITALS: BP 100/62
--- NOTE | 2018-10-17 12:05 | NUR ---
Initial visit; the pt recalled me from his previous admission and expressed gratitude for seeing a familiar face when I entered the room. The pt said he is thankful to know the cause of his illness, and that he is already experiencing some relief. The pt is of [employer] affiliation.
--- NOTE | 2018-10-17 14:14 | History & Physical-Hospitalist ---
History of Present Illness HPI/Chief Complaint Alvaro Humphries is a 58-year-old male with past medical history of COPD who presented with abdominal pain. he was recently admitted for a COPD exacerbation and was treated with nebulizers and steroids. He reports that since being discharged she has had worsening abdominal pain and diarrhea. He reports having fevers. He denies any chest pain or shortness of breath. Denies any cough or dysuria. He denies any nausea or vomiting. He denies any history of diverticulitis. He had a colonoscopy a couple years ago in [place]. He reports that he had been getting colonoscopies every 2-3 years due to polyps. He reports having a good appetite but says "things just go right through me". He reports that he had been drinking daily since discharge. Source: patient Exam Limitations: no limitations Date Seen 10/17/18 Time Seen by a Provider: 09:25 Attending Physician Mary Ellington MD PCP Center/[facility] Referring Physician Date of Admission Oct 16, 2018 at 18:45 Home Medications & Allergies Home Medications Reviewed patient Home Medication Reconciliation performed by pharmacy medication reconciliations cable technician and/or nursing. Patients Allergies have been reviewed. Allergies Allergies Coded Allergies No Known Drug Allergies (Unverified08/05/18) Past Gxtkbbd-Xppjir-Tbgtim Hx Past Med/Social Hx: Reviewed Nursing Past Med/Soc Hx Patient Social History Alcohol Use: Regular Use Number of Drinks Today: FF Alcohol Beverage of Choice: Beer, Vodka Recreational Drug Use: No Smoking Status: Current Everyday Smoker Type Used: Cigarettes Recent Foreign Travel: No Contact w/other who traveled: No Recent Hopitalizations: No Recent Infectious Disease Expo: No Immunizations Up To Date Tetanus Booster (TDap): Unknown Date of Pneumonia Vaccine: Sep 07, 2011 Date of Influenza Vaccine: Oct 22, 2016 Seasonal Allergies Seasonal Allergies: No Past Medical History Surgeries: Orthopedic Respiratory: COPD Currently Using CPAP: No Currently Using BIPAP: No Cardiac: Hypotension Reproductive: No Gastrointestinal: Polyps Musculoskeletal: Osteoporosis Loss of Vision: Denies Hearing Impairment: Denies Psychosocial: Anxiety, PTSD, Bipolar, Personality Disorder, Depression History of Blood Disorders: No Adverse Reaction to Blood Yoder: No Family History Asthma 19 MOTHER Cardiovascular disease G8 SISTER (blood clots) Colon cancer 19 MOTHER (polyps/hiatal hernia) Congenital disease 19 MOTHER (nuerogenic syncope) Neoplasm No Pertinent Family Hx, Asthma, Cancer, DVT/PE Review of Systems Constitutional: see HPI Physical Exam Physical Exam Vital Signs Vital Signs - First Documented 10/16/18 10/16/18 16:05 23:00 Temp 99.1 Pulse 107 Resp 19 B/P (MAP) 108/67 (81) Pulse Ox 90 O2 Delivery Nasal Cannula O2 Flow Rate 2.0 FiO2 32 Capillary Refill : Less Than 3 Seconds Height, Weight, BMI Height: 5'7.00" Weight: 98lbs. 0.0oz. 44.081587mb; 15.4 BMI Method:Stated General Appearance: No Apparent Distress, Cachetic HEENT: PERRL/EOMI, Pharynx Normal Neck: Normal Inspection, Supple Respiratory: Lungs Clear, Normal Breath Sounds, No Respiratory Distress Cardiovascular: Regular Rate, Rhythm, No Edema, No Murmur Gastrointestinal: Normal Bowel Sounds, Soft, Tenderness Back: Normal Inspection, CVA Tenderness (L) Extremity: Normal Inspection, Non Tender, No Pedal Edema Neurologic/Psychiatric: Alert, Oriented x3 Skin: Normal Color, Warm/Dry Lymphatic: No Adenopathy Results Results/Procedures Labs Laboratory Tests 10/16/18 16:10 10/17/18 04:53 10/17/18 04:55 Patient resulted labs reviewed. Imaging: Reviewed Imaging Report Assessment/Plan Admission Diagnosis diverticulitis Admission Status: Inpatient Order (span 2 midnights) Reason for Inpatient Admission: severe protein calorie malnutrition COPD Assessment and Plan diverticulitis CT abdomen consistent with sigmoid diverticulitis, though other etiologies of colitis cannot be excluded C. difficile negative Stool culture pending Gen. surgery consulted, planning for colonoscopy as outpatient Started on ceftriaxone and Flagyl Tolerating clear diet, advance to general Begin Imodium as needed for diarrhea Severe protein calorie malnutrition ensure ordered Calorie count Dietary consult COPD without exacerbation MAT protocol ordered Clinical Quality Measures DVT/VTE Risk/Contraindication: Risk Factor Score Per Nursin RFS Level Per Nursing on Admit: 4+=Very High MARY ELLINGTON MD Oct 17, 2018 14:14
[2018-10-17] MEDS ORDERED: MELATONIN 3 MG TABLET PO PRN (14:30)
[2018-10-17] MEDS ORDERED: POLYETHYLENE GLYCOL 17 GM (MIRALAX) PACK PO PRN (14:30)
[2018-10-17] MEDS ORDERED: diphenhydrAMINE 25 MG TAB (BENADRYL) PO PRN (14:30)
[2018-10-17 16:15] VITALS: BP 97/55
[2018-10-17] MEDS: POT PHOS/NA PHOS (K-PHOS NEUTRAL) PO SCH (16:17)
[2018-10-17] MEDS: cefTRIAXone 1,000 MG/SWFI 10 ML IV PUSH IV SCH ×2 (17:07)
[2018-10-17] MEDS: HYDROcodone/APAP 7.5 MG/325 MG (LORTAB, LORCET PLUS) TABLET PO PRN ×2 (17:11→21:33)
[2018-10-17] MEDS: DOCUSATE SODIUM 100 MG (COLACE) CAP PO SCH (19:57)
[2018-10-17 20:27] VITALS: BP 105/55
[2018-10-17] MEDS: MAGNESIUM OXIDE (MAG-OX)400 MG TAB PO SCH (21:33)
[2018-10-18] VITALS (7 sets, daily range): BP systolic 95–110; BP diastolic 60–67
[2018-10-18] MEDS: RT-ALBUTEROL/IPRATROPIUM 3 ML (DUONEB) VIAL INH SCH ×6 (01:09→22:05)
[2018-10-18] MEDS ORDERED: NS IV 1000 ML 0 ML ONE (03:20)
[2018-10-18] MEDS: HYDROcodone/APAP 7.5 MG/325 MG (LORTAB, LORCET PLUS) TABLET PO PRN ×3 (03:29→23:53)
[2018-10-18] MEDS: POTASSIUM CHLORIDE INJ 10 MEQ in NS IV 1000 ML 1,000 ML IV SCH ×3 (03:31→20:11)
[2018-10-18 05:48] LABS: HEMOGLOBIN 8.8 G/DL (13.3-17.7); MEAN PLATELET VOLUME 9.4 FL (7.4-10.4); RED CELL DISTRIBUTION WIDTH 17.1 % (10.0-14.5)
[2018-10-18] MEDS: POT PHOS/NA PHOS (K-PHOS NEUTRAL) PO SCH ×3 (05:48→16:51)
[2018-10-18] MEDS: metroNIDAZOLE 500 MG/100 ML IVPB (PRE-MIX) IV SCH ×3 (05:48→21:52)
[2018-10-18] MEDS: THIAMINE 100 MG (VITAMIN B-1) TAB PO SCH (05:49)
[2018-10-18] MEDS: MULTIVIT W/MINERALS TAB (THERAGRAN M) PO SCH (05:49)
[2018-10-18 06:08] LABS: BUN/CREATININE RATIO 7; CALCIUM 6.3 MG/DL (8.5-10.1); CARBON DIOXIDE 30 MMOL/L (21-32); CHLORIDE 102 MMOL/L (98-107); CREATININE SERUM 0.41 MG/DL (0.60-1.30); GFR ESTIMATED > 60; GLUCOSE 90 MG/DL (70-105); MAGNESIUM 1.4 MG/DL (1.6-2.4); POTASSIUM 2.6 MMOL/L (3.6-5.0); SODIUM 141 MMOL/L (135-145)
[2018-10-18] MEDS: DOCUSATE SODIUM 100 MG (COLACE) CAP PO SCH ×2 (08:01→20:06)
[2018-10-18] MEDS: MAGNESIUM 1 GM/100 ML IVPB 100 ML IV SCH ×4 (08:34→11:39)
[2018-10-18] MEDS: POTASSIUM CL 10MEQ/50ML IVPB 50 ML IV SCH ×4 (08:34→11:39)
[2018-10-18] MEDS: NICOTINE 21 MG (NICODERM) PATCH TD SCH (08:35)
[2018-10-18] MEDS: FOLIC ACID 1 MG TAB PO SCH (08:35)
[2018-10-18] MEDS: MAGNESIUM OXIDE (MAG-OX)400 MG TAB PO SCH ×2 (08:35→20:11)
[2018-10-18] MEDS: LOPERAMIDE 2 MG (IMODIUM) TABLET PO PRN (10:15)
[2018-10-18] MEDS: LACTOBACILLUS ACIDOPHILUS (PROBIOTIC) CAPSULE PO SCH ×2 (11:19→16:51)
[2018-10-18] MEDS: ENOXAPARIN 30 MG/0.3 ML (LOVENOX) SYR SC SCH (11:20)
[2018-10-18] MEDS ORDERED: KCL 20 MEQ TAB (K-DUR) PO NR ×2 (12:00→16:00)
--- NOTE | 2018-10-18 15:58 | Progress Note - Hospitalist ---
Subjective HPI/CC On Admission Date Seen by Provider: Oct 18, 2018 Time Seen by Provider: 10:30 diarrhea Subjective/Events-last exam He reports that his diarrhea is improving. He says that his abdominal pain is i mproved. He denies any fevers or chills. He denies any chest pain or trouble breathing. He denies any nausea and vomiting. Focused Exam Lactate Level 10/16/18 16:10: Lactic Acid Level 0.87 Objective Exam Vital Signs Vital Signs Date Time Temp Pulse Resp B/P (MAP) Pulse Ox O2 Delivery O2 Flow Rate FiO2 10/18/18 14:33 95 Nasal Cannula 1.00 10/18/18 13:00 91 10/18/18 12:00 98.6 20 106/67 (80) 10/16/18 23:00 32 Capillary Refill : Less Than 3 Seconds General Appearance: No Apparent Distress, Cachetic HEENT: PERRL/EOMI, Pharynx Normal Neck: Normal Inspection, Supple Respiratory: Lungs Clear, Normal Breath Sounds, No Respiratory Distress Cardiovascular: Regular Rate, Rhythm, No Edema, No Murmur Gastrointestinal: Normal Bowel Sounds, Non Tender, Soft Extremity: Normal Inspection, No Pedal Edema Neurologic/Psychiatric: Alert, Oriented x3 Skin: Normal Color, Warm/Dry Lymphatic: No Adenopathy Results/Procedures Lab Laboratory Tests 10/18/18 05:15 Patient resulted labs reviewed. Imaging: Reviewed Imaging Report Assessment/Plan Assessment and Plan Assess & Plan/Chief Complaint Diverticulitis CT abdomen consistent with sigmoid diverticulitis, though other etiologies of colitis cannot be excluded C. difficile negative Stool culture negative for Giardia and cryptosporidium Gen. surgery consulted, planning for colonoscopy as outpatient Continue ceftriaxone and Flagyl Tolerating clear diet, advance to general Continue Imodium as needed for diarrhea Severe protein calorie malnutrition ensure ordered Calorie count Dietary consult COPD without exacerbation MAT protocol ordered Diagnosis/Problems Diagnosis/Problems (1) Diverticulitis Status: Acute Clinical Quality Measures DVT/VTE Risk/Contraindication: Risk Factor Score Per Nursin RFS Level Per Nursing on Admit: 4+=Very High NITIN ELLINGTON MD Oct 18, 2018 15:58
[2018-10-18] MEDS: cefTRIAXone 1,000 MG/SWFI 10 ML IV PUSH IV SCH ×2 (16:52)
[2018-10-19 04:06] VITALS: BP 118/73
[2018-10-19 06:09] LABS: HEMOGLOBIN 9.3 G/DL (13.3-17.7); MEAN PLATELET VOLUME 9.6 FL (7.4-10.4); RED CELL DISTRIBUTION WIDTH 16.8 % (10.0-14.5); WHITE BLOOD COUNT 5.2 10^3/uL (4.3-11.0)
[2018-10-19] MEDS: metroNIDAZOLE 500 MG/100 ML IVPB (PRE-MIX) IV SCH (06:19)
[2018-10-19] MEDS: POT PHOS/NA PHOS (K-PHOS NEUTRAL) PO SCH ×2 (06:20→12:00)
[2018-10-19] MEDS: THIAMINE 100 MG (VITAMIN B-1) TAB PO SCH (06:20)
[2018-10-19] MEDS: MULTIVIT W/MINERALS TAB (THERAGRAN M) PO SCH (06:21)
[2018-10-19] MEDS: LACTOBACILLUS ACIDOPHILUS (PROBIOTIC) CAPSULE PO SCH ×2 (06:21→12:00)
[2018-10-19] MEDS: HYDROcodone/APAP 7.5 MG/325 MG (LORTAB, LORCET PLUS) TABLET PO PRN ×2 (06:21→11:00)
[2018-10-19 06:29] LABS: BUN/CREATININE RATIO 13; CALCIUM 7.9 MG/DL (8.5-10.1); CARBON DIOXIDE 31 MMOL/L (21-32); CHLORIDE 102 MMOL/L (98-107); CREATININE SERUM 0.46 MG/DL (0.60-1.30); GFR ESTIMATED > 60; GLUCOSE 75 MG/DL (70-105); MAGNESIUM 1.5 MG/DL (1.6-2.4); PHOSPHORUS 2.6 MG/DL (2.3-4.7); POTASSIUM 3.8 MMOL/L (3.6-5.0); SODIUM 141 MMOL/L (135-145)
[2018-10-19] MEDS: POTASSIUM CHLORIDE INJ 10 MEQ in NS IV 1000 ML 1,000 ML IV SCH (06:40)
[2018-10-19 07:27] VITALS: BP 115/72
[2018-10-19] MEDS ORDERED: RT-ALBUTEROL/IPRATROPIUM 3 ML (DUONEB) VIAL INH SCH (08:00)
[2018-10-19] MEDS: FOLIC ACID 1 MG TAB PO SCH (08:47)
[2018-10-19] MEDS: NICOTINE 21 MG (NICODERM) PATCH TD SCH (08:47)
[2018-10-19] MEDS: MAGNESIUM OXIDE (MAG-OX)400 MG TAB PO SCH (08:47)
[2018-10-19] MEDS: MAGNESIUM 1 GM/100 ML IVPB 100 ML IV SCH ×2 (08:48→10:09)
[2018-10-19] MEDS: DOCUSATE SODIUM 100 MG (COLACE) CAP PO SCH (08:54)
[2018-10-19] MEDS: LOPERAMIDE 2 MG (IMODIUM) TABLET PO PRN (09:02)
[2018-10-19] MEDS ORDERED: METR-145 PO ×4 (09:28→12:33)
[2018-10-19] MEDS ORDERED: CIPR500T4 PO ×4 (09:28→12:33)
--- NOTE | 2018-10-19 09:40 | Discharge Summary ---
Discharge Summary Hospital Course Was the Problem List Reviewed?: Yes Problems/Dx: (1) Diverticulitis Status: Acute (2) Severe protein-calorie malnutrition Status: Chronic (3) Hypokalemia Status: Resolved (4) Hypomagnesemia Status: Resolved (5) Diarrhea Status: Acute Qualifiers: Qualified Codes: R19.7 - Diarrhea, unspecified Hospital Course Date of Admission: Oct 18, 2018 at 12:48 Admission Diagnosis : diverticulitis Family Physician/Provider: Lizett Calvo MD Date of Discharge: 10/19/18 Discharge Diagnosis: diverticulitis Hospital Course: Alvaro Humphries is a 58-year-old male with past medical history of COPD and recent admission for COPD exacerbation who presented with abdominal pain and diarrhea and was admitted with diverticulitis. He was treated with IV antibiotics, Cipro and Flagyl, and responded well. He was transitioned to oral antibiotics. She will continue a 2 day course which he will pick up and delivery driver at [facility] and will then go to [facility] on Sunday to pick up and delivery driver the rest of his three- day course. He has to do this due to financial trouble. General surgery was consulted and plans to follow up with him in a few weeks and will schedule a colonoscopy. He also had some electrolyte abnormalities which were monitored and replaced as needed. His COPD remained stable. He will call [facility] on Sunday for a follow-up appointment. Labs and Pending Lab Test: Laboratory Tests 10/19/18 05:30: White Blood Count 5.2, Red Blood Count 2.50L, Hemoglobin 9.3L, Hematocrit 28L, Mean Corpuscular Volume 114H, Mean Corpuscular Hemoglobin 37H, Mean Corpuscular Hemoglobin Concent 33, Red Cell Distribution Width 16.8H, Platelet Count 156, Mean Platelet Volume 9.6, Sodium Level 141, Potassium Level 3.8, Chloride Level 102, Carbon Dioxide Level 31, Anion Gap 8, Blood Urea Nitrogen 6L, Creatinine 0.46L, Estimat Glomerular Filtration Rate > 60, BUN/Creatinine Ratio 13, Glucose Level 75, Calcium Level 7.9L, Phosphorus Level 2.6, Magnesium Level 1.5L Microbiology 10/16/18 Blood Culture - Preliminary, Resulted No growth 10/16/18 Cryptosporidium/Giardia - Final, Complete 10/16/18 Gram Stain - Final, Resulted 10/16/18 Sputum Culture - Preliminary, Resulted Streptococcus pneumoniae Usual upper respiratory tonny 10/16/18 Urine Culture - Final, Complete NO GROWTH Home Meds Active Metronidazole 500 Mg Tablet 500 Mg PO TID 3 Days Ciprofloxacin HCl 500 Mg Tablet 500 Mg PO BID 3 Days Metronidazole 500 Mg Tablet 500 Mg PO TID 2 Days Ciprofloxacin HCl 500 Mg Tablet 500 Mg PO BID 2 Days Folic Acid 1 Mg Tablet 1 Mg PO DAILY@0700 90 Days Spiriva Respimat 2.5MCG/ACTUATION (Tiotropium Titus) 4 Gm Mist.inhal 2 Puff IH DAILY Reported Proventil Hfa (Albuterol Sulfate) 6.7 Gm Hfa.aer.ad 2 Puff INH Q4H PRN Multi-Vitamin Daily (Multivitamin) 1 Each Tablet 1 Tab PO DAILY Acetaminophen 500 Mg Tablet 1,000 Mg PO Q6H PRN Assessment/Pt Instructions Take medications as prescribed. Call [facility] on Sunday to set up a follow-up appointment. Discharge Instructions Discharge Diet: No Restrictions Activity as Tolerated: Yes Consultations General Surgery Discharge Physical Examination Vital Signs Vital Signs Date Time Temp Pulse Resp B/P (MAP) Pulse Ox O2 Delivery O2 Flow Rate FiO2 10/19/18 07:27 99.1 86 20 115/72 (86) 96 Room Air 10/18/18 16:00 4.00 10/16/18 23:00 32 General Appearance: No Apparent Distress, WD/WN HEENT: PERRL/EOMI, Pharynx Normal Respiratory: Lungs Clear, Normal Breath Sounds, No Respiratory Distress Cardiovascular: Regular Rate, Rhythm, No Edema, No Murmur Gastrointestinal: Normal Bowel Sounds, Soft, Tenderness Extremity: Normal Inspection, Non Tender, No Pedal Edema Skin: Normal Color, Warm/Dry Neurologic/Psychiatric: Alert, Oriented x3 Allergies: Coded Allergies: No Known Drug Allergies (Unverified , 08/05/18) Discharge Summary Date of Admission Oct 18, 2018 at 12:48 Date of Discharge Discharge Date: Oct 19, 2018 Discharge Time: 11:00 Admission Diagnosis diverticulitis Discharge Diagnosis Diverticulitis CT abdomen consistent with sigmoid diverticulitis, though other etiologies of colitis cannot be excluded C. difficile negative Stool culture negative for Giardia and cryptosporidium Gen. surgery consulted, planning for colonoscopy as outpatient Continue ceftriaxone and Flagyl Tolerating clear diet, advance to general Continue Imodium as needed for diarrhea Severe protein calorie malnutrition ensure ordered Calorie count Dietary consult COPD without exacerbation MAT protocol ordered (1) Diverticulitis Status: Acute Clinical Quality Measures DVT/VTE Risk/Contraindication: Risk Factor Score Per Nursin RFS Level Per Nursing on Admit: 4+=Very High NITIN ELLINGTON MD Oct 19, 2018 09:39
[2018-10-19] MEDS: ENOXAPARIN 30 MG/0.3 ML (LOVENOX) SYR SC SCH (10:58)
[2018-10-19 12:32] VITALS: BP 119/82
== END 2018-10-19 13:20 | disposition home or self-care (01) | DRG 391 ==
LOC: EDUNIT# 16:05 → ER 16:05 → UNDOADMOB 18:45 → 4TH 18:45 → OBSVTOIN 10-18 12:48 → INTOOBSV 10-18 12:48 → OBSVTOIN 10-18 12:49 → UNDODISIN 10-19 13:20
PROVIDERS: ADMIT Internal Medicine; ATTEND Internal Medicine
DX: K57.32 Diverticulitis of large intestine without perforation or abscess without bleeding (principal); E43 Unspecified severe protein-calorie malnutrition; J43.9 Emphysema, unspecified; F17.210 Nicotine dependence, cigarettes, uncomplicated; M81.0 Age-related osteoporosis without current pathological fracture; F10.20 Alcohol dependence, uncomplicated; E87.6 Hypokalemia; I10 Essential (primary) hypertension; F41.9 Anxiety disorder, unspecified; F43.10 Post-traumatic stress disorder, unspecified; F31.9 Bipolar disorder, unspecified; F60.9 Personality disorder, unspecified
CPT/HCPCS: 36415; 71045; 74177; 80048; 80053; 81000; 82784; 83516; 83605; 83690; 83735; 84100; 84484; 85025; 85027; 85610; 85730; 87015; 87040; 87045; 87046; 87070; 87077; 87088; 87205; 87324; 87328; 87329; 87449; 87804; 87899; 89055; 93005; 94640; 94760; G0378

== ENCOUNTER 2019-01-28 06:03 | Emergency (ER) | payer SELFPAY ==
[~2019-01-28] VITALS: Ht 175 cm; Wt 72.7 kg
[~2019-01-28 06:03] MED LIST changes: +CIPR500T4 PO; +METR-145 PO
[2019-01-28] MEDS ORDERED: NS IV 1000 ML 1,000 ML IV ONE ×2 (06:09→06:41)
[2019-01-28 06:28] LABS: BASOPHILS % (AUTO) 0 % (0-10); EOSINOPHILS # (AUTO) 0.1 10^3/uL (0.0-0.3); EOSINOPHILS % (AUTO) 2 % (0-10); HEMATOCRIT 38 % (40-54); HEMOGLOBIN 12.5 G/DL (13.3-17.7); LYMPHOCYTES # (AUTO) 1.7 X 10^3 (1.0-4.0); LYMPHOCYTES % (AUTO) 26 % (12-44); MEAN CORPUSCULAR HEMOGLOBIN 27 PG (25-34); MEAN CORPUSCULAR HGB CONC 33 G/DL (32-36); MEAN CORPUSCULAR VOLUME 81 FL (80-99); MEAN PLATELET VOLUME 9.2 FL (7.4-10.4); MONOCYTES # (AUTO) 0.6 X 10^3 (0.0-1.0); MONOCYTES % (AUTO) 9 % (0-12); NEUTROPHILS # (AUTO) 3.9 X 10^3 (1.8-7.8); NEUTROPHILS % (AUTO) 62 % (42-75); PLATELET COUNT 227 10^3/uL (130-400); RED CELL DISTRIBUTION WIDTH 19.9 % (10.0-14.5); WHITE BLOOD COUNT 6.3 10^3/uL (4.3-11.0)
[2019-01-28 06:37] LABS: INR 0.9 (0.8-1.4); PROTHROMBIN TIME PATIENT 12.6 SEC (12.2-14.7)
[2019-01-28 06:43] LABS: ALANINE AMINOTRANSFERASE 33 U/L (0-55); ALBUMIN 4.1 GM/DL (3.2-4.5); ALKALINE PHOSPHATASE 88 U/L (40-136); BILIRUBIN,TOTAL 0.5 MG/DL (0.1-1.0); BUN/CREATININE RATIO 16; CALCIUM 8.6 MG/DL (8.5-10.1); CARBON DIOXIDE 25 MMOL/L (21-32); CHLORIDE 101 MMOL/L (98-107); CREATININE SERUM 0.69 MG/DL (0.60-1.30); GFR ESTIMATED > 60; GLUCOSE 116 MG/DL (70-105); POTASSIUM 3.1 MMOL/L (3.6-5.0); SODIUM 144 MMOL/L (135-145); TOTAL PROTEIN 6.7 GM/DL (6.4-8.2)
[2019-01-28] MEDS ORDERED: RT-ALBUTEROL/IPRATROPIUM 3 ML (DUONEB) VIAL INH ONE (06:45)
--- NOTE | 2019-01-28 06:46 | ED General ---
General Chief Complaint: Cough/Cold/Flu Symptoms Stated Complaint: SORE THROAT Nursing Triage Note: Pt ambulates to RM 7 via [facility] with c/o overall malaise, vomiting, diarrhea, fever/chills, productive cough and SOB x 1 wk. Pt denies taking any OTC medication for fever or GI probs. PT is 91% on RA on arrival, put on 2L O2 via NH. Pt reports Hx of COPD. Pt denies any chest pain at this time. Pt is A&O x4. Nursing Sepsis Screen: No Definite Risk Source of Information: Patient, EMS Exam Limitations: No Limitations History of Present Illness Date Seen by Provider: Jan 28, 2019 Time Seen by Provider: 06:01 Initial Comments This 58-year-old man presents to the emergency room via EMS after being ill for more than a week. Symptoms started with vomiting and diarrhea over a week ago. He no longer has the vomiting or diarrhea and now feels constipated. He has had consistent symptoms of productive cough and shortness of breath. He complains of fever and chills with temperature at home of 102 four days ago. He is afebrile now. He does have COPD and has an oxygen saturation of 91 percent on room air. He is notably tachycardic. He complains of some suprapubic di scomfort. He was ambulatory for EMS on scene. Patient is accustomed to drinking alcohol daily. Allergies and Home Medications Allergies Coded Allergies: No Known Drug Allergies (Unverified , 08/05/18) Home Medications Acetaminophen 500 Mg Tablet, 1,000 MG PO Q6H PRN for PAIN-MILD, (Reported) Albuterol Sulfate 6.7 Gm Hfa.aer.ad, 2 PUFF INH Q4H PRN for SHORTNESS OF BREATH, (Reported) Ciprofloxacin HCl 500 Mg Tablet, 500 MG PO BID Prescribed by: NITIN ELLINGTON on 10/19/18927 Ciprofloxacin HCl 500 Mg Tablet, 500 MG PO BID P[facility] INSPECTOR SUNDAY AT [facility] Prescribed by: NITIN ELLINGTON on 10/19/18 1233 Folic Acid 1 Mg Tablet, 1 MG PO DAILY@0700 Prescribed by: NITIN ELLINGTON on 10/03/18 1039 Metronidazole 500 Mg Tablet, 500 MG PO TID Prescribed by: NITIN ELLINGTON on 10/19/18927 Metronidazole 500 Mg Tablet, 500 MG PO TID P[facility] INSPECTOR AT [facility] ON SUNDAY Prescribed by: NITIN ELLINGTON on 10/19/18 1233 Multivitamin 1 Each Tablet, 1 TAB PO DAILY, (Reported) Tiotropium [place] 4 Gm Mist.inhal, 2 PUFF IH DAILY Prescribed by: RAFFY ELIZONDO on 08/08/18 1237 Patient Home Medication List Home Medication List Reviewed: Yes Review of Systems Review of Systems Constitutional: see HPI EENTM: no symptoms reported Respiratory: see HPI Cardiovascular: see HPI Gastrointestinal: see HPI Genitourinary: see HPI Musculoskeletal: no symptoms reported Skin: no symptoms reported Psychiatric/Neurological: No Symptoms Reported Hematologic/Lymphatic: No Symptoms Reported Immunological/Allergic: no symptoms reported Past [place]-Qotilx-Knwvzo Hx Past Med/Social Hx: Reviewed Nursing Past Med/Soc Hx Patient Social History Alcohol Beverage of Choice: Beer, Vodka Type Used: Cigarettes Recent Foreign Travel: No Contact w/Someone Who Travel: No Recent Infectious Disease Expo: No Recent Hopitalizations: No Immunizations Up To Date Tetanus Booster (TDap): Unknown Date of Pneumonia Vaccine: Sep 07, 2011 Date of Influenza Vaccine: Oct 22, 2016 Seasonal Allergies Seasonal Allergies: No Past Medical History Surgeries: Yes Orthopedic Respiratory: Yes COPD, Emphysema Currently Using CPAP: No Currently Using BIPAP: No Cardiac: Yes Hypotension Neurological: No Reproductive Disorders: No Genitourinary: No Gastrointestinal: Yes Polyps Musculoskeletal: Yes Osteoporosis Endocrine: No HEENT: No Loss of Vision: Denies Hearing Impairment: Denies Cancer: No Psychosocial: Yes (alcohol dependence) Anxiety, PTSD, Bipolar, Personality Disorder, Depression Integumentary: No Blood Disorders: No Adverse Reaction/Blood Tranf: No Family Medical History Reviewed Nursing Family Hx Asthma 19 MOTHER Cardiovascular disease G8 SISTER (blood clots) Colon cancer 19 MOTHER (polyps/hiatal hernia) Congenital disease 19 MOTHER (nuerogenic syncope) Neoplasm No Pertinent Family Hx, Asthma, Cancer, DVT/PE Physical Exam-Suspected Sepsis Physical Exam Vital Signs Vital Signs - First Documented 01/28/19 01/28/19 06:03 06:06 Temp 36.3 Pulse 120 Resp 20 B/P (MAP) 118/83 (95) Pulse Ox 91 O2 Delivery Room Air O2 Flow Rate 2.00 Capillary Refill : Less Than 3 Seconds Blood Pressure Mean: 95 POS Height, Weight, BMI Height: 5'7.00" Weight: 98lbs. 0.0oz. 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 Norm as Tested Skin: normal color, warm/dry Focused Exam Lactate Level 01/28/19 06:14: Lactic Acid Level 4.23*H 01/28/19 08:17: Lactic Acid Level 3.02*H Lactic Acid Level Progress/Results/Core Measures Suspected Sepsis Recent Fever Within 48 Hours: No Infection Criteria Present: None New/Unexplained Altered Menta: No Sepsis Screen: No Definite Risk SIRS Temperature: Pulse: 120 Respiratory Rate: 20 Laboratory Tests 01/28/19 06:14: White Blood Count 6.3 Blood Pressure 118 /83 Mean: 95 01/28/19 06:14: Lactic Acid Level 4.23*H 01/28/19 08:17: Lactic Acid Level 3.02*H Laboratory Tests 01/28/19 06:14: Creatinine 0.69, INR Comment 0.9, Platelet Count 227, Total Bilirubin 0.5 Results/Orders Lab Results Laboratory Tests Test 01/28/19 06:14 01/28/19 06:59 01/28/19 08:17 Range/Units White Blood Count 6.3 4.3-11.0 10^3/uL Red Blood Count 4.70 4.35-5.85 10^6/uL Hemoglobin 12.5 L 13.3-17.7 G/DL Hematocrit 38 L 40-54 % Mean Corpuscular Volume 81 80-99 FL Mean Corpuscular Hemoglobin 27 25-34 PG Mean Corpuscular Hemoglobin Concent 33 32-36 G/DL Red Cell Distribution Width 19.9 H 10.0-14.5 % Platelet Count 227 130-400 10^3/uL Mean Platelet Volume 9.2 7.4-10.4 FL Neutrophils (%) (Auto) 62 42-75 % Lymphocytes (%) (Auto) 26 12-44 % Monocytes (%) (Auto) 9 0-12 % Eosinophils (%) (Auto) 2 0-10 % Basophils (%) (Auto) 0 0-10 % Neutrophils # (Auto) 3.9 1.8-7.8 X 10^3 Lymphocytes # (Auto) 1.7 1.0-4.0 X 10^3 Monocytes # (Auto) 0.6 0.0-1.0 X 10^3 Eosinophils # (Auto) 0.1 0.0-0.3 10^3/uL Basophils # (Auto) 0.0 0.0-0.1 10^3/uL Prothrombin Time 12.6 12.2-14.7 SEC INR Comment 0.9 0.8-1.4 Activated Partial Thromboplast Time 30 24-35 SEC Sodium Level 144 135-145 MMOL/L Potassium Level 3.1 L 3.6-5.0 MMOL/L Chloride Level 101 98-107 MMOL/L Carbon Dioxide Level 25 21-32 MMOL/L Anion Gap 18 H 5-14 MMOL/L Blood Urea Nitrogen 11 7-18 MG/DL Creatinine 0.69 0.60-1.30 MG/DL Estimat Glomerular Filtration Rate > 60 BUN/Creatinine Ratio 16 Glucose Level 116 H 70-105 MG/DL Lactic Acid Level 4.23 *H 3.02 *H 0.50-2.00 MMOL/L Calcium Level 8.6 8.5-10.1 MG/DL Corrected Calcium 8.5 8.5-10.1 MG/DL Total Bilirubin 0.5 0.1-1.0 MG/DL Aspartate Amino Transf (AST/SGOT) 65 H 5-34 U/L Alanine Aminotransferase (ALT/SGPT) 33 0-55 U/L Alkaline Phosphatase 88 40-136 U/L C-Reactive Protein High Sensitivity 0.50 0.00-0.50 MG/DL Total Protein 6.7 6.4-8.2 GM/DL Albumin 4.1 3.2-4.5 GM/DL Serum Alcohol 199 H <10 MG/DL Urine Color YELLOW Urine Clarity CLEAR Urine pH 6.0 5-9 Urine Specific [place] >=1.030 1.016-1.022 Urine Protein 1+ H NEGATIVE Urine Glucose (UA) NEGATIVE NEGATIVE Urine Ketones TRACE H NEGATIVE Urine Nitrite NEGATIVE NEGATIVE Urine Bilirubin NEGATIVE NEGATIVE Urine Urobilinogen 1.0 < = 1.0 MG/DL Urine Leukocyte Esterase NEGATIVE NEGATIVE Urine RBC (Auto) NEGATIVE NEGATIVE Urine RBC NONE /HPF Urine WBC RARE /HPF Urine Squamous Epithelial Cells RARE /HPF Urine Crystals PRESENT H /LPF Urine Calcium Oxalate Crystals FEW H /LPF Urine Bacteria TRACE /HPF Urine Casts NONE /LPF Urine Mucus SMALL H /LPF Urine Culture Indicated NO My Orders Orders - BRANDY OLIVA MD Cbc With Automated Diff (01/28/19 06:09) Comprehensive Metabolic Panel (01/28/19 06:09) Blood Culture (01/28/19 06:09) Urinalysis (01/28/19 06:09) Urine Culture (01/28/19 06:09) Protime With Inr (01/28/19 06:09) Partial Thromboplastin Time (01/28/19 06:09) Ed Iv/Invasive Line Start (01/28/19 06:09) Ed Iv/Invasive Line Start (01/28/19 06:09) Vital Signs Adult Sepsis Patie Q15M (01/28/19 06:09) O2 (01/28/19 06:09) Remove Rings In Anticipation O (01/28/19 06:09) Lactic Acid Analyzer (01/28/19 06:09) Chest Pa/Lat (2 View) (01/28/19 06:09) Ns Iv 1000 Ml (Sodium Chloride 0.9%) (01/28/19 06:09) Abdomen/Kub 1view (01/28/19 06:11) Albuterol/Ipra Inhalation Soln (Duoneb I (01/28/19 06:45) Svn Small Volume Nebulizer (01/28/19 06:40) Ns Iv 1000 Ml (Sodium Chloride 0.9%) (01/28/19 06:41) Alcohol (01/28/19 06:46) Potassium Cl 10meq/50ml Ivpb (Kcl 10 Meq (01/28/19 07:00) Hs C Reactive Protein (01/28/19 07:12) Methylprednisolone Sod Succ (Solu-Medrol (01/28/19 10:45) Medications Given in ED Current Medications Medications Dose Ordered Sig/Arabella Route Start Time Stop Time Status Last Admin Dose Admin Methylprednisolone Sodium Succinate 40 mg ONCE ONCE IV 01/28/19 10:45 01/28/19 10:46 DC 01/28/19 10:53 40 MG Vital Signs/I&O 01/28/19 11:37 Temp 37.0 Pulse 82 Resp 16 B/P (MAP) 111/75 Pulse Ox 98 O2 Delivery Nasal Cannula O2 Flow Rate 2.00 Capillary Refill : Less Than 3 Seconds Blood Pressure Mean: 95 POS Progress Note #1: Time: 06:49 Progress Note Patient was seen and examined. Septic workup is being pursued. 2 L of IV saline have been ordered. Lactic acid was greater than 4. So far no source of infection has been identified. Nasal cannula oxygen support is been provided. A DuoNeb treatment has been ordered as air movement was rather poor on exam. Potassium chloride 10 mEq has been ordered for replacement by IV route. Progress Note #2: Time: 11:01 Progress Note Patient has subjectively improved after treatments. Heart rate has improved after IV fluids. DuoNeb treatment improved her breathing. Solu-Medrol 40 mg IV is being given for further treatment of his COPD. Patient had elevated lactic acid that is trending down on repeat draw. The exact cause of his lactic acidosis is uncertain and may be multifactorial. I suspect hydration status and COPD exacerbation are contributing factors. His significant lactic acidosis warrants admission. No beds are available at [facility]. Patient and Dr. Castro are agreeable to transfer to [facility]. A bed has been procured. No evidence of bacterial infection has been identified through x-ray, urinalysis, WBC or CRP. Therefore true sepsis is not suspected. Diagnostic Imaging Diagonstic Imaging: Xray Plain Films/CT/US/NM/MRI: chest Comments Chest x-ray viewed by me and report reviewed. See report below: NAME: KACI HILTON [facility] REC#: [id number] PT STATUS: REG ER : 1960 PHYSICIAN: BRANDY OLIVA MD ADMIT DATE: 01/28/19/ER Signed Date of Exam:01/28/19 CHEST PA/LAT (2 VIEW) EXAMINATION: CHEST (PA AND LATERAL) CLINICAL INDICATION: 58-year-old male, weakness. COMPARISON: October 16, 2018. FINDINGS: Heart size and mediastinal contours are unremarkable. There is no identified pneumothorax. There is no pleural effusion. The lungs are hyperexpanded. There is no identified focal airspace consolidation. There are multiple left-sided rib deformities again noted. There is a redemonstrated fracture deformity of the left clavicle and also of the right clavicle. IMPRESSION: 1. No identified acute cardiopulmonary abnormality. Dictated by: Dictated on workstation # [id number] Dict: 01/28/1953 Trans: 01/28/19927 [facility] [id number] Interpreted by: NIXON FARMER MD Electronically signed by: NIXON FARMER MD 01/28/19927 Diagonstic Imaging: Xray Plain Films/CT/US/NM/MRI: abdomen, pelvis Comments KUB viewed by me and report reviewed. See report below: NAME: KACI HILTON [facility] REC#: [id number] PT STATUS: REG ER : 1960 PHYSICIAN: BRANDY OLIVA MD ADMIT DATE: 01/28/19/ER Signed Date of Exam:01/28/19 ABDOMEN/KUB 1VIEW EXAMINATION: Abdominal radiographs, single supine view. DATE: January 28, 2019. CLINICAL INDICATION: 58-year-old male, weakness. Nausea, vomiting, diarrhea. COMPARISON: CT abdomen and pelvis October 16, 2018. COMMENTS: There are gas filled segments of small and large bowel which are not abnormally distended. There is no identified free intraperitoneal air on supine evaluation, pneumatosis, or portal venous gas. There is a punctate 1 to 2 mm calcification projecting near the location of the left kidney. IMPRESSION: 1. Unremarkable bowel gas pattern. 2. 1 to 2 mm calcification which is near the location of left kidney and may relate to a left renal stone. There is note of a nonobstructing 2 mm left renal stone on prior CT abdomen and pelvis exam of October 16, 2018. Dictated by: Dictated on workstation # [id number] Dict: 01/28/1954 Trans: 01/28/19926 [facility] [id number] Interpreted by: NIXON FARMER MD Electronically signed by: NIXON FARMER MD 01/28/19926 Departure Impression Primary Impression: Lactic acidosis Additional Impressions: Hypokalemia COPD exacerbation Hypovolemia Alcohol dependence Qualified Codes: F10.20 - Alcohol dependence, uncomplicated Disposition: XF SHT-TRM HOSP Condition: Improved Transfer Transfer Reason: Diversion Time Spoke to Accepting Phy: 09:50 Transfer Progress Notes Patient accepted for admission at [facility] due to diversion at [facility]. Dr. Castro is the accepting attending physician. Transfer Facility: [facility] Method of Transfer: EMS Departure-Patient Inst. Decision time for Depature: 11:37 Referrals: [facility] (PCP) Primary Care Physician RIC LI MD (Family) Primary Care Physician Copy Copies To 1: DEEPTHI MAURER JOSHUA T MD Jan 28, 2019 06:45 POS
--- NOTE | 2019-01-28 06:50 | NUR ---
report given to Analia Sherman RN at this time.
[2019-01-28] MEDS ORDERED: POTASSIUM CL 10MEQ/50ML IVPB 50 ML IV ONE (07:00)
--- NOTE | 2019-01-28 07:00 | NUR ---
IN ROOM AT THIS TIME.
--- NOTE | 2019-01-28 07:02 | NUR ---
RT CONTACTED FOR BREATHING TX.
--- NOTE | 2019-01-28 07:03 | Diagnostic Imaging Report ---
EXAMINATION: CHEST (PA AND LATERAL) CLINICAL INDICATION: 58-year-old male, weakness. COMPARISON: October 16, 2018. FINDINGS: Heart size and mediastinal contours are unremarkable. There is no identified pneumothorax. There is no pleural effusion. The lungs are hyperexpanded. There is no identified focal airspace consolidation. There are multiple left-sided rib deformities again noted. There is a redemonstrated fracture deformity of the left clavicle and also of the right clavicle. IMPRESSION: 1. No identified acute cardiopulmonary abnormality. Dictated by: Dictated on workstation # [id number]
--- NOTE | 2019-01-28 07:04 | Diagnostic Imaging Report ---
EXAMINATION: Abdominal radiographs, single supine view. DATE: January 28, 2019. CLINICAL INDICATION: 58-year-old male, weakness. Nausea, vomiting, diarrhea. COMPARISON: CT abdomen and pelvis October 16, 2018. COMMENTS: There are gas filled segments of small and large bowel which are not abnormally distended. There is no identified free intraperitoneal air on supine evaluation, pneumatosis, or portal venous gas. There is a punctate 1 to 2 mm calcification projecting near the location of the left kidney. IMPRESSION: 1. Unremarkable bowel gas pattern. 2. 1 to 2 mm calcification which is near the location of left kidney and may relate to a left renal stone. There is note of a nonobstructing 2 mm left renal stone on prior CT abdomen and pelvis exam of October 16, 2018. Dictated by: Dictated on workstation # [id number]
[2019-01-28 07:07] LABS: BILIRUBIN,URINE NEGATIVE (NEGATIVE); CLARITY,URINE CLEAR; COLOR,URINE YELLOW; GLUCOSE, URINE (UA) NEGATIVE (NEGATIVE); KETONES,URINE TRACE (NEGATIVE); LEUKOCYTE ESTERASE ,URINE NEGATIVE (NEGATIVE); NITRITE,URINE NEGATIVE (NEGATIVE); PROTEIN,URINE 1+ (NEGATIVE)
[2019-01-28 07:17] LABS: BACTERIA,URINE TRACE /HPF; CALCIUM OXALATE CRYSTALS,UR FEW /LPF; SQUAMOUS EPITHELIAL CELL,UR RARE /HPF; WBC,URINE RARE /HPF
--- NOTE | 2019-01-28 09:04 | NUR ---
RESTING IN BED. NOTIFIED THAT EVERYTHING WAS BACK ET WE WERE WAITING ON DR WHO IS SUTURING AT THIS TIME.
--- NOTE | 2019-01-28 09:30 | NUR ---
PT'S PULSE OX 89% AFTER GETTING UP AND GOING TO THE BATHROOM WITHOUT HIS OXYGEN.
--- NOTE | 2019-01-28 09:45 | NUR ---
IN ROOM AT THIS TIME
--- NOTE | 2019-01-28 10:41 | NUR ---
DISPATCH AND SHIFT CAPTAIN NOTIFIED OF NEEDING A TRANSFER TO [place].
[2019-01-28] MEDS ORDERED: methylPREDNISolone 40 MG/ML (Solu-MEDROL) VIAL IV ONE (10:45)
[2019-01-28 11:37] VITALS: BP 111/75
== END 2019-01-28 11:37 | disposition short-term general hospital (02) ==
LOC: EDUNIT# 06:03 → ER 06:05
DX: E87.2 Acidosis (principal); E87.6 Hypokalemia; J44.1 Chronic obstructive pulmonary disease with (acute) exacerbation; E86.1 Hypovolemia; F10.20 Alcohol dependence, uncomplicated; F41.9 Anxiety disorder, unspecified; F43.10 Post-traumatic stress disorder, unspecified; F31.9 Bipolar disorder, unspecified; F60.9 Personality disorder, unspecified; Z82.49 Family history of ischemic heart disease and other diseases of the circulatory system; Z80.0 Family history of malignant neoplasm of digestive organs; Y90.6 Blood alcohol level of 120-199 mg/100 ml
CPT/HCPCS: 36415; 71046; 74018; 80053; 80320; 81000; 83605; 85025; 85610; 85730; 86141; 87040; 87088; 94640

== ENCOUNTER 2019-07-21 14:22 | Emergency (ER) | payer OTHER ==
[~2019-07-21] VITALS: Ht 170.2 cm; Wt 45.4 kg
[~2019-07-21 14:22] MED LIST changes: -TRAM50TA2 PO; +TRM50T PO
[2019-07-21] MEDS ORDERED: LACTATED RINGERS 1,000 ML IV ONE ×2 (14:34→16:58)
[2019-07-21] MEDS ORDERED: fentaNYL INJECTION 100 MCG/2 ML AMP IVP STA (14:34)
[2019-07-21 14:40] LABS: BASOPHILS % (AUTO) 1 % (0-10); EOSINOPHILS # (AUTO) 0.1 10^3/uL (0.0-0.3); EOSINOPHILS % (AUTO) 2 % (0-10); HEMATOCRIT 35 % (40-54); HEMOGLOBIN 10.8 G/DL (13.3-17.7); LYMPHOCYTES # (AUTO) 1.1 X 10^3 (1.0-4.0); LYMPHOCYTES % (AUTO) 37 % (12-44); MEAN CORPUSCULAR HEMOGLOBIN 28 PG (25-34); MEAN CORPUSCULAR HGB CONC 31 G/DL (32-36); MEAN CORPUSCULAR VOLUME 89 FL (80-99); MEAN PLATELET VOLUME 8.9 FL (7.4-10.4); MONOCYTES # (AUTO) 0.5 X 10^3 (0.0-1.0); MONOCYTES % (AUTO) 15 % (0-12); NEUTROPHILS # (AUTO) 1.4 X 10^3 (1.8-7.8); NEUTROPHILS % (AUTO) 45 % (42-75); PLATELET COUNT 112 10^3/uL (130-400); RED CELL DISTRIBUTION WIDTH 26.8 % (10.0-14.5)
[2019-07-21 14:50] LABS: ALBUMIN 3.7 GM/DL (3.2-4.5)
[2019-07-21 14:51] LABS: CHLORIDE 104 MMOL/L (98-107); POTASSIUM 2.9 MMOL/L (3.6-5.0); SODIUM 147 MMOL/L (135-145)
[2019-07-21 14:53] LABS: GLUCOSE 96 MG/DL (70-105); TOTAL PROTEIN 6.6 GM/DL (6.4-8.2)
[2019-07-21 14:54] LABS: CARBON DIOXIDE 30 MMOL/L (21-32)
[2019-07-21 14:55] LABS: BILIRUBIN,TOTAL 0.5 MG/DL (0.1-1.0)
[2019-07-21 14:57] LABS: ALKALINE PHOSPHATASE 147 U/L (40-136); GFR ESTIMATED > 60
[2019-07-21 14:58] LABS: BUN/CREATININE RATIO 8
[2019-07-21 15:00] LABS: ALANINE AMINOTRANSFERASE 44 U/L (0-55)
--- NOTE | 2019-07-21 15:00 | Diagnostic Imaging Report ---
INDICATION: Fall down stairs. TIME OF EXAM: 02:46 p.m. FINDINGS: There are mid shaft fractures involving bilateral clavicle, which appear to be old. Lungs are free of acute infiltrates. No parenchymal contusion is seen. No hemothorax is identified. No pneumothorax is identified. Old left-sided upper posterior rib fractures are again noted and similar to chest radiograph from 2019. IMPRESSION: Chronic changes. No acute abnormality is detected. Dictated by: Dictated on workstation # [id number]
--- NOTE | 2019-07-21 15:11 | Diagnostic Imaging Report ---
INDICATION: Fall. TIME OF EXAM: 02:48 p.m. FINDINGS: Femoroacetabular alignment is normal. Both femoral necks appear to be intact. The rami are intact. SI joints and symphysis are non-widened. No fractures are seen. IMPRESSION: No acute bony abnormality is detected. Dictated by: Dictated on workstation # [id number]
--- NOTE | 2019-07-21 15:22 | Diagnostic Imaging Report ---
PROCEDURE: CT head and CT cervical spine without contrast. TECHNIQUE: Multiple contiguous axial images were obtained through the brain and cervical spine without the use of intravenous contrast. Sagittal and coronal reformations through the cervical spine were then performed. Auto Exposure Controls were utilized during the CT exam to meet ALARA standards for radiation dose reduction. INDICATION: Fall down 13 stairs. Scalp contusion. Neck pain. COMPARISON: 08/20/2018. FINDINGS: CT HEAD: No large acute territorial ischemia, mass, or hemorrhage. No midline shift or mass effect. The ventricles, cortical sulci, and basilar cisterns are patent and unremarkable. The calvarium is intact. Retained secretions are seen in the bilateral maxillary sinuses, right greater than left, with mucosal thickening in the bilateral ethmoid sinuses. The mastoid air cells are well pneumatized. CT CERVICAL SPINE: No acute fracture or dislocation is seen in the cervical spine. No focal osseous lesions. Stable chronic compression deformities are visualized at the C7 and T2 levels. The craniocervical junction is well-maintained. Mild degenerative changes are seen in the cervical spine with disc osteophyte complexes and uncovertebral arthropathy. Soft tissues of the neck are unremarkable. Scarring and architectural distortion are again noted in the lung apices, right greater than left. Centrilobular emphysema is present. IMPRESSION: 1. No hemorrhage or focal intra-axial mass. No CT evidence of large acute territorial ischemia. 2. No acute fracture or dislocation in the cervical spine. 3. Paranasal sinus disease, greatest in the right maxillary sinus. 4. Centrilobular emphysema in the lung apices with scarring and architectural distortion present, greatest on the right. 5. Old compression deformities at the C7 and T2 levels. These are stable compared to the prior exam. Dictated by: Dictated on workstation # [id number]
[2019-07-21] MEDS ORDERED: HOLD METFORMIN - RECEIVED CONTRAST 20 ML VIAL IV SCH (15:30)
[2019-07-21] MEDS ORDERED: NS 100 ML (IVPB) BAG IV ONE (15:30)
[2019-07-21] MEDS ORDERED: IOHEXOL 350 MG/ML 100 ML (OMNIPAQUE 350) VIAL IV ONE (15:30)
--- NOTE | 2019-07-21 15:30 | ED Trauma-Multisystem ---
General Chief Complaint: Trauma EMS/Air Arrival Activat Stated Complaint: FALL Nursing Triage Note: PT STATES HE FELL DOWN APPROX 12-13 STAIRS. Source of Information: Patient Exam Limitations: No Limitations History of Present Illness Date Seen by Provider: Jul 21, 2019 Time Seen by Provider: 14:25 Initial Comments Here by EMS with report of fall down approximately 12-13 stairs. Apparently, his glasses are not working well and he states that they are rigged. When looking through he did not see a step and missed it and then fell down 12-13 steps. Denies loss of consciousness. Landed in dirt at the bottom of the steps. Does smell of alcohol. Complaining of low back pain that he states is quite severe as well as head and neck pain. Does state shortness of breath. O2 sat noted to be in the 80s on 2 L. Denies nausea or vomiting. Denies chest pain or abdominal pain. Patient is mildly agitated. Patient admits to drinking quite a bit of alcohol daily and states that monitor is his typical choice. Admits to drinking quite a bit today. Does complain of pain to the left leg that he started is due to a blood clot. He has not had that evaluated but that is his diagnosis. He is not on blood thinners for treatment. Occurred: Just Prior to Arrival (approximately 30 minutes prior to arrival) Severity: Moderate, Severe Pain/Injury Location: Back, Neck Method of Injury: Fall Modifying Factors: Immobilization; No Movement Loss of Consciousness: No Loss of Consciousness, Unsure Associated Symptoms (Fall): No Abdominal Pain, No Chest Pain; Headache, Muscle Spasms; No Nausea/Vomiting; Neck Pain, Slurred Speech Allergies and Home Medications Allergies Coded Allergies: No Known Drug Allergies (Unverified , 08/05/18) Home Medications Acetaminophen 500 Mg Tablet, 1,000 MG PO Q6H PRN for PAIN-MILD, (Reported) Albuterol Sulfate 6.7 Gm Hfa.aer.ad, 2 PUFF INH Q4H PRN for SHORTNESS OF BREATH, (Reported) Ciprofloxacin HCl 500 Mg Tablet, 500 MG PO BID Prescribed by: NITIN ELLINGTON on 10/19/18 0928 Ciprofloxacin HCl 500 Mg Tablet, 500 MG PO BID TELETYPESETTER MONITOR SUNDAY AT [facility] Prescribed by: NITIN ELLINGTON on 10/19/18 1233 Folic Acid 1 Mg Tablet, 1 MG PO DAILY@0700 Prescribed by: NITIN ELLINGTON on 10/03/18 1039 Metronidazole 500 Mg Tablet, 500 MG PO TID Prescribed by: NITIN ELLINGTON on 10/19/18 0928 Metronidazole 500 Mg Tablet, 500 MG PO TID TELETYPESETTER MONITOR AT [facility] ON SUNDAY Prescribed by: NITIN ELLINGTON on 10/19/18 1233 Multivitamin 1 Each Tablet, 1 TAB PO DAILY, (Reported) Tiotropium [place] 4 Gm Mist.inhal, 2 PUFF IH DAILY Prescribed by: RAFFY ELIZONDO on 08/08/18 1237 Patient Home Medication List Home Medication List Reviewed: Yes Review of Systems Review of Systems Constitutional: see HPI; No chills, No fever Eyes: No Symptoms Reported Ears: No Symptoms Reported Nose: No Symptoms Reported Mouth: No Symptoms Reported Throat: No Symptoms to Report Respiratory: short of breath; No wheezing Cardiovascular: Denies Chest Pain; Edema (left leg that the patient reports as a blood clot per his diagnoses.) Gastrointestinal: No abdominal pain, No nausea, No vomiting Genitourinary: no symptoms reported Musculoskeletal: see HPI, back pain, joint pain, muscle pain All Other Systems Reviewed Negative Unless Noted: Yes Past Pmqdurd-Xpeqfo-Loxweo Hx Past Med/Social Hx: Reviewed Nursing Past Med/Soc Hx Patient Social History Alcohol Use: Regular Use Number of Drinks Today: FF Alcohol Beverage of Choice: Beer, Vodka Recreational Drug Use: No Smoking Status: Current Everyday Smoker Type Used: Cigarettes 2nd Hand Smoke Exposure: Yes Recent Foreign Travel: No Contact w/Someone Who Travel: No Recent Infectious Disease Expo: No Recent Hopitalizations: No Physical Abuse: No Sexual Abuse: No Mistreated: No Fear: No Immunizations Up To Date Tetanus Booster (TDap): Unknown Date of Pneumonia Vaccine: Sep 07, 2011 Date of Influenza Vaccine: Oct 22, 2016 Seasonal Allergies Seasonal Allergies: No Past Medical History Surgeries: Yes Orthopedic Respiratory: Yes COPD, Emphysema Currently Using CPAP: No Currently Using BIPAP: No Cardiac: Yes Hypotension Neurological: No Reproductive Disorders: No Genitourinary: No Gastrointestinal: Yes Polyps Musculoskeletal: Yes Osteoporosis Endocrine: No HEENT: No Loss of Vision: Denies Hearing Impairment: Denies Cancer: No Psychosocial: Yes (alcohol dependence) Anxiety, PTSD, Bipolar, Personality Disorder, Depression Integumentary: No Blood Disorders: No Adverse Reaction/Blood Tranf: No Family Medical History Reviewed Nursing Family Hx Asthma 19 MOTHER Cardiovascular disease G8 SISTER (blood clots) Colon cancer 19 MOTHER (polyps/hiatal hernia) Congenital disease 19 MOTHER (nuerogenic syncope) Neoplasm No Pertinent Family Hx, Asthma, Cancer, DVT/PE Physical Exam Vital Signs Vital Signs - First Documented 07/21/19 14:27 Temp 37.0 Pulse 99 Resp 19 B/P (MAP) 114/81 (92) Pulse Ox 94 O2 Delivery Nasal Cannula Height, Weight, BMI Height: 5'7.00" Weight: 98lbs. 0.0oz. 44.882421xd; 15.00 BMI Method:Stated General Appearance: Chronically ill, Mild Distress, Thin Head: No Active Bleeding, No Mcdaniels's Sign, No Contusions, No Ecchymosis Ears, Nose, Throat: Hearing Grossly Normal, No Evidence of ENT Injury, No Dental Injury Neck: Tender Midline (low midline), Other (remains in c-collar) Cardiovascular: No Murmur, Tachycardia Respiratory: Lungs Clear, Normal Breath Sounds Gastrointestinal: No Pulsatile Mass, Non Tender, Soft Back: Normal Inspection, No CVA Tenderness, Other (no vertebral tenderness n oted on exam although states that he is hurting in the low back upper region. No step-offs noted evaluated after logroll with C-spine held and spinal alignment maintained.) Neurologic/Psychiatric: Alert, Oriented x3 Skin: Normal Color, Warm/Dry Progress/Results/Core Measures Results/Orders Lab Results Laboratory Tests Test 07/21/19 14:30 Range/Units White Blood Count 3.0 L 4.3-11.0 10^3/uL Red Blood Count 3.91 L 4.35-5.85 10^6/uL Hemoglobin 10.8 L 13.3-17.7 G/DL Hematocrit 35 L 40-54 % Mean Corpuscular Volume 89 80-99 FL Mean Corpuscular Hemoglobin 28 25-34 PG Mean Corpuscular Hemoglobin Concent 31 L 32-36 G/DL Red Cell Distribution Width 26.8 H 10.0-14.5 % Platelet Count 112 L 130-400 10^3/uL Mean Platelet Volume 8.9 7.4-10.4 FL Neutrophils (%) (Auto) 45 42-75 % Lymphocytes (%) (Auto) 37 12-44 % Monocytes (%) (Auto) 15 H 0-12 % Eosinophils (%) (Auto) 2 0-10 % Basophils (%) (Auto) 1 0-10 % Neutrophils # (Auto) 1.4 L 1.8-7.8 X 10^3 Lymphocytes # (Auto) 1.1 1.0-4.0 X 10^3 Monocytes # (Auto) 0.5 0.0-1.0 X 10^3 Eosinophils # (Auto) 0.1 0.0-0.3 10^3/uL Basophils # (Auto) 0.0 0.0-0.1 10^3/uL Sodium Level 147 H 135-145 MMOL/L Potassium Level 2.9 L 3.6-5.0 MMOL/L Chloride Level 104 98-107 MMOL/L Carbon Dioxide Level 30 21-32 MMOL/L Anion Gap 13 5-14 MMOL/L Blood Urea Nitrogen 5 L 7-18 MG/DL Creatinine 0.60 0.60-1.30 MG/DL Estimat Glomerular Filtration Rate > 60 BUN/Creatinine Ratio 8 Glucose Level 96 70-105 MG/DL Calcium Level 8.0 L 8.5-10.1 MG/DL Corrected Calcium 8.2 L 8.5-10.1 MG/DL Total Bilirubin 0.5 0.1-1.0 MG/DL Aspartate Amino Transf (AST/SGOT) 66 H 5-34 U/L Alanine Aminotransferase (ALT/SGPT) 44 0-55 U/L Alkaline Phosphatase 147 H 40-136 U/L Total Protein 6.6 6.4-8.2 GM/DL Albumin 3.7 3.2-4.5 GM/DL Serum Alcohol 379 *H <10 MG/DL My Orders Orders - TRUDY STERLING MD Alcohol (07/21/19 14:34) Cbc With Automated Diff (07/21/19 14:34) Comprehensive Metabolic Panel (07/21/19 14:34) Ua Culture If Indicated (07/21/19 14:34) Ed Iv/Invasive Line Start (07/21/19 14:34) Lactated Ringers (Lr 1000 Ml Iv Solution (07/21/19 14:34) Fentanyl Injection (Sublimaze Injection (07/21/19 14:34) Chest 1 View, Ap/Pa Only (07/21/19 14:34) Pelvis (07/21/19 14:34) Ct Head/Cervical Spine Wo (07/21/19 14:34) Ct Chest/Abdomen/Pelvis W (07/21/19 ) Iohexol Injection (Omnipaque 350 Mg/Ml 1 (07/21/19 15:30) Received Contrast (Hold Metformin- Contr (07/21/19 15:30) Ns (Ivpb) (Sodium Chloride 0.9% Ivpb Bag (07/21/19 15:30) Protime With Inr (07/21/19 15:58) Partial Thromboplastin Time (07/21/19 15:58) Medications Given in ED Current Medications Medications Dose Ordered Sig/Arabella Route Start Time Stop Time Status Last Admin Dose Admin Iohexol 100 ml ONCE ONCE IV 07/21/19 15:30 07/21/19 15:31 DC 07/21/19 15:21 72 ML Lactated Ringer's 1,000 ml @ 0 mls/hr Q0M ONCE IV 07/21/19 14:34 07/21/19 14:36 DC 07/21/19 14:45 999 MLS/HR Sodium Chloride 100 ml ONCE ONCE IV 07/21/19 15:30 07/21/19 15:31 DC 07/21/19 15:21 80 ML Vital Signs/I&O 07/21/19 14:27 Temp 37.0 Pulse 99 Resp 19 B/P (MAP) 114/81 (92) Pulse Ox 94 O2 Delivery Nasal Cannula Blood Pressure Mean: 92 Progress Progress Note : Progress Note Seen and evaluated. IV, labs, chest x-ray, pelvis x-ray, CT head, neck, chest, abdomen and pelvis trauma scans. ATLS exam performed. Type II activation initiated prior to arrival. Fentanyl 50 g IV ordered for pain. LR 1 L bolus ordered. Monitor patient. 1552: L1 burst fracture with retropulsion noted and paraspinous hematoma noted. I did discuss the case with Dr. Nunez at [facility] in [place], [place] and she has declined transfer due to concerns about significant bleeding disorder secondary to patient's alcoholism and recommended transfer to [place]. I have added coags. Patient's platelets are 112. I will make contact with [facility]. 1633: I discussed the case with Dr. Doran [facility], on-call trauma services. We reviewed the case and he accepts patient for transfer to their ICU. Bed assignment given. Patient will go by [facility] due to concerns of expanding symptoms. Patient now complaining of num bness to buttocks and upper legs. 1642: I have reexamined the patient and he does have findings of saddle anesthesia with numbness from mid thigh up to lower buttocks on the inner aspect. States he feels like he has to urinate but can't although he is laying down. We will place Raines catheter. I have updated [facility]. Patient agrees to transfer. Patient was placed on nasal cannula at 3 L. He gets mildly hypoxic with that with sats in the mid 80s. Oxy-mask placed as he does mouth breathe some and O2 sats are in the low 90s. Does have history of COPD. Patient is afebrile and no concerns for COVID 19 at this point. Diagnostic Imaging Diagonstic Imaging: Xray Plain Films/CT/US/NM/MRI: chest [facility] [place], [place] NAME: YOBANIKACI S MED REC#: [id number] PT STATUS: REG ER : 1960 PHYSICIAN: TRUDY STERLING MD ADMIT DATE: 07/21/19/ER Draft Date of Exam:07/21/19 CHEST 1 VIEW, AP/PA ONLY INDICATION: Fall down stairs. TIME OF EXAM: 02:46 p.m. FINDINGS: There are mid shaft fractures involving bilateral clavicle, which appear to be old. Lungs are free of acute infiltrates. No parenchymal contusion is seen. No hemothorax is identified. No pneumothorax is identified. Old left-sided upper posterior rib fractures are again noted and similar to chest radiograph from 2019. IMPRESSION: Chronic changes. No acute abnormality is detected. Dictated on workstation # [id number] Dict: 07/21/19 1456 Trans: 07/21/[address] [place] [address] [id number] Interpreted by: DAYAN JOHNSON MD Electronically signed by: Diagonstic Imaging: Xray Plain Films/CT/US/NM/MRI: pelvis Comments [facility]. [place] NAME: YOBANIKACI S MED REC#: [id number] PT STATUS: REG ER : 1960 PHYSICIAN: TRUDY STERLING MD ADMIT DATE: 07/21/19/ER Draft Date of Exam:07/21/19 PELVIS INDICATION: Fall. TIME OF EXAM: 02:48 p.m. FINDINGS: Femoroacetabular alignment is normal. Both femoral necks appear to be intact. The rami are intact. SI joints and symphysis are non-widened. No fractures are seen. IMPRESSION: No acute bony abnormality is detected. Dictated on workstation # [id number] Dict: 07/21/19 1501 Trans: 07/21/19 1509 [id number] Interpreted by: DAYAN JOHNSON MD Electronically signed by: Radhansradha Imaging: CT Plain Films/CT/US/NM/MRI: c-spine, head Comments [facility] [place] NAME: KACI HILTON [facility] REC#: [id number] PT STATUS: REG ER : 1960 PHYSICIAN: TRUDY STERLING MD ADMIT DATE: 07/21/19/ER Draft Date of Exam:07/21/19 CT HEAD/CERVICAL SPINE WO PROCEDURE: CT head and CT cervical spine without contrast. TECHNIQUE: Multiple contiguous axial images were obtained through the brain and cervical spine without the use of intravenous contrast. Sagittal and coronal reformations through the cervical spine were then performed. Auto Exposure Controls were utilized during the CT exam to meet ALARA standards for radiation dose reduction. INDICATION: Fall down 13 stairs. Scalp contusion. Neck pain. COMPARISON: 08/20/2018. FINDINGS: CT HEAD: No large acute territorial ischemia, mass, or hemorrhage. No midline shift or mass effect. The ventricles, cortical sulci, and basilar cisterns are patent and unremarkable. The calvarium is intact. Retained secretions are seen in the bilateral maxillary sinuses, right greater than left, with mucosal thickening in the bilateral ethmoid sinuses. The mastoid air cells are well pneumatized. CT CERVICAL SPINE: No acute fracture or dislocation is seen in the cervical spine. No focal osseous lesions. Stable chronic compression deformities are visualized at the C7 and T2 levels. The craniocervical junction is well-maintained. Mild degenerative changes are seen in the cervical spine with disc osteophyte complexes and uncovertebral arthropathy. Soft tissues of the neck are unremarkable. Scarring and architectural distortion are again noted in the lung apices, right greater than left. Centrilobular emphysema is present. IMPRESSION: 1. No hemorrhage or focal intra-axial mass. No CT evidence of large acute territorial ischemia. 2. No acute fracture or dislocation in the cervical spine. 3. Paranasal sinus disease, greatest in the right maxillary sinus. 4. Centrilobular emphysema in the lung apices with scarring and architectural distortion present, greatest on the right. 5. Old compression deformities at the C7 and T2 levels. These are stable compared to the prior exam. Dictated on workstation # [id number] Dict: 07/21/19 1515 Trans: 07/21/19 1522 [id number] Interpreted by: KALYANI WOO DO Electronically signed by: Teodora Imaging: CT Plain Films/CT/US/NM/MRI: chest, abdomen, pelvis Comments NAME: KACI HILTON [facility] REC#: [id number] PT STATUS: REG ER : 1960 PHYSICIAN: TRUDY STERLING MD ADMIT DATE: 07/21/19/ER Draft Date of Exam:07/21/19 CT CHEST/ABDOMEN/PELVIS W PROCEDURE: CT chest, abdomen, and pelvis with contrast. TECHNIQUE: Multiple contiguous axial images were obtained through the chest, abdomen, and pelvis after the administration of intravenous contrast. Auto Exposure Controls were utilized during the CT exam to meet ALARA standards for radiation dose reduction. INDICATION: Trauma, fell down stairs. COMPARISON: Comparison is made with prior CT chest from 08/05/[address] abdomen and pelvis from 10/16/2018. FINDINGS: CT CHEST: No definite mediastinal hematoma or great vessel injury is identified. No pericardial or pleural fluid is detected. No pulmonary contusion or pneumothorax is detected. Centrilobular emphysematous changes are again noted. Apical scarring in right upper lobe is seen. Imaging of the bony elements does show old left-sided rib fractures. There appears to be a burst fracture at the L1 level with retropulsion of fracture fragments of approximately 5 mm. There is moderate loss of stature of the vertebral body by approximately 40%. Remaining thoracic and lumbar vertebrae appear to be normal in stature. There is a [id number] amount of paraspinous hematoma present as well. CT ABDOMEN AND PELVIS: No focal liver or splenic laceration is identified. No perihepatic or perisplenic fluid is seen. Gallbladder is unremarkable. Pancreas does show some prominence to the pancreatic duct. No adrenal or renal injury is seen. There is a small nonobstructing calculus in the lower pole of the left kidney. There is no hydronephrosis. Aorta is unremarkable. Small and large bowel loops are normal in caliber. There is no free fluid or evidence of hemoperitoneum. Bladder and prostate are unremarkable. Bony pelvis is unremarkable. IMPRESSION: 1. L1 burst fracture involving two columns with mild retropulsion of fracture fragments of approximately 5 mm into the bony canal. Posterior elements appear to be intact. There is moderate paraspinous hematoma present. No other osseous abnormalities are seen. 2. No evidence of abdominal or pelvic visceral injury. 3. Unremarkable CT of the chest. Results were discussed with Dr. Sterling of the emergency department prior to this dictation. Dictated on workstation # [id number] Dict: 07/21/19 1522 Trans: 07/21/19 1542 [id number] Interpreted by: DAYAN JOHNSON MD Electronically signed by: Reviewed: Reviewed by Me Departure Impression Primary Impression: Burst fracture of lumbar vertebra Qualified Codes: S32.001A - Stable burst fracture of unspecified lumbar vertebra, initial encounter for closed fracture Additional Impressions: Saddle anesthesia Alcoholism /alcohol abuse COPD (chronic obstructive pulmonary disease) Qualified Codes: J44.9 - Chronic obstructive pulmonary disease, unspecified Disposition: 02 XFER [facility] Condition: Stable Transfer Transfer Reason: Exceeds level of care Time Spoke to Accepting Phy: 16:33 Transfer Facility: [place], [place], Dr. Doran accepting Method of Transfer: EMS Departure-Patient Inst. Referrals: [facility] (PCP/Family) Primary Care Physician TRUDY STERLING MD Jul 21, 2019 15:30
--- NOTE | 2019-07-21 15:43 | Diagnostic Imaging Report ---
PROCEDURE: CT chest, abdomen, and pelvis with contrast. TECHNIQUE: Multiple contiguous axial images were obtained through the chest, abdomen, and pelvis after the administration of intravenous contrast. Auto Exposure Controls were utilized during the CT exam to meet ALARA standards for radiation dose reduction. INDICATION: Trauma, fell down stairs. COMPARISON: Comparison is made with prior CT chest from 08/05/[address] abdomen and pelvis from 10/16/2018. FINDINGS: CT CHEST: No definite mediastinal hematoma or great vessel injury is identified. No pericardial or pleural fluid is detected. No pulmonary contusion or pneumothorax is detected. Centrilobular emphysematous changes are again noted. Apical scarring in right upper lobe is seen. Imaging of the bony elements does show old left-sided rib fractures. There appears to be a burst fracture at the L1 level with retropulsion of fracture fragments of approximately 5 mm. There is moderate loss of stature of the vertebral body by approximately 40%. Remaining thoracic and lumbar vertebrae appear to be normal in stature. There is a [id number] amount of paraspinous hematoma present as well. CT ABDOMEN AND PELVIS: No focal liver or splenic laceration is identified. No perihepatic or perisplenic fluid is seen. Gallbladder is unremarkable. Pancreas does show some prominence to the pancreatic duct. No adrenal or renal injury is seen. There is a small nonobstructing calculus in the lower pole of the left kidney. There is no hydronephrosis. Aorta is unremarkable. Small and large bowel loops are normal in caliber. There is no free fluid or evidence of hemoperitoneum. Bladder and prostate are unremarkable. Bony pelvis is unremarkable. IMPRESSION: 1. L1 burst fracture involving two columns with mild retropulsion of fracture fragments of approximately 5 mm into the bony canal. Posterior elements appear to be intact. There is moderate paraspinous hematoma present. No other osseous abnormalities are seen. 2. No evidence of abdominal or pelvic visceral injury. 3. Unremarkable CT of the chest. Results were discussed with Dr. Mcdaniel of the emergency department prior to this dictation. Dictated by: Dictated on workstation # [id number]
[2019-07-21 17:03] LABS: BILIRUBIN,URINE NEGATIVE (NEGATIVE); CLARITY,URINE CLEAR; COLOR,URINE YELLOW; GLUCOSE, URINE (UA) NEGATIVE (NEGATIVE); KETONES,URINE NEGATIVE (NEGATIVE); LEUKOCYTE ESTERASE ,URINE NEGATIVE (NEGATIVE); NITRITE,URINE NEGATIVE (NEGATIVE); PROTEIN,URINE 2+ (NEGATIVE)
[2019-07-21 17:07] LABS: INR 0.9 (0.8-1.4); PROTHROMBIN TIME PATIENT 12.2 SEC (12.2-14.7)
[2019-07-21 17:11] LABS: WBC,URINE 0-2 /HPF
[2019-07-21 17:12] LABS: AMORPHOUS SEDIMENT,UR MOD AMOR URATES /LPF; BACTERIA,URINE TRACE /HPF; RBC,URINE 0-2 /HPF
[2019-07-21 17:30] VITALS: BP 111/78
== END 2019-07-21 17:15 | disposition short-term general hospital (02) ==
LOC: EDUNIT# 14:22 → ER 14:23
DX: S32.011A Stable burst fracture of first lumbar vertebra, initial encounter for closed fracture (principal); F10.20 Alcohol dependence, uncomplicated; J43.9 Emphysema, unspecified; F17.210 Nicotine dependence, cigarettes, uncomplicated; Z86.010 Personal history of colon polyps; Z99.81 Dependence on supplemental oxygen; Z82.49 Family history of ischemic heart disease and other diseases of the circulatory system; Z80.0 Family history of malignant neoplasm of digestive organs; Y90.8 Blood alcohol level of 240 mg/100 ml or more; W10.9XXA Fall (on) (from) unspecified stairs and steps, initial encounter
CPT/HCPCS: 36415; 70450; 71045; 71260; 72125; 72170; 74177; 80053; 80320; 81000; 85025; 85610; 85730

== ENCOUNTER 2019-08-08 04:33 | Emergency (ER) | payer OTHER ==
[2019-08-08] VITALS (7 sets, daily range): BP systolic 97–126; BP diastolic 55–86
[~2019-08-08] VITALS: Ht 177 cm; Wt 48.6 kg
[2019-08-08] MEDS ORDERED: NS IV 1000 ML 1,000 ML IV SCH (04:41)
[2019-08-08] MEDS ORDERED: PIPERACILLIN SODIUM/TAZOBACTAM 4.5 GM in NS (IVPB) 100 ML IV ONE (04:45)
[2019-08-08] MEDS ORDERED: RT-ALBUTEROL/IPRATROPIUM 3 ML (DUONEB) VIAL INH ONE (04:45)
[2019-08-08] MEDS ORDERED: VANCOMYCIN INJECTION 1,000 MG in NS (IVPB) 250 ML IV ONE (04:45)
[2019-08-08] MEDS ORDERED: fentaNYL INJECTION 100 MCG/2 ML AMP IVP ONE (04:45)
[2019-08-08 05:03] LABS: BASOPHILS % (AUTO) 0 % (0-10); EOSINOPHILS % (AUTO) 0 % (0-10); HEMATOCRIT 37 % (40-54); HEMOGLOBIN 11.8 G/DL (13.3-17.7); LYMPHOCYTES # (AUTO) 0.9 X 10^3 (1.0-4.0); LYMPHOCYTES % (AUTO) 7 % (12-44); MEAN CORPUSCULAR HEMOGLOBIN 30 PG (25-34); MEAN CORPUSCULAR HGB CONC 32 G/DL (32-36); MEAN CORPUSCULAR VOLUME 94 FL (80-99); MONOCYTES # (AUTO) 1.1 X 10^3 (0.0-1.0); MONOCYTES % (AUTO) 9 % (0-12); NEUTROPHILS # (AUTO) 9.9 X 10^3 (1.8-7.8); NEUTROPHILS % (AUTO) 83 % (42-75); PLATELET COUNT 674 10^3/uL (130-400); RED CELL DISTRIBUTION WIDTH 23.9 % (10.0-14.5); WHITE BLOOD COUNT 11.8 10^3/uL (4.3-11.0)
[2019-08-08 05:23] LABS: ALANINE AMINOTRANSFERASE 14 U/L (0-55); ALBUMIN 3.9 GM/DL (3.2-4.5); ALKALINE PHOSPHATASE 203 U/L (40-136); BILIRUBIN,TOTAL 0.5 MG/DL (0.1-1.0); BUN/CREATININE RATIO 16; CALCIUM 8.4 MG/DL (8.5-10.1); CARBON DIOXIDE 21 MMOL/L (21-32); CHLORIDE 102 MMOL/L (98-107); CREATININE SERUM 0.69 MG/DL (0.60-1.30); GFR ESTIMATED > 60; GLUCOSE 182 MG/DL (70-105); POTASSIUM 3.7 MMOL/L (3.6-5.0); SODIUM 141 MMOL/L (135-145); TOTAL PROTEIN 7.2 GM/DL (6.4-8.2)
--- NOTE | 2019-08-08 05:40 | Diagnostic Imaging Report ---
Indication: Back pain Portable chest 5:23 AM There are emphysematous changes in the lungs. Heart size and pulmonary vascularity are normal. There are no infiltrates, effusions or pneumothoraces. IMPRESSION: COPD. No acute abnormalities seen. Dictated by: Dictated on workstation # [id number]
[2019-08-08] MEDS ORDERED: diphenhydrAMINE 50 MG/ML INJ (BENADRYL) ONE (06:26)
--- NOTE | 2019-08-08 06:26 | ED Back Pain ---
General Chief Complaint: Back Problems Stated Complaint: BACK PAIN Nursing Triage Note: Pt to [facility] via [facility] with c/o back pain x 1 wk after back surgery. PT reports taking hydrocodone and tylenol for pain with minimal relief. Pt denies any fever/chills/CP, but does report nausea since yesterday. Nursing Sepsis Screen: No Definite Risk Source of Information: Patient, EMS Exam Limitations: No Limitations (PRATIK JUNIOR) History of Present Illness Date Seen by Provider: Aug 08, 2019 Time Seen by Provider: 04:23 Initial Comments Patient presents ER by EMS from home with chief complaint of back pain going on for the past week since he had a surgery on his back by a surgeon in [place]. He's been using hydrocodone without significant relief pain. He says of a severe 10 out of 10. No fevers chills but he does have some shortness of breath related to COPD. Smokes 2 packs cigarettes per day. No chest pain but he is having some nausea without vomiting. EMS reports there were bugs all over his dwelling. Patient rates the pain in his back and [address] Morgan is the Surgeon at [facility]. (PRATIK JUNIOR) Allergies and Home Medications Allergies Coded Allergies: piperacillin (Verified Allergy, Unknown, hives, 08/08/19) tazobactam (Verified Allergy, Unknown, hives, 08/08/19) Home Medications Acetaminophen 500 Mg Tablet, 1,000 MG PO Q6H PRN for PAIN-MILD, (Reported) Albuterol Sulfate 6.7 Gm Hfa.aer.ad, 2 PUFF INH Q4H PRN for SHORTNESS OF BREATH, (Reported) Ciprofloxacin HCl 500 Mg Tablet, 500 MG PO BID Prescribed by: NITIN ELLINGTON on 10/19/18927 Ciprofloxacin HCl 500 Mg Tablet, 500 MG PO BID BLOCK ENGRAVER SUNDAY AT [facility] Prescribed by: NITIN LELINGTON on 10/19/18 123 Folic Acid 1 Mg Tablet, 1 MG PO DAILY@0700 Prescribed by: NITIN ELLINGTON on 10/03/18 1039 Metronidazole 500 Mg Tablet, 500 MG PO TID Prescribed by: NITIN ELLINGTON on 10/19/18927 Metronidazole 500 Mg Tablet, 500 MG PO TID BLOCK ENGRAVER AT [facility] ON SUNDAY Prescribed by: NITIN ELLINGTON on 10/19/18 1233 Multivitamin 1 Each Tablet, 1 TAB PO DAILY, (Reported) Tiotropium [place] 4 Gm Mist.inhal, 2 PUFF IH DAILY Prescribed by: RAFFY ELIZONDO on 08/08/18 1237 Patient Home Medication List Home Medication List Reviewed: Yes (PRATIK JUNIOR) Home Medication List Reviewed: Yes (JUAN ANTONIO EPSTEIN DO) Review of Systems Constitutional: No chills, No fever; malaise, weakness EENTM: No hearing loss, No ear pain Respiratory: cough; No phlegm; short of breath, wheezing Cardiovascular: No chest pain, No edema, No Hx of Intervention, No palpitations Gastrointestinal: No abdominal pain, No constipation, No diarrhea, No nausea Genitourinary: No discharge, No dysuria Musculoskeletal: see HPI, back pain; No joint pain Skin: No pruritus, No rash Psychiatric/Neurological: Denies Headache, Denies Numbness (PRATIK JUNIOR) All Other Systems Reviewed Negative Unless Noted: Yes (PRATIK JUNIOR) Past Itwtmvx-Vufvsw-Virvfw Hx Patient Social History Alcohol Use: Regular Use Number of Drinks Today: FF Alcohol Beverage of Choice: Vodka Recreational Drug Use: No Smoking Status: Current Everyday Smoker Type Used: Cigarettes 2nd Hand Smoke Exposure: Yes Recent Foreign Travel: No Contact w/Someone Who Travel: No Recent Infectious Disease Expo: No Recent Hopitalizations: No (PRATIK JUNIOR) Immunizations Up To Date Tetanus Booster (TDap): Unknown Date of Pneumonia Vaccine: Sep 07, 2011 Date of Influenza Vaccine: Oct 22, 2016 (PRATIK JUNIOR) Seasonal Allergies Seasonal Allergies: No (PRATIK JUNIOR) Past Medical History Surgeries: Yes Orthopedic Respiratory: Yes COPD, Emphysema Currently Using CPAP: No Currently Using BIPAP: No Cardiac: Yes Hypotension Neurological: No Reproductive Disorders: No Genitourinary: No Gastrointestinal: Yes Polyps Musculoskeletal: Yes Osteoporosis Endocrine: No HEENT: No Loss of Vision: Denies Hearing Impairment: Denies Cancer: No Psychosocial: Yes (alcohol dependence) Anxiety, PTSD, Bipolar, Personality Disorder, Depression Integumentary: No Blood Disorders: No Adverse Reaction/Blood Tranf: No (PRAITK JUNIOR) Family Medical History Asthma 19 MOTHER Cardiovascular disease G8 SISTER (blood clots) Colon cancer 19 MOTHER (polyps/hiatal hernia) Congenital disease 19 MOTHER (nuerogenic syncope) Neoplasm No Pertinent Family Hx, Asthma, Cancer, DVT/PE (PRATIK JUNIOR) Physical Exam Vital Signs Vital Signs - First Documented 08/08/19 04:33 Temp 37.4 Pulse 124 Resp 22 B/P (MAP) 110/72 (85) Pulse Ox 98 O2 Delivery Nasal Cannula O2 Flow Rate 2.00 (JUAN ANTONIO EPSTEIN DO) Vital Signs Capillary Refill : Less Than 3 Seconds (PRATIK JUNIOR) Height, Weight, BMI Height: 5'7.00" Weight: 98lbs. 0.0oz. 44.168366wh; 15.00 BMI Method:Stated General Appearance: Chronically ill, Cachetic, Moderate Distress HEENT: PERRL/EOMI, Pharynx Normal, Moist Mucous Membranes Neck: Full Range of Motion, Normal Inspection, Non Tender Cardiovascular: Regular Rate, Rhythm, No Edema, Normal Peripheral Pulses Respiratory: Chest Non Tender Gastrointestinal: Normal Bowel Sounds, No Organomegaly, Non Tender, Soft Back: Other (partially healing surgical wounds over his thoracic and lumbar spine with 4 cm diameter erythematous, mildly indurated margins around the wounds. No exudate. No fluctuance palpable. Tender to palpation.) Extremity: Normal Capillary Refill, Normal Inspection, No Pedal Edema Neurologic/Psychiatric: Alert, Oriented x3, No Motor/Sensory Deficits Skin: Warm/Dry, Rash (faint red macular nonpruritic rash over his trunk) (PRATIK JUNIOR) Progress/Results/Core Measures Results/Orders Lab Results Laboratory Tests Test 08/08/19 04:44 08/08/19 07:26 08/08/19 07:33 Range/Units White Blood Count 11.8 H 4.3-11.0 10^3/uL Red Blood Count 3.97 L 4.35-5.85 10^6/uL Hemoglobin 11.8 L 13.3-17.7 G/DL Hematocrit 37 L 40-54 % Mean Corpuscular Volume 94 80-99 FL Mean Corpuscular Hemoglobin 30 25-34 PG Mean Corpuscular Hemoglobin Concent 32 32-36 G/DL Red Cell Distribution Width 23.9 H 10.0-14.5 % Platelet Count 674 H 130-400 10^3/uL Mean Platelet Volume 9.0 7.4-10.4 FL Neutrophils (%) (Auto) 83 H 42-75 % Lymphocytes (%) (Auto) 7 L 12-44 % Monocytes (%) (Auto) 9 0-12 % Eosinophils (%) (Auto) 0 0-10 % Basophils (%) (Auto) 0 0-10 % Neutrophils # (Auto) 9.9 H 1.8-7.8 X 10^3 Lymphocytes # (Auto) 0.9 L 1.0-4.0 X 10^3 Monocytes # (Auto) 1.1 H 0.0-1.0 X 10^3 Eosinophils # (Auto) 0.0 0.0-0.3 10^3/uL Basophils # (Auto) 0.0 0.0-0.1 10^3/uL Prothrombin Time 13.0 12.2-14.7 SEC INR Comment 1.0 0.8-1.4 Activated Partial Thromboplast Time 31 24-35 SEC Sodium Level 141 135-145 MMOL/L Potassium Level 3.7 3.6-5.0 MMOL/L Chloride Level 102 98-107 MMOL/L Carbon Dioxide Level 21 21-32 MMOL/L Anion Gap 18 H 5-14 MMOL/L Blood Urea Nitrogen 11 7-18 MG/DL Creatinine 0.69 0.60-1.30 MG/DL Estimat Glomerular Filtration Rate > 60 BUN/Creatinine Ratio 16 Glucose Level 182 H 70-105 MG/DL Lactic Acid Level 2.29 *H 1.61 0.50-2.00 MMOL/L Calcium Level 8.4 L 8.5-10.1 MG/DL Corrected Calcium 8.5 8.5-10.1 MG/DL Total Bilirubin 0.5 0.1-1.0 MG/DL Aspartate Amino Transf (AST/SGOT) 26 5-34 U/L Alanine Aminotransferase (ALT/SGPT) 14 0-55 U/L Alkaline Phosphatase 203 H 40-136 U/L Troponin I < 0.028 <0.028 NG/ML Total Protein 7.2 6.4-8.2 GM/DL Albumin 3.9 3.2-4.5 GM/DL Procalcitonin 0.20 H <0.10 NG/ML Urine Color YELLOW Urine Clarity CLEAR Urine pH 5.5 5-9 Urine Specific [place] >=1.030 1.016-1.022 Urine Protein 2+ H NEGATIVE Urine Glucose (UA) NEGATIVE NEGATIVE Urine Ketones NEGATIVE NEGATIVE Urine Nitrite NEGATIVE NEGATIVE Urine Bilirubin NEGATIVE NEGATIVE Urine Urobilinogen 1.0 < = 1.0 MG/DL Urine Leukocyte Esterase NEGATIVE NEGATIVE Urine RBC (Auto) NEGATIVE NEGATIVE Urine RBC NONE /HPF Urine WBC RARE /HPF Urine Crystals PRESENT H /LPF Urine Calcium Oxalate Crystals RARE H /LPF Urine Amorphous Sediment FEW HEVER URATES H /LPF Urine Bacteria MODERATE H /HPF Urine Casts NONE /LPF Urine Mucus SMALL H /LPF Urine Culture Indicated CULTURE PENDING Urine Opiates Screen POSITIVE H NEGATIVE Urine Oxycodone Screen NEGATIVE NEGATIVE Urine Methadone Screen NEGATIVE NEGATIVE Urine Propoxyphene Screen NEGATIVE NEGATIVE Urine Barbiturates Screen NEGATIVE NEGATIVE Ur Tricyclic Antidepressants Screen NEGATIVE NEGATIVE Urine Phencyclidine Screen NEGATIVE NEGATIVE Urine Amphetamines Screen NEGATIVE NEGATIVE Urine Methamphetamines Screen NEGATIVE NEGATIVE Urine Benzodiazepines Screen NEGATIVE NEGATIVE Urine Cocaine Screen POSITIVE H NEGATIVE Urine Cannabinoids Screen NEGATIVE NEGATIVE (JUAN ANTONIO EPSTEIN DO) Micro Results Microbiology 08/08/19 Urine Culture - Final, Complete NO GROWTH 08/08/19 Blood Culture - Preliminary, Resulted No growth 08/08/19 Blood Culture - Preliminary, Resulted No growth (JUAN ANTONIO EPSTEIN DO) My Orders Orders - JUAN ANTONIO EPSTEIN DO Acetaminophen Tablet (Tylenol Tablet) (08/08/19 08:04) Ed Iv/Invasive Line Start (08/08/19 08:04) Lactated Ringers (Lr 1000 Ml Iv Solution (08/08/19 08:04) Procalcitonin (Pct) (08/08/19 08:18) Ed Iv/Invasive Line Start (08/08/19 10:38) Lactated Ringers (Lr 1000 Ml Iv Solution (08/08/19 10:38) Vancomycin Injection (Vancomycin Injecti (08/08/19 19:00) General/Regular (08/08/19 Lunch) Cefepime Injection (Maxipime Injection) (08/08/19 14:15) Fentanyl Injection (Sublimaze Injection (08/08/19 15:03) (JUAN ANTONIO EPSTEIN DO) Medications Given in ED (JUAN ANTONIO EPSTEIN DO) Vital Signs/I&O 08/08/19 08/08/19 08/08/19 08/08/19 04:33 04:40 08:29 10:08 Temp 37.4 37.3 Pulse 124 111 106 Resp 22 18 18 B/P (MAP) 110/72 (85) 121/86 (98) 97/55 (69) Pulse Ox 98 97 96 94 O2 Delivery Nasal Cannula Nasal Cannula Nasal Cannula O2 Flow Rate 2.00 2.00 08/08/19 08/08/19 08/08/19 08/08/19 11:09 12:05 13:02 14:02 Temp 37.1 Pulse 95 98 100 90 Resp 18 18 18 18 B/P (MAP) 98/57 (71) 109/66 (80) 126/76 (93) Pulse Ox 98 98 98 100 O2 Delivery Room Air Room Air Nasal Cannula Nasal Cannula O2 Flow Rate 2.00 3.00 08/08/19 08/08/19 15:17 16:20 Pulse 95 90 Resp 18 18 B/P (MAP) 121/81 (94) 100/61 Pulse Ox 100 100 O2 Delivery Nasal Cannula Nasal Cannula O2 Flow Rate 3.00 3.00 (JUAN ANTONIO EPSTEIN DO) Blood Pressure Mean: 85 Progress Progress Note #1: Time: 06:30 Progress Note Shortly after starting the patient on Zosyn he started getting itchy scan and d eveloping hives over his trunk. We stopped Zosyn and will use cefepime instead. Benadryl 25 mg IV ordered. Patient's having no worsening airway he has no stridor. He has no wheezing but he has diminished breath sounds. He did receive his DuoNeb which he said helped somewhat. Is erythema around his surgical wounds possible cellulitis versus wound infection. No exudate. Plan to get imaging of the spine. Septic workup as he is tachycardic. He tells me tachycardic due to his COPD. We'll get a drug screen. 50 g of fentanyl kept his pain significantly down to 5 out of 10. Progress Note #2: Time: 06:46 Progress Note Patient's pruritus is gone and his hives are improving. Progress Note #3: Time: 07:20 Progress Note Still looking for sources of infection, CT is pending as well as urinalysis. We have passed the case off to Dr. Epstein and she will likely disposition probably back to [facility]. (PRATIK JUNIOR) Progress Note : Progress Note PT SLEPT SOUNDLY THROUGH MOST OF ER STAY 0800--O2 SATS 91% ON 3L/NC--UP TO 94% ON 4L/NC-WHILE ASLEEP GIVEN ADDITIONAL IV FLUIDS AND TYLENOL, TEMP IS UP TO 100 DRUG SCREEN POSITIVE FOR COCAINE, WHICH IS CONTRIBUTING CAUSE FOR TACHYCARDIA- RATE 120'S HEART RATE AND BLOOD PRESSURE NORMALIZED WITHOUT TREATMENT MARKED DELAY IN TRANSFER DUE TO NO BED ASSIGNMENT BY [facility] (JUAN ANTONIO EPSTEIN DO) Initial ECG Impression Date: Aug 08, 2019 Initial ECG Impression Time: 04:38 Initial ECG Rate: 123 Initial ECG Rhythm: S.Tach Initial ECG Intervals: Normal Initial ECG Impression: Normal, Nonspecific Changes Comment Sinus tachycardia without clinically relevant ST elevation or depression. (PRATIK JUNIOR) Diagnostic Imaging Diagonstic Imaging: Xray Plain Films/CT/US/NM/MRI: chest Comments [facility] [place] NAME: KACI [facility] REC#: [id number] PT STATUS: REG ER : 1960 PHYSICIAN: PRATIK JUNIOR MD ADMIT DATE: 08/08/19/ER Signed Date of Exam:08/08/19 CHEST 1 VIEW, AP/PA ONLY Indication: Back pain Portable chest 5:23 AM There are emphysematous changes in the lungs. Heart size and pulmonary vascularity are normal. There are no infiltrates, effusions or pneumothoraces. IMPRESSION: COPD. No acute abnormalities seen. Dictated by: Dictated on workstation # [id number] Dict: 08/08/19 0538 Trans: 08/08/19 0539 TB [id number] Interpreted by: TRUDY COLON MD Electronically signed by: TRUDY COLON MD 08/08/19 0539 Reviewed: Reviewed by Me (PRATIK JUNIOR) Comments CT CERVICAL/THORACIC/LUMBAR SPINE--PER [facility] VIA FAX AT 3352 C-SPINE--NO ACUTE PROCESS, CHRONIC CHANGES/STABLE T-SPINE-NO ACUTE PROCESS, CHRONIC CHANGES/STABLE L-SPINE--SPINAL FUSION AROUND L1 COMPRESSION FX, WITHOUT POST OP COMPLICATION, AND NORMAL SOFT TISSUES Reviewed: Reviewed by Me (JUAN ANTONIO EPSTEIN DO) Transfer of Care Time: 07:20 Care transferred to: Dr. Epstein (PRATIK JUNIOR) Departure Communication (Admissions) 0757--CALLED [facility]. WILL CALL THEM BACK AFTER 0800 0814--CALLED [facility]. WILL PAGE DR. MORGAN AND CALL BACK. 0904--CALLED [facility] AGAIN. DR. MORGAN HAS NOT ANSWERED HIS PAGE, NEITHER HAS DR. TRUONG, NEUROSURGEON . NOW PAGING INTERNAL MEDICINE. WILL CALL BACK 09--[facility] HAS CALLED BACK, DR. AJ FREEDMAN HAS ACCEPTED PT FOR ADMIT. NO ADDITIONAL RECOMMENDATIONS 1039--CONTACTED [facility] FOR BED ASSIGNMENT. THEY STATE THAT THEY ARE WAITING FOR PATIENTS TO BE DISCHARGED, BEFORE ASSIGNING ROOM. THEY WILL CALL US BACK WITH BED ASSIGNMENT. NURSING STAFF HAS CALLED MULTIPLE TIMES REGARDING BED ASSIGNMENT 1338--CALLED [facility], REGARDING BED ASSIGNMENT, STILL WAITING FOR BED ASSIGNMENT, STILL WAITING ON DISMISSALS, BUT ASSURED ME THEY WOULD HAVE A BED TODAY. 1540--CALLED [facility] REGARDING BED ASSIGNMENT. STILL WAITING FOR BED ASSIGNMENT, STILL WAITING ON DISMISSALS. THEY HAVE AGAIN ASSURED ME THAT PT WILL HAVE A BED TODAY. 1541--[facility] CALLED BACK. PT HAS BEEN GIVEN A BED. RN CALLING REPORT AND EMS BEING CONTACTED. (JUAN ANTONIO EPSTEIN DO) Impression Primary Impression: Postoperative wound infection Additional Impressions: COPD exacerbation Cocaine use Sepsis S/P spinal surgery Disposition: 02 XFER SHT-TRM HOSP Condition: Stable Transfer Transfer Reason: Exceeds level of care Transfer Facility: Method of Transfer: EMS (JUAN ANTONIO EPSTEIN DO) Departure-Patient Inst. Referrals: [facility] (PCP/Family) Primary Care Physician PRATIK JUNIOR Aug 08, 2019 06:26 JUAN ANTONIO EPSTEIN DO Aug 08, 2019 07:58
[2019-08-08] MEDS ORDERED: diphenhydrAMINE 50 MG/ML INJ (BENADRYL) IVP ONE (06:30)
[2019-08-08] MEDS ORDERED: CEFEPIME INJECTION 1,000 MG in WATER (STERILE) FOR INJECTION 10 ML IV ONE ×2 (06:30→14:15)
[2019-08-08 07:45] LABS: BILIRUBIN,URINE NEGATIVE (NEGATIVE); CLARITY,URINE CLEAR; COLOR,URINE YELLOW; GLUCOSE, URINE (UA) NEGATIVE (NEGATIVE); KETONES,URINE NEGATIVE (NEGATIVE); LEUKOCYTE ESTERASE ,URINE NEGATIVE (NEGATIVE); NITRITE,URINE NEGATIVE (NEGATIVE); PH,URINE 5.5 (5-9); PROTEIN,URINE 2+ (NEGATIVE)
[2019-08-08 07:54] LABS: AMORPHOUS SEDIMENT,UR FEW AMOR URATES /LPF; BACTERIA,URINE MODERATE /HPF; CALCIUM OXALATE CRYSTALS,UR RARE /LPF; WBC,URINE RARE /HPF
[2019-08-08 08:02] LABS: AMPHETAMINE SCREEN, URINE NEGATIVE (NEGATIVE); BARBITURATE SCREEN URINE NEGATIVE (NEGATIVE); BENZODIAZEPINES SCREEN URINE NEGATIVE (NEGATIVE); CANNABINOID SCREEN, URINE NEGATIVE (NEGATIVE); COCAINE SCREEN URINE POSITIVE (NEGATIVE); METHADONE STAT NEGATIVE (NEGATIVE); METHAMPHETAMINE SCREEN URINE S NEGATIVE (NEGATIVE); OPIATE SCREEN URINE POSITIVE (NEGATIVE); OXYCODONE STAT NEGATIVE (NEGATIVE); PROPOXYPHENE STAT NEGATIVE (NEGATIVE); TRICYCLIC ANTIDEPRESSANTS SCRE NEGATIVE (NEGATIVE)
[2019-08-08] MEDS ORDERED: ACETAMINOPHEN 500 MG TAB (TYLENOL) PO STA (08:04)
[2019-08-08] MEDS ORDERED: LACTATED RINGERS 1,000 ML IV ONE ×2 (08:04→10:38)
--- NOTE | 2019-08-08 08:12 | NUR ---
DR JOEL CALLED [facility] ABOUT TRANSFER.
--- NOTE | 2019-08-08 08:31 | NUR ---
EMS SHIFT CAPTAIN CALLED AND INFORMED OF TRANSFER WAITNG FOR [facility] TO CALL BACK.
--- NOTE | 2019-08-08 08:34 | NUR ---
Waldo keenan in [facility] - 08/08/19 at 0840 by PMCCLURE FOOD SUMEET GIVEN
--- NOTE | 2019-08-08 09:02 | NUR ---
CON'T TO WAIT FOR [facility] TO CALL BACK.
--- NOTE | 2019-08-08 09:17 | NUR ---
TO ROOM FLUIDS INFUSING EYES CLOSED MONITOR ST WITH RATE OF HR 115
--- NOTE | 2019-08-08 09:58 | NUR ---
WAITING FOR [facility] TO CALL BACK WITH ROOM #
--- NOTE | 2019-08-08 10:39 | NUR ---
Phone call placed to [facility]. No current bed assignment at this time. One call will call us back when bed assignment becomes available. One call stated it could be awhile before this happens. Dr Epstein updated.
--- NOTE | 2019-08-08 11:42 | NUR ---
TO ROOM FLUIDS INFUSING PATIENT RESTING MONITOR SR.
--- NOTE | 2019-08-08 11:53 | Diagnostic Imaging Report ---
INDICATION: "Pain and redness after surgery". CT cervical spine: Exam compared to 07/21/2019. Mildly retropulsed fracture of the C7 vertebral body showed no progressive stature loss or change in the interim. The remaining cervical statures are maintained and their alignment anatomic. The facet relationships showed some chronic degenerative change but no acute finding. No findings to suggest interval surgical instrumentation in the cervical spine. No fluid collection is revealed. Thoracic spine: The thoracic and lumbar imaging correlated with CT chest, abdomen and pelvis performed 07/21/2019. Mild wedging T2-T5 stable from previous exams. No acute appearing endplate irregularity or paravertebral hemorrhage. Since the previous exam the patient's L1 vertebral body 2 column burst fracture showed no progressive stature loss, 5 mm retropulsion of the posterior endplate superiorly encroaches upon the spinal canal with a moderate degree of stenosis. Paravertebral edema and hemorrhage showed no progression. Vertical rods and bi pedicular screws extend 2 levels above through 2 levels below treating this injury. Hardware positioning appears good. I cannot identify a paravertebral fluid collection. No suspicious opaque foreign body. No appreciable soft tissue gas. Remaining lumbar levels are stable with an old L5 Schmorl's node chronic. Neural arches appeared intact. IMPRESSION: Stable upper thoracic wedge deformities chronic. Treatment of the L1 burst fracture with a posterior rods and pedicular screws in good position with no progressive stature loss nor increased retropulsion of this treated fracture. No identifiable fluid collection no adverse interval development. Not mentioned above there is some vaibhav-fissural partial atelectasis of the patient's left lower lobe as well as some air space and groundglass opacity. While an element of atelectasis is clearly present superimposition of left lower lobe pneumonia could not be excluded by CT in the appropriate clinical scenario. Dictated by: Dictated on workstation # [id number]
--- NOTE | 2019-08-08 12:06 | NUR ---
CON'T TO WAIT FOR ROOM FROM [facility]
--- NOTE | 2019-08-08 12:17 | NUR ---
CALLED TO CHECK ON BED STATUS STILL NO BED AVIABLE STAFF AT REPORT IT MAY BE 2 HOURS OR MORE
--- NOTE | 2019-08-08 12:33 | NUR ---
PATIENT INFORMED THAT [facility] STILL DOES NOT HAVE A BED COULD BE APX 2 HRS
--- NOTE | 2019-08-08 12:56 | NUR ---
UP TO C FOOD TRAY ORDERED.
--- NOTE | 2019-08-08 13:22 | NUR ---
FOOD TRAY GIVEN.
--- NOTE | 2019-08-08 13:39 | NUR ---
DR JOEL CALLED [facility] CON'T TO WAIT ON BED THEY TOLD DR JOEL THAT HE WILL HAVE BED.
--- NOTE | 2019-08-08 13:51 | NUR ---
TO ROOM 2ND LR INFUSED PATIENT INFORMED STILL WIATING ON BED FROM [facility]
--- NOTE | 2019-08-08 14:58 | NUR ---
MORE PAIN MEDS REQUESTED DR JOEL NOTIFIED.
[2019-08-08] MEDS ORDERED: fentaNYL INJECTION 100 MCG/2 ML AMP IVP STA (15:03)
--- NOTE | 2019-08-08 15:42 | NUR ---
RITA RECEIVED AT .
--- NOTE | 2019-08-08 15:45 | NUR ---
EMS CALLED FOR TRANSFER.
--- NOTE | 2019-08-08 15:50 | NUR ---
REPORT TO [facility]
--- NOTE | 2019-08-08 16:20 | NUR ---
EMS HERE FOR TRANSFER TO TRANSFER.
[2019-08-08] MEDS ORDERED: VANCOMYCIN 750 MG/NS 250 ML IVPB IV NR ×2 (19:00)
== END 2019-08-08 16:20 | disposition short-term general hospital (02) ==
LOC: EDUNIT# 04:33 → ER 04:33
DX: T81.49XA Infection following a procedure, other surgical site, initial encounter (principal); T81.44XA Sepsis following a procedure, initial encounter; A41.9 Sepsis, unspecified organism; J44.1 Chronic obstructive pulmonary disease with (acute) exacerbation; F14.90 Cocaine use, unspecified, uncomplicated; F17.210 Nicotine dependence, cigarettes, uncomplicated; Z88.1 Allergy status to other antibiotic agents; Z88.8 Allergy status to other drugs, medicaments and biological substances; Z82.49 Family history of ischemic heart disease and other diseases of the circulatory system; Z80.0 Family history of malignant neoplasm of digestive organs
CPT/HCPCS: 36415; 71045; 72125; 72128; 72131; 80053; 80306; 81000; 83605; 84145; 84484; 85025; 85610; 85730; 87040; 87088

== ENCOUNTER 2019-10-13 05:46 | Outpatient (RCR) | payer MEDICAID | END 2020-01-11 | disposition home or self-care (01) | LOC: PREOP 05:46 → EDSTATUS 10:15 | PROVIDERS: ATTEND Surgery | DX: Z01.818 Encounter for other preprocedural examination (principal) ==

== ENCOUNTER → 2019-12-30 | Outpatient (CLI) | payer MEDICAID ==
[2019-12-30 13:29] LABS: BUN/CREATININE RATIO 16; CALCIUM 9.2 MG/DL (8.5-10.1); CARBON DIOXIDE 20 MMOL/L (21-32); CHLORIDE 102 MMOL/L (98-107); CREATININE SERUM 0.79 MG/DL (0.60-1.30); GFR ESTIMATED > 60; GLUCOSE 83 MG/DL (70-105); POTASSIUM 4.4 MMOL/L (3.6-5.0); SODIUM 137 MMOL/L (135-145)
== END ==
LOC: LAB 12:48
PROVIDERS: ATTEND Internal Medicine Infectious Disease
DX: L02.91 Cutaneous abscess, unspecified (principal)
CPT/HCPCS: 36415; 80048

== ENCOUNTER → 2020-03-11 | Outpatient (CLI) | payer MEDICAID ==
[~2020-03-11] MED LIST changes: -FOLI1TAB24 PO; +FOLI1TAB33 PO
[2020-03-11 15:06] LABS: BASOPHILS # (AUTO) 0.1 10^3/uL (0.0-0.1); BASOPHILS % (AUTO) 1 % (0-10); EOSINOPHILS # (AUTO) 0.2 10^3/uL (0.0-0.3); EOSINOPHILS % (AUTO) 4 % (0-10); HEMATOCRIT 53 % (40-54); HEMOGLOBIN 17.3 g/dL (13.3-17.7); LYMPHOCYTES # (AUTO) 1.7 10^3/uL (1.0-4.0); LYMPHOCYTES % (AUTO) 37 % (12-44); MEAN CORPUSCULAR HEMOGLOBIN 30 pg (25-34); MEAN CORPUSCULAR HGB CONC 33 g/dL (32-36); MEAN CORPUSCULAR VOLUME 93 fL (80-99); MEAN PLATELET VOLUME 8.7 fL (9.0-12.2); MONOCYTES # (AUTO) 0.6 10^3/uL (0.0-1.0); MONOCYTES % (AUTO) 12 % (0-12); NEUTROPHILS # (AUTO) 2.1 10^3/uL (1.8-7.8); NEUTROPHILS % (AUTO) 46 % (42-75); PLATELET COUNT 201 10^3/uL (130-400); WHITE BLOOD COUNT 4.7 10^3/uL (4.3-11.0)
[2020-03-11 15:17] LABS: ALANINE AMINOTRANSFERASE 23 U/L (0-55); ALBUMIN 4.7 GM/DL (3.2-4.5); ALKALINE PHOSPHATASE 79 U/L (40-136); BILIRUBIN,TOTAL 0.6 MG/DL (0.1-1.0); BUN/CREATININE RATIO 10; CALCIUM 9.7 MG/DL (8.5-10.1); CARBON DIOXIDE 21 MMOL/L (21-32); CHLORIDE 103 MMOL/L (98-107); CREATININE SERUM 0.93 MG/DL (0.60-1.30); GFR ESTIMATED > 60; GLUCOSE 77 MG/DL (70-105); POTASSIUM 4.8 MMOL/L (3.6-5.0); SODIUM 137 MMOL/L (135-145); TOTAL PROTEIN 7.5 GM/DL (6.4-8.2)
== END ==
LOC: LAB 14:21
PROVIDERS: ATTEND Internal Medicine Infectious Disease
DX: L02.91 Cutaneous abscess, unspecified (principal); A49.02 Methicillin resistant Staphylococcus aureus infection, unspecified site
CPT/HCPCS: 36415; 80053; 85025

== ENCOUNTER → 2020-06-11 | Outpatient (CLI) | payer MEDICAID ==
[~2020-06-11] MED LIST changes: -CIPR500T4 PO; +CIPR500T5 PO; -OXYC-471 PO; +OXYC1TAB11 PO
[2020-06-11 13:21] LABS: BASOPHILS # (AUTO) 0.1 10^3/uL (0.0-0.1); BASOPHILS % (AUTO) 1 % (0-10); EOSINOPHILS # (AUTO) 0.2 10^3/uL (0.0-0.3); EOSINOPHILS % (AUTO) 3 % (0-10); HEMATOCRIT 49 % (40-54); LYMPHOCYTES # (AUTO) 1.6 10^3/uL (1.0-4.0); LYMPHOCYTES % (AUTO) 27 % (12-44); MEAN CORPUSCULAR HEMOGLOBIN 36 pg (25-34); MEAN CORPUSCULAR HGB CONC 35 g/dL (32-36); MEAN CORPUSCULAR VOLUME 106 fL (80-99); MEAN PLATELET VOLUME 8.8 fL (9.0-12.2); MONOCYTES # (AUTO) 0.7 10^3/uL (0.0-1.0); MONOCYTES % (AUTO) 12 % (0-12); NEUTROPHILS # (AUTO) 3.3 10^3/uL (1.8-7.8); NEUTROPHILS % (AUTO) 56 % (42-75); PLATELET COUNT 208 10^3/uL (130-400); WHITE BLOOD COUNT 5.8 10^3/uL (4.3-11.0)
[2020-06-11 13:40] LABS: ALANINE AMINOTRANSFERASE 22 U/L (0-55); ALBUMIN 4.4 GM/DL (3.2-4.5); ALKALINE PHOSPHATASE 78 U/L (40-136); BILIRUBIN,TOTAL 0.6 MG/DL (0.1-1.0); BUN/CREATININE RATIO 12; CALCIUM 9.4 MG/DL (8.5-10.1); CARBON DIOXIDE 24 MMOL/L (21-32); CHLORIDE 101 MMOL/L (98-107); CREATININE SERUM 0.83 MG/DL (0.60-1.30); GFR ESTIMATED > 60; GLUCOSE 113 MG/DL (70-105); POTASSIUM 4.1 MMOL/L (3.6-5.0); SODIUM 137 MMOL/L (135-145); TOTAL PROTEIN 7.1 GM/DL (6.4-8.2)
== END ==
LOC: LAB 12:57
PROVIDERS: ATTEND Internal Medicine Infectious Disease
DX: A49.02 Methicillin resistant Staphylococcus aureus infection, unspecified site (principal); L02.91 Cutaneous abscess, unspecified; Z79.2 Long term (current) use of antibiotics
CPT/HCPCS: 36415; 80053; 85025

== ENCOUNTER 2020-09-10 05:29 | Outpatient (RCR) | payer MEDICAID ==
[~2020-09-10] VITALS: Ht 170.2 cm; Wt 45.8 kg
[~2020-09-10 05:29] MED LIST changes: +FLUT1BLS13 IH; +GABA-490 PO; +IPRA4AER IH; +METH-731 PO; +SULF-11 PO
== END 2020-09-10 09:55 | disposition home or self-care (01) ==
LOC: PREOP 05:29
PROVIDERS: ATTEND Surgery
DX: Z01.812 Encounter for preprocedural laboratory examination (principal); D64.9 Anemia, unspecified; Z20.822 Contact with and (suspected) exposure to COVID-19
CPT/HCPCS: 87635

== ENCOUNTER → 2020-09-13 | Day surgery (SDC) | payer MEDICAID ==
[~2020-09-13] VITALS: Ht 170.2 cm; Wt 45.8 kg
[~2020-09-13] MED LIST changes: +HURRICAINE EXT TUBE (BENZOCAINE) XX PRN; +LACTATED RINGERS 1,000 ML IV ONE; +LACTATED RINGERS 1,000 ML IV STA; +MIDAZOLAM 2 MG/2 ML (VERSED) VIAL ONE; +PROPOFOL INJECTION 50 ML IV ONE
[2020-09-13 10:30] VITALS: BP 108/76
[2020-09-13 11:57] VITALS: BP 95/60
[2020-09-13 12:00] VITALS: BP 105/66
--- NOTE | 2020-09-13 12:03 | Progress Note-Post Operative ---
Post-Operative Progess Note Surgeon (s)/[place] [facility] Operator (s) Surgeon ROYCE SHAIKH DO [place] [facility] Operator: Tyler Steele, MSIII Pre-Operative Diagnosis melena, dysphagia, iron deficiency anemia Post-Operative Diagnosis Gastritis Hiatal hernia Esophagitis Polyp diverticula int hemorrhoids Procedure & Operative Findings Date of Procedure 09/13/20 Procedure Performed/Findings EGD with bx Colon with hot bx PROCEDURE NOTE: After informed consent was obtained, the patient was brought to the endoscopy suite, placed in bed in left lateral decubitus position. He was administered IV sedation by the CRANE OPERATOR who then monitored vitals the entire time, heart rate, blood pressure and pulse ox and the scope was inserted down the mouth through the esophagus into the stomach. On the way down, noted some mild esophagitis, took a picture, pushed into the stomach, pushed past the antrum into the duodenum. Duodenum looked good. Pulled back and did a biopsy of antrum, then retroflexed the scope, saw hiatal hernia, took a picture of this and then pulled the scope into the GE junction, took another picture of the hiatal hernia and then did a biopsy of the GE junction. Saw some changes here from acid, changes at the Z-line; indicating esophagitis. Pushed the scope back into the stomach, suctioned all the air out of the stomach. At this point pulled the scope up the esophagus and out the mouth. Switched camera, switched gloves, went down below, started the colonoscopy. Pushed all the way into about 150 cm to get all the way to cecum, took a picture of the appendiceal orifice, noted the ileocecal valve and then slowly withdrew the scope, insufflating to look circumferentially at the portillo starting in the cecum, up the ascending colon to the hepatic flexure, then down the transverse colon. In the transverse colon I saw a flat polyp and elected to do a hot biopsy; removed the polyp with two bites. Then to the splenic flexure and into the descending colon, down into the sigmoid; where I saw some diverticula and took a picture. Finally into the rectum, retroflexed in the rectal vault, saw some minimal internal hemorrhoids and took a picture of this. The patient tolerated the procedure and he recovered in the endoscopy suite. Anesthesia Type IV sedation by CRANE OPERATOR Estimated Blood Loss Estimated blood loss (mL): scant Specimens/Packing Specimens Removed antral bx body of stomach bx GE jxn bx transverse colon polyp ROYCE SHAIKH DO Sep 13, 2020 12:03
--- NOTE | 2020-09-13 12:04 | Endoscopy Discharge Instruct ---
Endo Procedure/Findings Findings 1.: Hiatal Hernia, Gastritis 2.: Other Findings (Esophagitis) 3.: Polyp 4.: Diverticulosis, Internal Hemorrhoids Discharge Instructions - Activity: You might feel a little sleepy until tomorrow. This is due to the medicine you received to relax you. Until tomorrow, you should: NOT drive a car, operate machinery or power tools. NOT drink any alcoholic beverages. NOT make any important decisions or sign importortant papers. Do not return to work until tomorrow, unless otherwise instructed. Resume previous activities tomorrow. Diet: Start by taking liquids. If you tolerate liquids, advance to solid food. 1.: EGD in 1 year 2.: Colonscopy in 5 years Notify Physician - If you experience excessive bleeding, unusual abdominal pain, fever, or chest pain, contact your doctor immediately. ROYCE SHAIKH DO Sep 13, 2020 12:03
[2020-09-13 12:05] VITALS: BP 106/52
[2020-09-13 12:20] VITALS: BP 106/52
[2020-09-13 12:50] VITALS: BP 99/68
--- NOTE | 2020-09-13 15:18 | Anesthesia-General Post-Op ---
MAC Patient Condition Mental Status/LOC: Same as Preop Cardiovascular: Satisfactory Nausea/Vomiting: Absent Respiratory: Satisfactory Pain: Controlled Complications: Absent Post Op Complications Complications None Follow Up Care/Instructions Patient Instructions None needed. Anesthesiology Discharge Order Discharge Order Patient was seen after the procedure and he was doing well, no complaints, stable vital signs, no apparent adverse anesthesia problems. CORINA GAONA DO Sep 13, 2020 15:18
== END ==
LOC: ENDO 10:11
PROVIDERS: ATTEND Surgery
DX: D12.3 Benign neoplasm of transverse colon (principal); K29.70 Gastritis, unspecified, without bleeding; K44.9 Diaphragmatic hernia without obstruction or gangrene; K20.90 Esophagitis, unspecified without bleeding; K64.8 Other hemorrhoids; K57.30 Diverticulosis of large intestine without perforation or abscess without bleeding; D50.9 Iron deficiency anemia, unspecified; J44.9 Chronic obstructive pulmonary disease, unspecified; F32.9 Major depressive disorder, single episode, unspecified; F41.9 Anxiety disorder, unspecified; F43.10 Post-traumatic stress disorder, unspecified; F17.210 Nicotine dependence, cigarettes, uncomplicated; Z79.01 Long term (current) use of anticoagulants; Z79.899 Other long term (current) drug therapy; Z79.891 Long term (current) use of opiate analgesic; Z79.51 Long term (current) use of inhaled steroids
CPT/HCPCS: 88305